=== PATIENT | female | born 1980 ===

== ENCOUNTER 2019-01-13 15:24 | Inpatient (IN) | payer SELFPAY ==
[2019-01-13] MEDS ORDERED: NACL 0.9% 1000 ML 1,000 ML IV ONE (15:32)
--- NOTE | 2019-01-13 15:42 | Emergency Department Report ---
ED Altered Mental Status HPI - General Chief Complaint: Altered Mental Status Stated Complaint: AMS Time Seen by Provider: 01/13/19 15:31 Source: EMS Mode of arrival: Stretcher Limitations: Altered Mental Status - History of Present Illness Initial Comments: Ms. French is a 38 yo Indonesian speaking patient who presents with possible seizure, altered mental status, coffee ground emesis who presents from [facility]. Hx limited due to acute illness. She shook her head when asked if in pain. EMS was provided limited hx. Patient has been officiallyl released from incarceration according to flat folder and EMS. She has been incarcerated since July. MD Complaint: altered mental status, decreased responsiveness -: Sudden Severity: severe Consistency of Symptoms: getting worse Context: unknown - Related Data Allergies Allergy/AdvReac Type Severity Reaction Status Date / Time Unable to Assess Allergy Unverified 01/13/19 15:42 ED Review of Systems ROS: Stated complaint: AMS Other details as noted in HPI Comment: Unobtainable due to pts medical conditions (acute illness AMS) ED Past Medical Hx - Past Medical History Additional medical history: unknown - Surgical History Additional Surgical History: unknown ED Physical Exam - General Limitations: Altered Mental Status General appearance: lethargic, other (ill appearing) - Head Head exam: Present: atraumatic, normocephalic - Eye Eye exam: Present: PERRL, other (esotropia ). Absent: scleral icterus, conjunctival injection - ENT ENT exam: Present: mucous membranes dry, other (tacky dry membranes, dried blood at lips, poor hygiene) - Neck Neck exam: Present: normal inspection, full ROM. Absent: meningismus - Respiratory Respiratory exam: Present: normal lung sounds bilaterally, accessory muscle use, prolonged expiratory, other (Kussmaul respirations). Absent: wheezes, rales, rhonchi - Cardiovascular Cardiovascular Exam: Present: normal rhythm, tachycardia. Absent: systolic murmur - GI/Abdominal GI/Abdominal exam: Present: soft. Absent: distended, tenderness, guarding, rebound - Rectal Rectal exam: Present: other (yellow orange stool, gross blood +hemorrhoids) - Extremities Exam Extremities exam: Present: other (no deformity) - Back Exam Back exam: Present: normal inspection - Neurological Exam Neurological exam: Present: altered - Psychiatric Psychiatric exam: Present: flat affect - Skin Skin exam: Present: pallor ED Course Vital Signs 01/13/19 01/13/19 01/13/19 15:30 15:40 15:46 Temperature 99.2 F Pulse Rate 149 H 149 H Respiratory 31 H 26 H 24 Rate Blood Pressure 155/84 155/84 O2 Sat by Pulse 100 100 Oximetry 01/13/19 01/13/19 01/13/19 16:00 16:16 16:30 Temperature Pulse Rate 130 H 124 H 116 H Respiratory 17 17 22 Rate Blood Pressure 142/109 142/109 113/72 O2 Sat by Pulse 99 100 Oximetry 01/13/19 01/13/19 01/13/19 16:46 17:00 17:16 Temperature Pulse Rate 118 H 121 H 119 H Respiratory 25 H 28 H 21 Rate Blood Pressure 124/77 126/81 124/70 O2 Sat by Pulse Oximetry 01/13/19 17:30 Temperature Pulse Rate 121 H Respiratory 22 Rate Blood Pressure 124/70 O2 Sat by Pulse 100 Oximetry - Lab Data Result diagrams: 01/13/19 15:43 01/13/19 15:43 Lab Results 01/13/19 01/13/19 01/13/19 Range/Units 15:40 15:43 15:43 WBC 13.6 H (4.5-11.0) K/mm3 RBC 3.94 (3.65-5.03) M/mm3 Hgb 11.5 (10.1-14.3) gm/dl Hct 34.6 (30.3-42.9) % MCV 88 (79-97) fl MCH 29 (28-32) pg MCHC 33 (30-34) % RDW 14.7 (13.2-15.2) % Plt Count 317 (140-440) K/mm3 Lymph % (Auto) 5.4 L (13.4-35.0) % Clinch % (Auto) 5.8 (0.0-7.3) % Eos % (Auto) 0.0 (0.0-4.3) % Baso % (Auto) 0.2 (0.0-1.8) % Lymph # 0.7 L (1.2-5.4) K/mm3 Clinch # 0.8 (0.0-0.8) K/mm3 Eos # 0.0 (0.0-0.4) K/mm3 Baso # 0.0 (0.0-0.1) K/mm3 Seg Neutrophils % 88.6 H (40.0-70.0) % Seg Neutrophils # 12.0 H (1.8-7.7) K/mm3 PT TNR INR TNR APTT TNR POC ABG pH (7.35-7.45) POC ABG pO2 (80-105) POC ABG HCO3 (22-26 mml/L) POC ABG Total CO2 (23-27mmol/L) POC ABG O2 Sat POC ABG Base Excess ((-2) - (+3)mmol/L) FiO2 % Sodium (137-145) mmol/L Potassium (3.6-5.0) mmol/L Chloride (98-107) mmol/L Carbon Dioxide (22-30) mmol/L Anion Gap mmol/L BUN (7-17) mg/dL Creatinine (0.7-1.2) mg/dL Estimated GFR ml/min BUN/Creatinine Ratio % Glucose (65-100) mg/dL POC Glucose 109 H (70-105) Lactic Acid (0.7-2.0) mmol/L Calcium (8.4-10.2) mg/dL Total Bilirubin (0.1-1.2) mg/dL AST (5-40) units/L ALT (7-56) units/L Alkaline Phosphatase (35-129) units/L Ammonia (25-60) umol/L Total Creatine Kinase (30-135) units/L Troponin T (0.00-0.029) ng/mL Total Protein (6.3-8.2) g/dL Albumin (3.9-5) g/dL Albumin/Globulin Ratio % TSH (0.270-4.200) mlU/mL HCG, Quant (0-4) mIU/mL Urine Color (Yellow) Urine Turbidity (Clear) Urine pH (5.0-7.0) Ur Specific [place] (1.003-1.030) Urine Protein (Negative) mg/dL Urine Glucose (UA) (Negative) mg/dL Urine Ketones (Negative) mg/dL Urine Blood (Negative) Urine Nitrite (Negative) Urine Bilirubin (Negative) Urine Urobilinogen (<2.0) mg/dL Ur Leukocyte Esterase (Negative) Urine WBC (Auto) (0.0-6.0) /HPF Urine RBC (Auto) (0.0-6.0) /HPF U Epithel Cells (Auto) (0-13.0) /HPF Urine Mucus /HPF Salicylates (2.8-20.0) mg/dL Urine Opiates Screen Urine Methadone Screen Acetaminophen (10.0-30.0) ug/mL Ur Barbiturates Screen Ur Phencyclidine Scrn Ur Amphetamines Screen U Benzodiazepines Scrn Urine Cocaine Screen U Marijuana (THC) Screen Drugs of Abuse Note Plasma/Serum Alcohol (0-0.07) % 01/13/19 01/13/19 01/13/19 Range/Units 15:43 15:43 15:43 WBC (4.5-11.0) K/mm3 RBC (3.65-5.03) M/mm3 Hgb (10.1-14.3) gm/dl Hct (30.3-42.9) % MCV (79-97) fl MCH (28-32) pg MCHC (30-34) % RDW (13.2-15.2) % Plt Count (140-440) K/mm3 Lymph % (Auto) (13.4-35.0) % Clinch % (Auto) (0.0-7.3) % Eos % (Auto) (0.0-4.3) % Baso % (Auto) (0.0-1.8) % Lymph # (1.2-5.4) K/mm3 Clinch # (0.0-0.8) K/mm3 Eos # (0.0-0.4) K/mm3 Baso # (0.0-0.1) K/mm3 Seg Neutrophils % (40.0-70.0) % Seg Neutrophils # (1.8-7.7) K/mm3 PT INR APTT POC ABG pH (7.35-7.45) POC ABG pO2 (80-105) POC ABG HCO3 (22-26 mml/L) POC ABG Total CO2 (23-27mmol/L) POC ABG O2 Sat POC ABG Base Excess ((-2) - (+3)mmol/L) FiO2 % Sodium 145 (137-145) mmol/L Potassium 2.8 L* (3.6-5.0) mmol/L Chloride 101.9 (98-107) mmol/L Carbon Dioxide 9 L* D (22-30) mmol/L Anion Gap 37 mmol/L BUN 23 H (7-17) mg/dL Creatinine 0.8 (0.7-1.2) mg/dL Estimated GFR > 60 ml/min BUN/Creatinine Ratio 29 % Glucose 109 H (65-100) mg/dL POC Glucose (70-105) Lactic Acid 14.10 H* (0.7-2.0) mmol/L Calcium 8.2 L (8.4-10.2) mg/dL Total Bilirubin 1.30 H (0.1-1.2) mg/dL AST 46 H (5-40) units/L ALT 34 (7-56) units/L Alkaline Phosphatase 86 (35-129) units/L Ammonia 157.0 H (25-60) umol/L Total Creatine Kinase 133 (30-135) units/L Troponin T 0.019 (0.00-0.029) ng/mL Total Protein 6.8 (6.3-8.2) g/dL Albumin 3.7 L (3.9-5) g/dL Albumin/Globulin Ratio 1.2 % TSH (0.270-4.200) mlU/mL HCG, Quant (0-4) mIU/mL Urine Color (Yellow) Urine Turbidity (Clear) Urine pH (5.0-7.0) Ur Specific [place] (1.003-1.030) Urine Protein (Negative) mg/dL Urine Glucose (UA) (Negative) mg/dL Urine Ketones (Negative) mg/dL Urine Blood (Negative) Urine Nitrite (Negative) Urine Bilirubin (Negative) Urine Urobilinogen (<2.0) mg/dL Ur Leukocyte Esterase (Negative) Urine WBC (Auto) (0.0-6.0) /HPF Urine RBC (Auto) (0.0-6.0) /HPF U Epithel Cells (Auto) (0-13.0) /HPF Urine Mucus /HPF Salicylates (2.8-20.0) mg/dL Urine Opiates Screen Urine Methadone Screen Acetaminophen (10.0-30.0) ug/mL Ur Barbiturates Screen Ur Phencyclidine Scrn Ur Amphetamines Screen U Benzodiazepines Scrn Urine Cocaine Screen U Marijuana (THC) Screen Drugs of Abuse Note Plasma/Serum Alcohol (0-0.07) % 01/13/19 01/13/19 01/13/19 Range/Units 15:43 15:43 15:43 WBC (4.5-11.0) K/mm3 RBC (3.65-5.03) M/mm3 Hgb (10.1-14.3) gm/dl Hct (30.3-42.9) % MCV (79-97) fl MCH (28-32) pg MCHC (30-34) % RDW (13.2-15.2) % Plt Count (140-440) K/mm3 Lymph % (Auto) (13.4-35.0) % Clinch % (Auto) (0.0-7.3) % Eos % (Auto) (0.0-4.3) % Baso % (Auto) (0.0-1.8) % Lymph # (1.2-5.4) K/mm3 Clinch # (0.0-0.8) K/mm3 Eos # (0.0-0.4) K/mm3 Baso # (0.0-0.1) K/mm3 Seg Neutrophils % (40.0-70.0) % Seg Neutrophils # (1.8-7.7) K/mm3 PT INR APTT POC ABG pH (7.35-7.45) POC ABG pO2 (80-105) POC ABG HCO3 (22-26 mml/L) POC ABG Total CO2 (23-27mmol/L) POC ABG O2 Sat POC ABG Base Excess ((-2) - (+3)mmol/L) FiO2 % Sodium (137-145) mmol/L Potassium (3.6-5.0) mmol/L Chloride (98-107) mmol/L Carbon Dioxide (22-30) mmol/L Anion Gap mmol/L BUN (7-17) mg/dL Creatinine (0.7-1.2) mg/dL Estimated GFR ml/min BUN/Creatinine Ratio % Glucose (65-100) mg/dL POC Glucose (70-105) Lactic Acid (0.7-2.0) mmol/L Calcium (8.4-10.2) mg/dL Total Bilirubin (0.1-1.2) mg/dL AST (5-40) units/L ALT (7-56) units/L Alkaline Phosphatase (35-129) units/L Ammonia (25-60) umol/L Total Creatine Kinase (30-135) units/L Troponin T (0.00-0.029) ng/mL Total Protein (6.3-8.2) g/dL Albumin (3.9-5) g/dL Albumin/Globulin Ratio % TSH 3.070 (0.270-4.200) mlU/mL HCG, Quant (0-4) mIU/mL Urine Color (Yellow) Urine Turbidity (Clear) Urine pH (5.0-7.0) Ur Specific [place] (1.003-1.030) Urine Protein (Negative) mg/dL Urine Glucose (UA) (Negative) mg/dL Urine Ketones (Negative) mg/dL Urine Blood (Negative) Urine Nitrite (Negative) Urine Bilirubin (Negative) Urine Urobilinogen (<2.0) mg/dL Ur Leukocyte Esterase (Negative) Urine WBC (Auto) (0.0-6.0) /HPF Urine RBC (Auto) (0.0-6.0) /HPF U Epithel Cells (Auto) (0-13.0) /HPF Urine Mucus /HPF Salicylates < 0.3 L (2.8-20.0) mg/dL Urine Opiates Screen Urine Methadone Screen Acetaminophen < 5.0 L (10.0-30.0) ug/mL Ur Barbiturates Screen Ur Phencyclidine Scrn Ur Amphetamines Screen U Benzodiazepines Scrn Urine Cocaine Screen U Marijuana (THC) Screen Drugs of Abuse Note Plasma/Serum Alcohol (0-0.07) % 01/13/19 01/13/19 01/13/19 Range/Units 15:43 16:23 16:23 WBC (4.5-11.0) K/mm3 RBC (3.65-5.03) M/mm3 Hgb (10.1-14.3) gm/dl Hct (30.3-42.9) % MCV (79-97) fl MCH (28-32) pg MCHC (30-34) % RDW (13.2-15.2) % Plt Count (140-440) K/mm3 Lymph % (Auto) (13.4-35.0) % Clinch % (Auto) (0.0-7.3) % Eos % (Auto) (0.0-4.3) % Baso % (Auto) (0.0-1.8) % Lymph # (1.2-5.4) K/mm3 Clinch # (0.0-0.8) K/mm3 Eos # (0.0-0.4) K/mm3 Baso # (0.0-0.1) K/mm3 Seg Neutrophils % (40.0-70.0) % Seg Neutrophils # (1.8-7.7) K/mm3 PT INR APTT POC ABG pH (7.35-7.45) POC ABG pO2 (80-105) POC ABG HCO3 (22-26 mml/L) POC ABG Total CO2 (23-27mmol/L) POC ABG O2 Sat POC ABG Base Excess ((-2) - (+3)mmol/L) FiO2 % Sodium (137-145) mmol/L Potassium (3.6-5.0) mmol/L Chloride (98-107) mmol/L Carbon Dioxide (22-30) mmol/L Anion Gap mmol/L BUN (7-17) mg/dL Creatinine (0.7-1.2) mg/dL Estimated GFR ml/min BUN/Creatinine Ratio % Glucose (65-100) mg/dL POC Glucose (70-105) Lactic Acid (0.7-2.0) mmol/L Calcium (8.4-10.2) mg/dL Total Bilirubin (0.1-1.2) mg/dL AST (5-40) units/L ALT (7-56) units/L Alkaline Phosphatase (35-129) units/L Ammonia (25-60) umol/L Total Creatine Kinase (30-135) units/L Troponin T (0.00-0.029) ng/mL Total Protein (6.3-8.2) g/dL Albumin (3.9-5) g/dL Albumin/Globulin Ratio % TSH (0.270-4.200) mlU/mL HCG, Quant (0-4) mIU/mL Urine Color Peri (Yellow) Urine Turbidity Clear (Clear) Urine pH 6.0 (5.0-7.0) Ur Specific [place] 1.027 (1.003-1.030) Urine Protein 100 mg/dl (Negative) mg/dL Urine Glucose (UA) Neg (Negative) mg/dL Urine Ketones 20 (Negative) mg/dL Urine Blood Sm (Negative) Urine Nitrite Neg (Negative) Urine Bilirubin Neg (Negative) Urine Urobilinogen 4.0 (<2.0) mg/dL Ur Leukocyte Esterase Neg (Negative) Urine WBC (Auto) 4.0 (0.0-6.0) /HPF Urine RBC (Auto) 1.0 (0.0-6.0) /HPF U Epithel Cells (Auto) 1.0 (0-13.0) /HPF Urine Mucus 2+ /HPF Salicylates (2.8-20.0) mg/dL Urine Opiates Screen Presumptive negative Urine Methadone Screen Presumptive negative Acetaminophen (10.0-30.0) ug/mL Ur Barbiturates Screen Presumptive negative Ur Phencyclidine Scrn Presumptive negative Ur Amphetamines Screen Presumptive negative U Benzodiazepines Scrn Presumptive negative Urine Cocaine Screen Presumptive negative U Marijuana (THC) Screen Presumptive negative Drugs of Abuse Note Disclamer Plasma/Serum Alcohol < 0.01 (0-0.07) % 01/13/19 01/13/19 01/13/19 Range/Units 17:44 17:44 18:03 WBC (4.5-11.0) K/mm3 RBC (3.65-5.03) M/mm3 Hgb (10.1-14.3) gm/dl Hct (30.3-42.9) % MCV (79-97) fl MCH (28-32) pg MCHC (30-34) % RDW (13.2-15.2) % Plt Count (140-440) K/mm3 Lymph % (Auto) (13.4-35.0) % Clinch % (Auto) (0.0-7.3) % Eos % (Auto) (0.0-4.3) % Baso % (Auto) (0.0-1.8) % Lymph # (1.2-5.4) K/mm3 Clinch # (0.0-0.8) K/mm3 Eos # (0.0-0.4) K/mm3 Baso # (0.0-0.1) K/mm3 Seg Neutrophils % (40.0-70.0) % Seg Neutrophils # (1.8-7.7) K/mm3 PT 20.1 H INR 1.76 H APTT 29.2 POC ABG pH 7.371 (7.35-7.45) POC ABG pO2 142 H (80-105) POC ABG HCO3 10.6 (22-26 mml/L) POC ABG Total CO2 11 (23-27mmol/L) POC ABG O2 Sat 99 POC ABG Base Excess -15 ((-2) - (+3)mmol/L) FiO2 32 % Sodium (137-145) mmol/L Potassium (3.6-5.0) mmol/L Chloride (98-107) mmol/L Carbon Dioxide (22-30) mmol/L Anion Gap mmol/L BUN (7-17) mg/dL Creatinine (0.7-1.2) mg/dL Estimated GFR ml/min BUN/Creatinine Ratio % Glucose (65-100) mg/dL POC Glucose (70-105) Lactic Acid (0.7-2.0) mmol/L Calcium (8.4-10.2) mg/dL Total Bilirubin (0.1-1.2) mg/dL AST (5-40) units/L ALT (7-56) units/L Alkaline Phosphatase (35-129) units/L Ammonia (25-60) umol/L Total Creatine Kinase (30-135) units/L Troponin T (0.00-0.029) ng/mL Total Protein (6.3-8.2) g/dL Albumin (3.9-5) g/dL Albumin/Globulin Ratio % TSH (0.270-4.200) mlU/mL HCG, Quant < 2 (0-4) mIU/mL Urine Color (Yellow) Urine Turbidity (Clear) Urine pH (5.0-7.0) Ur Specific [place] (1.003-1.030) Urine Protein (Negative) mg/dL Urine Glucose (UA) (Negative) mg/dL Urine Ketones (Negative) mg/dL Urine Blood (Negative) Urine Nitrite (Negative) Urine Bilirubin (Negative) Urine Urobilinogen (<2.0) mg/dL Ur Leukocyte Esterase (Negative) Urine WBC (Auto) (0.0-6.0) /HPF Urine RBC (Auto) (0.0-6.0) /HPF U Epithel Cells (Auto) (0-13.0) /HPF Urine Mucus /HPF Salicylates (2.8-20.0) mg/dL Urine Opiates Screen Urine Methadone Screen Acetaminophen (10.0-30.0) ug/mL Ur Barbiturates Screen Ur Phencyclidine Scrn Ur Amphetamines Screen U Benzodiazepines Scrn Urine Cocaine Screen U Marijuana (THC) Screen Drugs of Abuse Note Plasma/Serum Alcohol (0-0.07) % 01/13/19 19:13 EKG obtained 1906 Sinus tachycardia rate 125 beats a minute normal intervals no ST-T signs ischemia normal EKG with exception of tachycardia - Medical Decision Making Mrs. French presents with altered mental status, seizure activity coffee-ground emesis from [facility]. I personally witnessed I witnessed 60 second generalized tonic clonic seizure approximately 30 minutes after patient arrived to the emergency department. 1. altered mental status, seizure: possible status epilepticus vs alcohol withdrawal syndrome, hepatic encephalopathy severe hyperammonemia ?toxic ingestion 2. severe lactic acidosis caused by recurrent seizure vs sepsis vs unknown toxic ingestion 3. liver dysfunction? disease?: hyperammonemia, elevated AST, elevated PT/INR with normal appearance of liver on CT scan 4. cholelithiasis 5. severe metabolic acidosis: must consider toxic ingestion Critical Care Time: Yes Critical care time in (mins) excluding proc time.: 60 Critical care attestation.: If time is entered above; I have spent that time in minutes in the direct care of this critically ill patient, excluding procedure time. 40 minutes of critical care time excluding procedures were used in the care of the patient. Patient required multiple assessments and interventions. I reviewed the electronic medical record. I spoke with consultants involved in the care of the patient. ED Disposition Clinical Impression: Acute metabolic encephalopathy, Liver disease, Lactic acidosis, Hyperammonemia, Status epilepticus, Cholelithiasis, Seizure, Metabolic acidosis Disposition: 09 OP ADMIT IP TO THIS HOSP Is pt being admited?: Yes Does the pt Need Aspirin: No Condition: Stable
[2019-01-13] MEDS ORDERED: ATIVAN IV ONE ×2 (15:55→17:00)
[2019-01-13] MEDS ORDERED: ATIVAN ONE (15:57)
[2019-01-13 15:59] LABS: Basophils % (Auto) 0.2 % (0.0-1.8); Hematocrit 34.6 % (30.3-42.9); Hemoglobin 11.5 gm/dl (10.1-14.3); Lymphocytes # (Auto) 0.7 K/mm3 (1.2-5.4); Lymphocytes % (Auto) 5.4 % (13.4-35.0); Mean Corpuscular HGB Conc 33 % (30-34); Mean Corpuscular Volume 88 fl (79-97); Monocytes # (Auto) 0.8 K/mm3 (0.0-0.8); Monocytes % (Auto) 5.8 % (0.0-7.3); Platelet Count 317 K/mm3 (140-440); Red Blood Count 3.94 M/mm3 (3.65-5.03); Red Cell Distribution Width 14.7 % (13.2-15.2)
--- NOTE | 2019-01-13 16:21 | XRay Report ---
CHEST 1 VIEW INDICATION: Altered Mental Status. COMPARISON: FINDINGS: Support devices: None. Heart: Within normal limits. Lungs/Pleura: No acute air space or interstitial disease. Additional findings: None. IMPRESSION: No acute findings. Signer Name: Gareth Mehta Jr, MD Signed: 01/13/2019 4:16 PM Workstation Name: [id number]
[2019-01-13] MEDS ORDERED: VANCOMYCIN 1,250 MG in NACL 0.9% 500 ML 500 ML IV ONE (16:22)
[2019-01-13] MEDS ORDERED: NACL 0.9% 1000 ML IV ONE (16:22)
[2019-01-13 16:24] LABS: Alanine Aminotransferase 34 units/L (7-56); Albumin 3.7 g/dL (3.9-5); BUN/Creatinine Ratio 29; Blood Urea Nitrogen 23 mg/dL (7-17); Calcium 8.2 mg/dL (8.4-10.2); Hemolysis Index 4
[2019-01-13 16:38] LABS: Partial Thromboplastin Time TNR Sec. (24.2-36.6)
[2019-01-13 16:41] LABS: INR TNR (0.87-1.13)
[2019-01-13] MEDS ORDERED: KEPPRA 1,000 MG/NS 0.75% 100ML 1,000 MG/100 ML BAG IV ONE (16:51)
[2019-01-13 16:54] LABS: Bilirubin,Urine NEG (Negative); Blood,Urine SM (Negative); Color,Urine Amber (Yellow); Mucus,Urine 2+ /HPF
[2019-01-13 16:59] LABS: Amphetamine Screen,Urine PRESUMPTIVE NEGATIVE; Benzodiazepines Screen,Urine PRESUMPTIVE NEGATIVE; Cannabinoid Screen,Urine PRESUMPTIVE NEGATIVE; Cocaine Screen,Urine PRESUMPTIVE NEGATIVE; Methadone Screen,Urine PRESUMPTIVE NEGATIVE; Opiate Screen,Urine PRESUMPTIVE NEGATIVE
[2019-01-13] MEDS ORDERED: VANCOMYCIN PHARMACY TO DOSE IV SCH ×2 (17:00→20:00)
[2019-01-13] MEDS ORDERED: CEPHULAC PO ONE (17:57)
[2019-01-13 18:36] LABS: INR 1.76 (0.87-1.13); Partial Thromboplastin Time 29.2 Sec. (24.2-36.6)
--- NOTE | 2019-01-13 19:03 | Cat Scan Report ---
CT HEAD WITHOUT CONTRAST INDICATION / CLINICAL INFORMATION: ams. Seizure. TECHNIQUE: All CT scans at this location are performed using CT dose reduction for ALARA by means of automated e xposure control. COMPARISON: None available. FINDINGS: HEMORRHAGE: No evidence of intracranial hemorrhage or extra-axial fluid collection. EXTRA-AXIAL SPACES: Cortical sulci, sylvian fissures and basilar cisterns have an unremarkable appear ance. VENTRICULAR SYSTEM: The ventricular system is of normal size and configuration. CEREBRAL PARENCHYMA: No areas of abnormal brain parenchymal attenuation are identified. There is no i ndication of recent infarction. MIDLINE SHIFT OR HERNIATION: There is no mass effect. CEREBELLUM / BRAINSTEM: Brainstem and cerebellum have an unremarkable appearance. INTRACRANIAL VESSELS:No abnormalities are identified on this noncontrast head CT. ORBITS: visualized portions of the orbits have an unremarkable appearance. SOFT TISSUES of HEAD: No significant abnormality. CALVARIUM: Evaluation of bone windows reveals no abnormalities. PARANASAL SINUSES / MASTOID AIR CELLS: Paranasal sinuses are free from inflammatory mucosal disease. Mastoid air cells are normally pneumatized. IMPRESSION: 1. No acute intracranial abnormality is identified on CT head without contrast.. Signer Name: Lucio Evans MD Signed: 01/13/2019 6:59 PM Workstation Name: [id number]
--- NOTE | 2019-01-13 19:07 | Cat Scan Report ---
CT abdomen pelvis w con INDICATION / CLINICAL INFORMATION: elevated ammonia severe lactic acidosis. TECHNIQUE: All CT scans at this location are performed using CT dose reduction for ALARA by means of automated e xposure control. COMPARISON: None available. FINDINGS: Acute disease is seen in either lower lung. ABDOMEN: Cholelithiasis. The liver, spleen, pancreas and kidneys are normal. No small bowel distention. The colon appears normal. Pelvis: The appendix is normal. No dependent fluid collections or inflammatory changes are seen in the pelvis. No significant osseous abnormality. IMPRESSION: 1. Cholelithiasis. 2. No acute abnormality. Signer Name: Kartik Lang MD Signed: 01/13/2019 7:03 PM Workstation Name: [id number]
[2019-01-13] MEDS ORDERED: PROVENTIL IH PRN (19:42)
[2019-01-13] MEDS ORDERED: SODIUM CHLORIDE FLUSH SYRINGE 10 ML IV PRN (19:42)
[2019-01-13] MEDS ORDERED: ZOFRAN IV PRN (19:42)
[2019-01-13] MEDS ORDERED: TYLENOL PR PRN (19:52)
--- NOTE | 2019-01-13 19:53 | XRay Report ---
ABDOMEN 01/13/2019 INDICATION / CLINICAL INFORMATION: NG placement. COMPARISON: None available. FINDINGS: Nasogastric tube is positioned in the mid stomach. Signer Name: Kartik Lang MD Signed: 01/13/2019 7:49 PM Workstation Name: [id number]
[2019-01-13] MEDS ORDERED: NACL 0.9% 1000 ML 1,000 ML IV SCH (20:00)
[2019-01-13] MEDS ORDERED: KCL 10MEQ/100ML 40 MEQ/400 ML BAG IV ONE (20:13)
[2019-01-13] MEDS ORDERED: NACL 0.9% 1000 ML 1,000 ML ONE (20:25)
[2019-01-13] MEDS: KCL 10MEQ/100ML 10 MEQ/100 ML BAG IV SCH ×3 (20:30→23:11)
--- NOTE | 2019-01-13 20:32 | History and Physical Report ---
History of Present Illness Date of examination: 01/13/19 Date of admission: 01/13/2019 Chief complaint: AMS ?? Tachycardia possible dehydration History of present illness: 38-year-old female with unknown past medical history presents to [facility] ED via [facility] transportation services with complaints of altered mental status. Patient has been an inmate at [facility] since July of this year. According to EMS patient has been officially release from [facility] as of today. History is taken from medical records. Review of medical records shows that patient was transferred from [facility] to [facility] for further evaluation of possible dehydration, lethargy, and not verbally responding. At the [facility] she was tachycardic with heart rate of 131 bpm, had coffee ground emesis, and profoundly noted confusion. Past History Past Medical History: other (unable to obtain due to patient's mentation) Past Surgical History: Other (unable to obtain due to patient's mentation) Social history: other (incarcerated from July of this year, has been officially release from incarceration per EMS report) Family history: no significant family history Medications and Allergies Allergies Allergy/AdvReac Type Severity Reaction Status Date / Time Unable to Assess Allergy Unverified 01/13/19 15:42 Active Meds: Active Medications Acetaminophen (Tylenol) 650 mg NJ Q4H PRN PRN Reason: Pain, Mild (1-3)/ Fever>100.5 Albuterol (Proventil) 2.5 mg IH Q3HRT PRN PRN Reason: Shortness Of Breath Enoxaparin Sodium (Lovenox) 40 mg SUB-Q QDAY@2200 JOLIE Ceftriaxone Sodium (Rocephin/Ns 2 Gm/100 Ml) 2 gm in 100 mls @ 200 mls/hr IV Q12HR JOLIE; Protocol Sodium Chloride (Nacl 0.9% 1000 Ml) 1,000 mls @ 50 mls/hr IV DIRECT JOLIE Cefepime HCl (Maxipime/Ns 1 Gm/100 Ml) 1 gm in 100 mls @ 200 mls/hr IV Q8HR JOLIE; Protocol Levetiracetam 1,000 mg/ (Dextrose) 110 mls @ 400 mls/hr IV Q12HR JOLIE Pantoprazole Sodium 80 mg/ (Sodium Chloride) 100 mls @ 10 mls/hr IV DIRECT JOLIE Potassium Chloride (Kcl 10meq/100ml) 10 meq in 100 mls @ 100 mls/hr IV Q1H JOLIE Stop: 01/13/19 23:59 Lorazepam (Ativan) 2 mg IV Q4H PRN PRN Reason: Agitation; seizure Morphine Sulfate (Morphine) 2 mg IV Q4H PRN PRN Reason: Pain, Moderate (4-6) Ondansetron HCl (Zofran) 4 mg IV Q8H PRN PRN Reason: Nausea And Vomiting Sodium Bicarbonate (Sodium Bicarbonate 50meq Syringe) 50 meq IV ONCE JOLIE Stop: 01/14/19 20:01 Sodium Chloride (Sodium Chloride Flush Syringe 10 Ml) 10 ml IV BID JOLIE Sodium Chloride (Sodium Chloride Flush Syringe 10 Ml) 10 ml IV PRN PRN PRN Reason: LINE FLUSH Review of Systems ROS unobtainable: due to mental status Exam - Physical Exam Narrative exam: Physical exam General appearance: Present: Mild distress, awake, ill appearing, adult female - EENT Eyes: Present: PERRL, ENT: hearing intact, poor dentition, dry mucous membrane, dried blood on lips and teeth - Neck Neck: Present: supple, normal ROM - Respiratory Respiratory effort: Non-labored, on supplemental oxygen Respiratory: bilateral: diminished (bases) - Cardiovascular Heart rate: 121 (bpm) Rhythm: Tachycardic Heart Sounds: Present: S1 & S2. Absent: rub, click - Extremities Extremities: no ischemia, pulses intact, - Peripheral Assessment Peripheral Pulses: within normal limits - Abdominal General gastrointestinal: soft, non-tender, normal bowel sounds - Integumentary Integumentary: Present: warm, dry, pallor - Musculoskeletal Musculoskeletal: generalized weakness - Psychiatric Psychiatric: Flat affect, unable to assess - Constitutional Vitals: Temp Pulse Resp BP Pulse Ox 99.2 F 121 H 22 124/70 100 01/13/19 15:40 01/13/19 17:30 01/13/19 17:30 01/13/19 17:30 01/13/19 17:30 Results - Labs CBC & Chem 7: 01/13/19 15:43 01/13/19 15:43 Labs: Laboratory Last Values WBC 13.6 K/mm3 (4.5-11.0) H 01/13/19 15:43 RBC 3.94 M/mm3 (3.65-5.03) 07/30/19 15:43 Hgb 11.5 gm/dl (10.1-14.3) 01/13/19 15:43 Hct 34.6 % (30.3-42.9) 01/13/19 15:43 MCV 88 fl (79-97) 01/13/19 15:43 MCH 29 pg (28-32) 01/13/19 15:43 MCHC 33 % (30-34) 01/13/19 15:43 RDW 14.7 % (13.2-15.2) 01/13/19 15:43 Plt Count 317 K/mm3 (140-440) 01/13/19 15:43 Lymph % (Auto) 5.4 % (13.4-35.0) L 01/13/19 15:43 [place] % (Auto) 5.8 % (0.0-7.3) 01/13/19 15:43 Eos % (Auto) 0.0 % (0.0-4.3) 01/13/19 15:43 Baso % (Auto) 0.2 % (0.0-1.8) 01/13/19 15:43 Lymph # 0.7 K/mm3 (1.2-5.4) L 01/13/19 15:43 [place] # 0.8 K/mm3 (0.0-0.8) 01/13/19 15:43 Eos # 0.0 K/mm3 (0.0-0.4) 01/13/19 15:43 Baso # 0.0 K/mm3 (0.0-0.1) 01/13/19 15:43 Seg Neutrophils % 88.6 % (40.0-70.0) H 01/13/19 15:43 Seg Neutrophils # 12.0 K/mm3 (1.8-7.7) H 01/13/19 15:43 PT 20.1 Sec. (12.2-14.9) H 01/13/19 17:44 INR 1.76 (0.87-1.13) H 01/13/19 17:44 APTT 29.2 Sec. (24.2-36.6) 01/13/19 17:44 POC ABG pH 7.371 (7.35-7.45) 01/13/19 18:03 POC ABG pO2 142 (80-105) H 01/13/19 18:03 POC ABG HCO3 10.6 (22-26 mml/L) 01/13/19 18:03 POC ABG Total CO2 11 (23-27mmol/L) 01/13/19 18:03 POC ABG O2 Sat 99 01/13/19 18:03 POC ABG Base Excess -15 ((-2) - (+3)mmol/L) 01/13/19 18:03 32 % 01/13/19 18:03 Sodium 145 mmol/L (137-145) 01/13/19 15:43 Potassium 2.8 mmol/L (3.6-5.0) L* 01/13/19 15:43 Chloride 101.9 mmol/L (98-107) 01/13/19 15:43 Carbon Dioxide 9 mmol/L (22-30) L* D 01/13/19 15:43 37 mmol/L 01/13/19 15:43 BUN 23 mg/dL (7-17) H 01/13/19 15:43 0.8 mg/dL (0.7-1.2) 01/13/19 15:43 Estimated GFR > 60 ml/min 01/13/19 15:43 29 % 01/13/19 15:43 Glucose 109 mg/dL (65-100) H 01/13/19 15:43 POC Glucose 109 (70-105) H 01/13/19 15:40 Lactic Acid 14.10 mmol/L (0.7-2.0) H* 01/13/19 15:43 Calcium 8.2 mg/dL (8.4-10.2) L 01/13/19 15:43 1.30 mg/dL (0.1-1.2) H 01/13/19 15:43 AST 46 units/L (5-40) H 01/13/19 15:43 ALT 34 units/L (7-56) 01/13/19 15:43 86 units/L (35-129) 01/13/19 15:43 157.0 umol/L (25-60) H 01/13/19 15:43 296 units/L (91-180) H 01/13/19 15:43 133 units/L (30-135) 01/13/19 15:43 0.019 ng/mL (0.00-0.029) 01/13/19 15:43 6.8 g/dL (6.3-8.2) 01/13/19 15:43 3.7 g/dL (3.9-5) L 01/13/19 15:43 1.2 % 01/13/19 15:43 71 units/L (13-60) H 01/13/19 15:43 TSH 3.070 mlU/mL (0.270-4.200) 01/13/19 15:43 HCG, Quant < 2 mIU/mL (0-4) 01/13/19 17:44 Peri (Yellow) 01/13/19 16:23 Clear (Clear) 01/13/19 16:23 6.0 (5.0-7.0) 01/13/19 16:23 Ur Specific [place] 1.027 (1.003-1.030) 01/13/19 16:23 100 mg/dl mg/dL (Negative) 01/13/19 16:23 Neg mg/dL (Negative) 01/13/19 16:23 20 mg/dL (Negative) 01/13/19 16:23 Sm (Negative) 01/13/19 16:23 Neg (Negative) 01/13/19 16:23 Neg (Negative) 01/13/19 16:23 4.0 mg/dL (<2.0) 01/13/19 16:23 Ur Leukocyte Esterase Neg (Negative) 01/13/19 16:23 4.0 /HPF (0.0-6.0) 01/13/19 16:23 1.0 /HPF (0.0-6.0) 01/13/19 16:23 U Epithel Cells (Auto) 1.0 /HPF (0-13.0) 01/13/19 16:23 2+ /HPF 01/13/19 16:23 Salicylates < 0.3 mg/dL (2.8-20.0) L 01/13/19 15:43 Presumptive negative 01/13/19 16:23 Presumptive negative 01/13/19 16:23 Acetaminophen < 5.0 ug/mL (10.0-30.0) L 07/30/19 15:43 Ur Barbiturates Screen Presumptive negative 01/13/19 16:23 Ur Phencyclidine Scrn Presumptive negative 01/13/19 16:23 Ur Amphetamines Screen Presumptive negative 01/13/19 16:23 U Benzodiazepines Scrn Presumptive negative 01/13/19 16:23 Presumptive negative 01/13/19 16:23 U Marijuana (THC) Screen Presumptive negative 01/13/19 16:23 Disclamer 01/13/19 16:23 Plasma/Serum Alcohol < 0.01 % (0-0.07) 01/13/19 15:43 - Imaging and Cardiology Chest x-ray: report reviewed (Lungs/Pleura: No acute air space or interstitial disease. ), image reviewed Imaging and Cardiology: CT Abdomen/Pelvis: Findings: Acute disease is seen in either lower lung. Abdomen: Cholelithiasis. The liver, spleen, pancreas and kidneys are normal. No small bowel distention. The colon appears normal. Pelvis: The appendix is normal. No dependent fluid collections or inflammatory changes are seen in the pelvis. No significant osseous abnormality. IMPRESSION: 1. Cholelithiasis. 2. No acute abnormality. Abdominal X-ray: Findings: Nasogastric tube is positioned in the mid stomach. CT Head: Findings: HEMORRHAGE: No evidence of intracranial hemorrhage or extra-axial fluid collection. EXTRA-AXIAL SPACES: Cortical sulci, sylvian fissures and basilar cisterns have an unremarkable appearance. VENTRICULAR SYSTEM: The ventricular system is of normal size and configuration. CEREBRAL PARENCHYMA: No areas of abnormal brain parenchymal attenuation are identified. There is no indication of recent infarction. MIDLINE SHIFT OR HERNIATION: There is no mass effect. CEREBELLUM / BRAINSTEM: Brainstem and cerebellum have an unremarkable appear ance. INTRACRANIAL VESSELS:No abnormalities are identified on this noncontrast head CT. ORBITS: visualized portions of the orbits have an unremarkable appearance. SOFT TISSUES of HEAD: No significant abnormality. CALVARIUM: Evaluation of bone windows reveals no abnormalities. PARANASAL SINUSES / MASTOID AIR CELLS: Paranasal sinuses are free from inflammatory mucosal disease. Mastoid air cells are normally pneumatized. IMPRESSION: 1. No acute intracranial abnormality is identified on CT head without contrast. Assessment and Plan Assessment and plan: 38-year-old female with unknown past medical history presents to [facility] ED via [facility] transportation services with complaints of altered mental status, dehydration, coffee ground emesis, and tachycardia. At the time of my examination pt is awake and sitting up in stretcher. She is on 2L supplemental oxygen. She is not able to fully follow commands. She remains non-verbal. Pt has NG tube to LIS with small amount of dark brown drainage in collection canister. Sepsis -Sinus tachycardia at 124bpm -Elevated respiratory rate at 28 breaths per minute -Leukocytosis, WBC 13.6 -Initiate sepsis protocol -Gentle hydration with IVF -IV cefepime and vancomycin Cholelithiasis -Seen on CT abdomen and pelvis -GI consult pending Upper GI bleed -Patient noted to have coffee-ground -NPO -NG tube placed to LIS -Start Protonix drip -GI consulted Acute hepatic encephalopathy -? Chronic liver disease -Hyperammonemia 157, elevated AST 46, elevated lipase 71 --Received lactulose -CT abdomen/pelvis showed normal liver -Continue to monitor hepatic function -GI consulted -Status epilepticus -?? Hx Seizure disorders -Witnessed seizure in ED -Termination of seizure with administration of IV Ativan -IV Ativan prn -IV Keppra 1gm BID -Currently in post ictal state -Seizure precautions initiated -Neuro checks Hypokalemia -Potassium on admission 2.8 -Received IV potassium replacement -Continue to monitor electrolytes, replete as needed Lactic acidosis -Lactic acid on admission 14.10 -on IV Abx -on IVF -continue to monitor DVT PPX -on Lovenox Advance Directives: No VTE prophylaxis?: Chemical Plan of care discussed with patient/family: Yes
[2019-01-13] MEDS: KEPPRA 1,000 MG in D5W 100 ML IV SCH (21:47)
[2019-01-13] MEDS: SODIUM CHLORIDE FLUSH SYRINGE 10 ML IV SCH (21:49)
[2019-01-13] MEDS ORDERED: LOVENOX SUB-Q ONE (21:54)
[2019-01-13] MEDS ORDERED: MAXIPIME/NS 1 GM/100 ML 1 GM/100 ML BAG IV ONE (21:54)
[2019-01-13] MEDS: MAXIPIME/NS 1 GM/100 ML 1 GM/100 ML BAG IV SCH (21:59)
[2019-01-13] MEDS ORDERED: LOVENOX SUB-Q SCH (22:00)
[2019-01-13] MEDS ORDERED: ROCEPHIN/NS 2 GM/100 ML 2 GM/100 ML BAG IV SCH (22:00)
[2019-01-14] MEDS: KCL 10MEQ/100ML 10 MEQ/100 ML BAG IV SCH ×5 (00:19→19:26)
[2019-01-14] MEDS: MAXIPIME/NS 1 GM/100 ML 1 GM/100 ML BAG IV SCH ×3 (05:58→22:59)
[2019-01-14] MEDS: PROTONIX 80 MG in NACL 0.9% 100 ML IV SCH ×2 (06:00→14:33)
[2019-01-14] MEDS ORDERED: KCL 10MEQ/100ML 30 MEQ/300 ML BAG IV ONE (06:43)
[2019-01-14] MEDS ORDERED: MAGNESIUM SULFATE 1 GM in NACL 0.9% 50 ML IV ONE (07:00)
[2019-01-14] MEDS ORDERED: MORPHINE ONE ×2 (07:29→14:44)
[2019-01-14] MEDS: MORPHINE IV PRN ×2 (07:40→14:50)
[2019-01-14 08:37] LABS: Basophils % (Auto) 0.3 % (0.0-1.8); Eosinophils % (Auto) 0.1 % (0.0-4.3); Hematocrit 30.6 % (30.3-42.9); Hemoglobin 10.5 gm/dl (10.1-14.3); Lymphocytes # (Auto) 0.9 K/mm3 (1.2-5.4); Lymphocytes % (Auto) 10.8 % (13.4-35.0); Mean Corpuscular HGB Conc 34 % (30-34); Mean Corpuscular Volume 85 fl (79-97); Monocytes # (Auto) 0.6 K/mm3 (0.0-0.8); Monocytes % (Auto) 7.4 % (0.0-7.3); Platelet Count 218 K/mm3 (140-440); Red Blood Count 3.61 M/mm3 (3.65-5.03); Red Cell Distribution Width 14.8 % (13.2-15.2)
[2019-01-14 09:15] LABS: BUN/Creatinine Ratio 14; Blood Urea Nitrogen 7 mg/dL (7-17); Calcium 7.4 mg/dL (8.4-10.2); Hemolysis Index 3
[2019-01-14] MEDS ORDERED: D50W (25GM) Syringe IV ONE ×2 (10:19→11:00)
[2019-01-14] MEDS ORDERED: KEPPRA 1,000 MG/NS 0.75% 100ML 1,000 MG/100 ML BAG IV ONE (10:31)
[2019-01-14] MEDS: KEPPRA 1,000 MG in D5W 100 ML IV SCH ×2 (10:37→22:59)
[2019-01-14] MEDS: SODIUM CHLORIDE FLUSH SYRINGE 10 ML IV SCH ×2 (10:46→23:01)
[2019-01-14] MEDS ORDERED: D5/0.45NS 1,000 ML IV ONE (10:50)
[2019-01-14] MEDS: D5/0.45NS 1,000 ML IV SCH ×2 (10:58→23:50)
[2019-01-14] MEDS: VANCOMYCIN/NS 1 GM/250 ML 1 GM/250 ML BAG IV SCH ×2 (11:30→23:00)
--- NOTE | 2019-01-14 11:35 | Progress Note ---
Assessment and Plan Assessment and plan: 38-year-old female with unknown past medical history presents to [facility] ED via [facility] transportation services with complaints of altered mental status, dehydration, coffee ground emesis, and tachycardia. She is not able to fully follow commands. She remains non-verbal. Pt has NG tube to LIS with small amount of dark brown drainage in collection canister. Possible Sepsis -Sinus tachycardia at 124bpm -Elevated respiratory rate -Leukocytosis, WBC 13.6 -Initiated sepsis protocol -Gentle hydration with IVF -IV cefepime and vancomycin -Consult ID Cholelithiasis -Seen on CT abdomen and pelvis -GI consulted Upper GI bleed -Patient noted to have coffee-ground -NPO -NG tube placed to LIS -Continue Protonix drip -GI consulted Acute hepatic encephalopathy -? Chronic liver disease -Hyperammonemia 157, elevated AST 46, elevated lipase 71 --Received lactulose -CT abdomen/pelvis showed normal liver -Continue to monitor hepatic function -GI consulted -Status epilepticus -?? Hx Seizure disorders -Witnessed seizure in ED -Termination of seizure with administration of IV Ativan -IV Ativan prn -IV Keppra 1gm BID -Seizure precautions initiated -Neuro checks -Neurology consulted Hypokalemia -Potassium on admission 2.8 -Replace and recheck Hypomagnesemia Replace and recheck Lactic acidosis -Lactic acid on admission 14.10 -on IV Abx -on IVF -continue to monitor DVT PPX -SCds only because coffee ground emesis prognosis guarded History Interval history: patient confused, cannot give history Hospitalist Physical - Physical exam Narrative exam: Gen: Not in acute distress, lying in bed HEENT: Normocephalic, atraumatic Neck: supple, no JVD Heart: S1 and S2 reg, no murmurs, rubs or gallop Lungs: Clear to auscultation, no wheeze Abd: soft, non tender, non distended, normal BS, Ext: No edema, no clubbing, no cyanosis Neuro: Lethargic, opens eyes, does not follow commands, moves all ext - Constitutional Vitals: Temp Pulse Resp BP Pulse Ox 98.7 F 118 H 22 116/83 99 01/14/19 07:52 01/14/19 07:00 01/14/19 07:40 01/14/19 07:00 01/14/19 07:00 Results - Labs CBC & Chem 7: 01/14/19 08:22 01/14/19 09:49 Labs: Laboratory Last Values WBC 8.0 K/mm3 (4.5-11.0) 01/14/19 08:22 RBC 3.61 M/mm3 (3.65-5.03) L 01/14/19 08:22 Hgb 10.5 gm/dl (10.1-14.3) 01/14/19 08:22 Hct 30.6 % (30.3-42.9) 01/14/19 08:22 MCV 85 fl (79-97) 01/14/19 08:22 MCH 29 pg (28-32) 01/14/19 08:22 MCHC 34 % (30-34) 01/14/19 08:22 RDW 14.8 % (13.2-15.2) 01/14/19 08:22 Plt Count 218 K/mm3 (140-440) 01/14/19 08:22 Lymph % (Auto) 10.8 % (13.4-35.0) L 01/14/19 08:22 [place] % (Auto) 7.4 % (0.0-7.3) H 01/14/19 08:22 Eos % (Auto) 0.1 % (0.0-4.3) 01/14/19 08:22 Baso % (Auto) 0.3 % (0.0-1.8) 01/14/19 08:22 Lymph # 0.9 K/mm3 (1.2-5.4) L 01/14/19 08:22 [place] # 0.6 K/mm3 (0.0-0.8) 01/14/19 08:22 Eos # 0.0 K/mm3 (0.0-0.4) 01/14/19 08:22 Baso # 0.0 K/mm3 (0.0-0.1) 01/14/19 08:22 Seg Neutrophils % 81.4 % (40.0-70.0) H 01/14/19 08:22 Seg Neutrophils # 6.5 K/mm3 (1.8-7.7) 01/14/19 08:22 PT 20.1 Sec. (12.2-14.9) H 01/13/19 17:44 INR 1.76 (0.87-1.13) H 01/13/19 17:44 APTT 29.2 Sec. (24.2-36.6) 01/13/19 17:44 POC ABG pH 7.371 (7.35-7.45) 01/13/19 18:03 POC ABG pO2 142 (80-105) H 01/13/19 18:03 POC ABG HCO3 10.6 (22-26 mml/L) 01/13/19 18:03 POC ABG Total CO2 11 (23-27mmol/L) 01/13/19 18:03 POC ABG O2 Sat 99 01/13/19 18:03 POC ABG Base Excess -15 ((-2) - (+3)mmol/L) 01/13/19 18:03 32 % 01/13/19 18:03 Sodium 144 mmol/L (137-145) 01/14/19 08:22 Potassium 2.3 mmol/L (3.6-5.0) L* D 01/14/19 09:49 Chloride 99.3 mmol/L (98-107) 01/14/19 08:22 Carbon Dioxide 21 mmol/L (22-30) L D 01/14/19 08:22 26 mmol/L 01/14/19 08:22 BUN 7 mg/dL (7-17) 01/14/19 08:22 0.5 mg/dL (0.7-1.2) L 01/14/19 08:22 Estimated GFR > 60 ml/min 01/14/19 08:22 14 % 01/14/19 08:22 Glucose 60 mg/dL (65-100) L 01/14/19 08:22 POC Glucose 73 (70-105) 01/14/19 10:17 Lactic Acid 2.50 mmol/L (0.7-2.0) H* 01/14/19 08:22 Calcium 7.4 mg/dL (8.4-10.2) L 01/14/19 08:22 Magnesium 1.50 mg/dL (1.7-2.3) L 01/14/19 05:19 1.30 mg/dL (0.1-1.2) H 01/13/19 15:43 AST 46 units/L (5-40) H 01/13/19 15:43 ALT 34 units/L (7-56) 01/13/19 15:43 86 units/L (35-129) 01/13/19 15:43 157.0 umol/L (25-60) H 01/13/19 15:43 296 units/L (91-180) H 01/13/19 15:43 133 units/L (30-135) 01/13/19 15:43 < 0.010 ng/mL (0.00-0.029) 01/14/19 05:19 6.8 g/dL (6.3-8.2) 01/13/19 15:43 3.7 g/dL (3.9-5) L 01/13/19 15:43 1.2 % 01/13/19 15:43 71 units/L (13-60) H 01/13/19 15:43 TSH 3.070 mlU/mL (0.270-4.200) 01/13/19 15:43 HCG, Quant < 2 mIU/mL (0-4) 01/13/19 17:44 Peri (Yellow) 01/13/19 16:23 Clear (Clear) 01/13/19 16:23 6.0 (5.0-7.0) 01/13/19 16:23 Ur Specific [place] 1.027 (1.003-1.030) 01/13/19 16:23 100 mg/dl mg/dL (Negative) 01/13/19 16:23 Neg mg/dL (Negative) 01/13/19 16:23 20 mg/dL (Negative) 01/13/19 16:23 Sm (Negative) 01/13/19 16:23 Neg (Negative) 01/13/19 16:23 Neg (Negative) 01/13/19 16:23 4.0 mg/dL (<2.0) 01/13/19 16:23 Ur Leukocyte Esterase Neg (Negative) 01/13/19 16:23 4.0 /HPF (0.0-6.0) 01/13/19 16:23 1.0 /HPF (0.0-6.0) 01/13/19 16:23 U Epithel Cells (Auto) 1.0 /HPF (0-13.0) 01/13/19 16:23 2+ /HPF 01/13/19 16:23 Salicylates < 0.3 mg/dL (2.8-20.0) L 01/13/19 15:43 Presumptive negative 01/13/19 16:23 Presumptive negative 01/13/19 16:23 Acetaminophen < 5.0 ug/mL (10.0-30.0) L 01/13/19 15:43 Ur Barbiturates Screen Presumptive negative 01/13/19 16:23 Ur Phencyclidine Scrn Presumptive negative 01/13/19 16:23 Ur Amphetamines Screen Presumptive negative 01/13/19 16:23 U Benzodiazepines Scrn Presumptive negative 01/13/19 16:23 Presumptive negative 01/13/19 16:23 U Marijuana (THC) Screen Presumptive negative 01/13/19 16:23 Disclamer 01/13/19 16:23 Plasma/Serum Alcohol < 0.01 % (0-0.07) 01/13/19 15:43 Active Medications - Current Medications Current Medications: Generic Name Dose Route Start Last Admin Trade Name Freq PRN Reason Stop Dose Admin Acetaminophen 650 mg 01/13/19 19:52 Tylenol DC Q4H PRN Pain, Mild (1-3)/ Fever>100.5 Albuterol 2.5 mg 01/13/19 19:42 Proventil IH Q3HRT PRN Shortness Of Breath Enoxaparin Sodium 40 mg 01/13/19 22:00 01/13/19 21:59 Lovenox SUB-Q 40 mg QDAY@2200 JOLIE Administration Cefepime HCl 1 gm in 100 mls @ 200 mls/hr 01/13/19 22:00 01/14/19 05:58 Maxipime/Ns 1 Gm/100 Ml IV 200 mls/hr Q8HR JOLIE Administration Protocol Levetiracetam 1,000 mg/ 110 mls @ 400 mls/hr 01/13/19 22:00 01/14/19 10:37 Dextrose IV 400 mls/hr Q12HR JOLIE Administration Pantoprazole Sodium 80 mg/ 100 mls @ 10 mls/hr 01/13/19 20:00 01/14/19 06:00 Sodium Chloride IV 8 mg/hr DIRECT JOLIE 10 mls/hr Administration 8 MG/HR Vancomycin HCl 1 gm in 250 mls @ 166.667 mls/hr 01/14/19 10:00 Vancomycin/Ns 1 Gm/250 Ml IV Q12HR JOLIE Dextrose/Sodium Chloride 1,000 mls @ 75 mls/hr 01/14/19 11:00 01/14/19 10:58 D5/0.45ns IV 75 mls/hr DIRECT JOLIE Administration Lorazepam 2 mg 01/13/19 19:48 Ativan IV Q4H PRN Agitation; seizure Morphine Sulfate 2 mg 01/13/19 19:42 01/14/19 07:40 Morphine IV 2 mg Q4H PRN Administration Pain, Moderate (4-6) Ondansetron HCl 4 mg 01/13/19 19:42 Zofran IV Q8H PRN Nausea And Vomiting Sodium Bicarbonate 50 meq 01/13/19 20:00 01/14/19 05:13 Sodium Bicarbonate 50meq Syringe IV 01/14/19 20:01 50 meq ONCE JOLIE Administration Sodium Chloride 10 ml 01/13/19 22:00 01/14/19 10:46 Sodium Chloride Flush Syringe 10 Ml IV 10 ml BID JOLIE Administration Sodium Chloride 10 ml 01/13/19 19:42 Sodium Chloride Flush Syringe 10 Ml IV PRN PRN LINE FLUSH
[2019-01-14] MEDS ORDERED: CEPHULAC PR SCH (12:30)
[2019-01-14] MEDS ORDERED: ATIVAN ONE (12:47)
[2019-01-14] MEDS: ATIVAN IV PRN (13:23)
[2019-01-14] MEDS ORDERED: MAXIPIME/NS 1 GM/100 ML 1 GM/100 ML BAG IV ONE (14:57)
--- NOTE | 2019-01-14 16:13 | Consultation ---
History of Present Illness - Reason for Consult Consult date: 01/14/19 Sepsis - History of Present Illness 38 yo F unknown PMHx presented to the ER with AMS via the [facility]. She remains non-responsive at the present time and as such the history is taken from the chart. She has been incarcerated for the past year, and she was [facility] from [facility] today and dropped off here. She was seen at the [facility] with concern for dehydration, lethargy, and no verbal response. She was found to be tachycardic and had coffee ground emesis. Since admission she remains much the same. Afebrile since admission. A CT head was normal, CXR normal. Abdominal CT showed cholelithiasis. Initially with leukocytosis which has since improved with hydration. She is currently receiving cefepime and vancomycin. BCx and UCx obtained yesterday have no growth to date. Past History Past Medical History: other (unable to obtain due to patient's mentation) Past Surgical History: Other (unable to obtain due to patient's mentation) Social history: other (incarcerated from July of this year, has been officially release from incarceration per EMS report) Family history: no significant family history, other (Unable to obtain due to patient's mentation) Medications and Allergies Allergies Allergy/AdvReac Type Severity Reaction Status Date / Time Unable to Assess Allergy Verified 01/14/19 12:37 Home Medications Medication Instructions Recorded Confirmed Last Taken Type No Known Home Medications [No 01/14/19 01/14/19 Unknown History Reported Home Medications] Active Meds: Active Medications Acetaminophen (Tylenol) 650 mg NE Q4H PRN PRN Reason: Pain, Mild (1-3)/ Fever>100.5 Albuterol (Proventil) 2.5 mg IH Q3HRT PRN PRN Reason: Shortness Of Breath Cefepime HCl (Maxipime/Ns 1 Gm/100 Ml) 1 gm in 100 mls @ 200 mls/hr IV Q8HR JOLIE; Protocol Last Admin: 01/14/19 14:56 Dose: 200 mls/hr Documented by: Levetiracetam 1,000 mg/ (Dextrose) 110 mls @ 400 mls/hr IV Q12HR JOLIE Last Admin: 01/14/19 10:37 Dose: 400 mls/hr Documented by: Pantoprazole Sodium 80 mg/ (Sodium Chloride) 100 mls @ 10 mls/hr IV DIRECT JOLIE Last Admin: 01/14/19 14:33 Dose: 8 mg/hr, 10 mls/hr Documented by: Vancomycin HCl (Vancomycin/Ns 1 Gm/250 Ml) 1 gm in 250 mls @ 166.667 mls/hr IV Q12HR JOLIE Last Admin: 01/14/19 11:30 Dose: 166.667 mls/hr Documented by: Dextrose/Sodium Chloride (D5/0.45ns) 1,000 mls @ 75 mls/hr IV DIRECT JOLIE Last Admin: 01/14/19 10:58 Dose: 75 mls/hr Documented by: Lactulose (Cephulac) 200 gm NE ONCE JOLIE Lorazepam (Ativan) 2 mg IV Q4H PRN PRN Reason: Agitation; seizure Last Admin: 01/14/19 13:23 Dose: 2 mg Documented by: Morphine Sulfate (Morphine) 2 mg IV Q4H PRN PRN Reason: Pain, Moderate (4-6) Last Admin: 01/14/19 14:50 Dose: 2 mg Documented by: Ondansetron HCl (Zofran) 4 mg IV Q8H PRN PRN Reason: Nausea And Vomiting Sodium Bicarbonate (Sodium Bicarbonate 50meq Syringe) 50 meq IV ONCE JOLIE Stop: 01/14/19 20:01 Last Admin: 01/14/19 05:13 Dose: 50 meq Documented by: Sodium Chloride (Sodium Chloride Flush Syringe 10 Ml) 10 ml IV BID JOLIE Last Admin: 01/14/19 10:46 Dose: 10 ml Documented by: Sodium Chloride (Sodium Chloride Flush Syringe 10 Ml) 10 ml IV PRN PRN PRN Reason: LINE FLUSH Review of Systems ROS unobtainable: due to mental status Physical Examination - Physical Exam Narrative exam: Constitutional: non-responsive Head, Ears, Nose: Normocephalic, atraumatic. External ears, nose normal Eyes: Conjunctivae/corneas clear. No icterus. No ptosis. Neck: Supple, no meningeal signs Oral: poor dentition, coffee emesis evident on teeth Cardiovascular: S1, S2 normal. Normal rhythm Respiratory: Good air entry, clear to auscultation bilaterally GI: Soft, non-tender; bowel sounds normal. No peritoneal signs Musculoskeletal: No pedal edema, Skin: No rash or abscess Hem/Lymphatic: No palpable cervical or supraclavicular nodes. No lymphangitis Psych: no agitation Neurological: Non-responsive. - Constitutional Vitals: Vital Signs Temp Pulse Resp BP Pulse Ox 98.7 F 93 H 15 94/49 100 01/14/19 07:52 01/14/19 14:00 01/14/19 14:00 01/14/19 14:00 01/14/19 14:00 Temperature -Last 24 Hours Temperature 98.7 F Results - Labs CBC & Chem 7: 01/14/19 08:22 01/14/19 09:49 Labs: Abnormal lab results 01/13/19 01/13/19 01/13/19 Range/Units 15:43 15:43 15:43 RBC (3.65-5.03) M/mm3 Lymph % (Auto) (13.4-35.0) % [place] % (Auto) (0.0-7.3) % Lymph # (1.2-5.4) K/mm3 Seg Neutrophils % (40.0-70.0) % PT (12.2-14.9) Sec. INR (0.87-1.13) POC ABG pO2 (80-105) Potassium 2.8 L* (3.6-5.0) mmol/L Carbon Dioxide 9 L* D (22-30) mmol/L BUN 23 H (7-17) mg/dL Creatinine (0.7-1.2) mg/dL Glucose 109 H (65-100) mg/dL Lactic Acid 14.10 H* (0.7-2.0) mmol/L Calcium 8.2 L (8.4-10.2) mg/dL Magnesium (1.7-2.3) mg/dL Total Bilirubin 1.30 H (0.1-1.2) mg/dL AST 46 H (5-40) units/L Ammonia 157.0 H (25-60) umol/L Lactate Dehydrogenase (91-180) units/L Albumin 3.7 L (3.9-5) g/dL Lipase (13-60) units/L Salicylates (2.8-20.0) mg/dL Acetaminophen (10.0-30.0) ug/mL 01/13/19 01/13/19 01/13/19 Range/Units 15:43 15:43 15:43 RBC (3.65-5.03) M/mm3 Lymph % (Auto) (13.4-35.0) % [place] % (Auto) (0.0-7.3) % Lymph # (1.2-5.4) K/mm3 Seg Neutrophils % (40.0-70.0) % PT (12.2-14.9) Sec. INR (0.87-1.13) POC ABG pO2 (80-105) Potassium (3.6-5.0) mmol/L Carbon Dioxide (22-30) mmol/L BUN (7-17) mg/dL Creatinine (0.7-1.2) mg/dL Glucose (65-100) mg/dL Lactic Acid (0.7-2.0) mmol/L Calcium (8.4-10.2) mg/dL Magnesium (1.7-2.3) mg/dL Total Bilirubin (0.1-1.2) mg/dL AST (5-40) units/L Ammonia (25-60) umol/L Lactate Dehydrogenase 296 H (91-180) units/L Albumin (3.9-5) g/dL Lipase 71 H (13-60) units/L Salicylates < 0.3 L (2.8-20.0) mg/dL Acetaminophen < 5.0 L (10.0-30.0) ug/mL 01/13/19 01/13/19 01/14/19 Range/Units 17:44 18:03 05:19 RBC (3.65-5.03) M/mm3 Lymph % (Auto) (13.4-35.0) % [place] % (Auto) (0.0-7.3) % Lymph # (1.2-5.4) K/mm3 Seg Neutrophils % (40.0-70.0) % PT 20.1 H (12.2-14.9) Sec. INR 1.76 H (0.87-1.13) POC ABG pO2 142 H (80-105) Potassium 3.0 L (3.6-5.0) mmol/L Carbon Dioxide (22-30) mmol/L BUN (7-17) mg/dL Creatinine (0.7-1.2) mg/dL Glucose (65-100) mg/dL Lactic Acid (0.7-2.0) mmol/L Calcium (8.4-10.2) mg/dL Magnesium 1.50 L (1.7-2.3) mg/dL Total Bilirubin (0.1-1.2) mg/dL AST (5-40) units/L Ammonia (25-60) umol/L Lactate Dehydrogenase (91-180) units/L Albumin (3.9-5) g/dL Lipase (13-60) units/L Salicylates (2.8-20.0) mg/dL Acetaminophen (10.0-30.0) ug/mL 01/14/19 01/14/19 01/14/19 Range/Units 08:22 08:22 08:22 RBC 3.61 L (3.65-5.03) M/mm3 Lymph % (Auto) 10.8 L (13.4-35.0) % [place] % (Auto) 7.4 H (0.0-7.3) % Lymph # 0.9 L (1.2-5.4) K/mm3 Seg Neutrophils % 81.4 H (40.0-70.0) % PT (12.2-14.9) Sec. INR (0.87-1.13) POC ABG pO2 (80-105) Potassium (3.6-5.0) mmol/L Carbon Dioxide 21 L D (22-30) mmol/L BUN (7-17) mg/dL Creatinine 0.5 L (0.7-1.2) mg/dL Glucose 60 L (65-100) mg/dL Lactic Acid 2.50 H* (0.7-2.0) mmol/L Calcium 7.4 L (8.4-10.2) mg/dL Magnesium (1.7-2.3) mg/dL Total Bilirubin (0.1-1.2) mg/dL AST (5-40) units/L Ammonia (25-60) umol/L Lactate Dehydrogenase (91-180) units/L Albumin (3.9-5) g/dL Lipase (13-60) units/L Salicylates (2.8-20.0) mg/dL Acetaminophen (10.0-30.0) ug/mL 01/14/19 Range/Units 09:49 RBC (3.65-5.03) M/mm3 Lymph % (Auto) (13.4-35.0) % [place] % (Auto) (0.0-7.3) % Lymph # (1.2-5.4) K/mm3 Seg Neutrophils % (40.0-70.0) % PT (12.2-14.9) Sec. INR (0.87-1.13) POC ABG pO2 (80-105) Potassium 2.3 L* D (3.6-5.0) mmol/L Carbon Dioxide (22-30) mmol/L BUN (7-17) mg/dL Creatinine (0.7-1.2) mg/dL Glucose (65-100) mg/dL Lactic Acid (0.7-2.0) mmol/L Calcium (8.4-10.2) mg/dL Magnesium (1.7-2.3) mg/dL Total Bilirubin (0.1-1.2) mg/dL AST (5-40) units/L Ammonia (25-60) umol/L Lactate Dehydrogenase (91-180) units/L Albumin (3.9-5) g/dL Lipase (13-60) units/L Salicylates (2.8-20.0) mg/dL Acetaminophen (10.0-30.0) ug/mL Assessment and Plan Cultures: 01/13 BCx NGTD 01/13 UCx NGTD A/P: 38 yo F unknown PMHx admitted non-responsive from skilled nursing 1) Sepsis unknown etiology - tachycardia and leukocytosis on admission. Unclear etiology, currently pending cultures. Would follow them up. Increase cefepime to 2g q8h. Continue vancomycin. Aside from mentation no obvious abnormality. Normal respiration. 2) Coffee ground emesis - concern for UGIB; potential cause for SIRS criteria but can't rule out infection at this time. 3) AMS - non-verbal, normal imaging. Likely secondary to electrolyte and volume derangements 4) Volume depletion 5) hypokalemia Recs Daily CBC with diff continue vancomycin increase cefepime to 2g q8h Thank you for involving us in Ms. French's care. We will continue to follow with you. Laya Holt MD [facility] ([facility] C: [phone] O: [phone] F: [phone]
[2019-01-14 16:55] LABS: Hematocrit 32.4 % (30.3-42.9); Hemoglobin 10.8 gm/dl (10.1-14.3)
[2019-01-14 17:20] LABS: Alanine Aminotransferase 41 units/L (7-56); Albumin 3.1 g/dL (3.9-5); BUN/Creatinine Ratio 10; Blood Urea Nitrogen 4 mg/dL (7-17); Calcium 7.2 mg/dL (8.4-10.2); Hemolysis Index 8
[2019-01-14] MEDS ORDERED: KCL 10MEQ/100ML 10 MEQ/100 ML BAG IV ONE (19:00)
[2019-01-14] MEDS ORDERED: MAGNESIUM SULFATE 3 GM in NACL 0.9% 100 ML IV ONE (19:30)
--- NOTE | 2019-01-14 21:04 | Electroencephalogram Report ---
Electroencephalogram EEG Date of exam: 01/14/19 History: altered mental status, seizure in ER Description: This digital portable EEG shows tachycardia but is too noisy to interpret. Will try again tomorrow once in hospital room to lessen noise. Interpretation: EEG is too noisy (from room noise in ER possibly) to interpret. Will try again in a different room tomorrow.
--- NOTE | 2019-01-14 21:08 | Consultation ---
History of Present Illness Consult date: 01/14/19 Requesting physician: FREDERICK GASPAR Reason for Consult: altered mental status, seizures Chief complaint: altered mental status, seizures History of present illness: This 38 year old female was [facility] since July for altered mental status, seizures. Had lethargy, possible dehydration, decreased speech, coffee ground emesis, possible seizure per notes. Witnessed GTC in ER. Denies headache and dizziness (via Lizzie, Boiler Maker and torres martinez speaker interpreting). NH3 was 157 on admission, now 45. Lipase was 71, now 27. Poor historian even in Slovak, lethargic. CT brain shows mild to moderate cerebral atrophy. PMH: Medical illnesses: cannot obtain Surgeries: none SH: denies tobacco, cannot obtain fully, says was working but can't tell us job. FH: cannot obtain ROS: cannot obtain General physical exam: General Appearance: well developed but overweight late 30's female, lethargic, seen with Lizzie interpreting as above. HEENT: chapped lips, AT/NC, no bruits. Neck: supple, no bruits. Heart: no murmur or extra sounds. Extremities: 2+ left DP, can't feel on right, no edema. Neurologic Exam: Mental Status: January, not 2017, can't do 3 of 3 objects task, gives Pres as Ross and can't correct with Gordo ___. Gives one subtraction then cannot continue but gives 5+7=12. Spells WORLD in Slovak forwards but can't backwards. Abstracts ok but slow responses, poor right-left task, names pen and its point in Slovak. Cranial Nerves: freeman full to threat, no papilledema, PERRL, EOMs full with some gaze-evoked nystagmus (has been getting Ativan for agitation), sensory intact, no facial weakness, Almeida ML, gags positive, shrugs are 5, tongue ML. Cerebellar: finger to nose dysmetric X 2 without tremor, heel to rossi intact. Sensory: intact to primary and to DSS. Motor UEs: no drift or pronation, tax auditor are 4+, Darrell ok. Motor LEs: IPs are 5, decreased left leg lift, left quad 3+, anterior tibials poor (apraxic), gastrocs are 4+. Darrell are ok. Reflexes: slightly positive right palmomental, snout and jaw jerk are negative. Triceps, biceps and brachioradialis are 2. Andrea's are negative. Knee jerks are 2+, ankle jerks are 0 becoming trace right and remaining 0 left with reinforcement. Toes are downgoing bilaterally to Babinski testing. Past History Past Medical History: other (unable to obtain due to patient's mentation) Past Surgical History: Other (unable to obtain due to patient's mentation) Social history: other (incarcerated from July of this year, has been officially release from incarceration per EMS report) Family history: no significant family history, other (Unable to obtain due to patient's mentation) Medications and Allergies Allergies Allergy/AdvReac Type Severity Reaction Status Date / Time Unable to Assess Allergy Verified 01/14/19 12:37 Home Medications Medication Instructions Recorded Confirmed Last Taken Type No Known Home Medications [No 01/14/19 01/14/19 Unknown History Reported Home Medications] Active Meds: Active Medications Acetaminophen (Tylenol) 650 mg [place] Q4H PRN PRN Reason: Pain, Mild (1-3)/ Fever>100.5 Albuterol (Proventil) 2.5 mg IH Q3HRT PRN PRN Reason: Shortness Of Breath Cefepime HCl (Maxipime/Ns 1 Gm/100 Ml) 1 gm in 100 mls @ 200 mls/hr IV Q8HR JOLIE; Protocol Last Admin: 01/14/19 14:56 Dose: 200 mls/hr Documented by: Levetiracetam 1,000 mg/ (Dextrose) 110 mls @ 400 mls/hr IV Q12HR JOLIE Last Admin: 01/14/19 10:37 Dose: 400 mls/hr Documented by: Pantoprazole Sodium 80 mg/ (Sodium Chloride) 100 mls @ 10 mls/hr IV DIRECT JOLIE Last Admin: 01/14/19 14:33 Dose: 8 mg/hr, 10 mls/hr Documented by: Vancomycin HCl (Vancomycin/Ns 1 Gm/250 Ml) 1 gm in 250 mls @ 166.667 mls/hr IV Q12HR JOLIE Last Admin: 01/14/19 11:30 Dose: 166.667 mls/hr Documented by: Dextrose/Sodium Chloride (D5/0.45ns) 1,000 mls @ 75 mls/hr IV DIRECT JOLIE Last Admin: 01/14/19 10:58 Dose: 75 mls/hr Documented by: Potassium Chloride (Kcl 10meq/100ml) 10 meq in 100 mls @ 100 mls/hr IV Q1H JOLIE Stop: 01/14/19 23:59 Last Admin: 01/14/19 19:26 Dose: 100 mls/hr Documented by: Magnesium Sulfate 3 gm/ Sodium (Chloride) 106 mls @ 35.333 mls/hr IV ONCE ONE Stop: 01/14/19 22:29 Last Admin: 01/14/19 19:25 Dose: 35.333 mls/hr Documented by: Lactulose (Cephulac) 200 gm [place] ONCE JOLIE Lorazepam (Ativan) 2 mg IV Q4H PRN PRN Reason: Agitation; seizure Last Admin: 01/14/19 13:23 Dose: 2 mg Documented by: Morphine Sulfate (Morphine) 2 mg IV Q4H PRN PRN Reason: Pain, Moderate (4-6) Last Admin: 01/14/19 14:50 Dose: 2 mg Documented by: Ondansetron HCl (Zofran) 4 mg IV Q8H PRN PRN Reason: Nausea And Vomiting Sodium Chloride (Sodium Chloride Flush Syringe 10 Ml) 10 ml IV BID JOLIE Last Admin: 01/14/19 10:46 Dose: 10 ml Documented by: Sodium Chloride (Sodium Chloride Flush Syringe 10 Ml) 10 ml IV PRN PRN PRN Reason: LINE FLUSH Physical Examination - Vital Signs Vital Signs: Vital Signs Pulse Resp 149 H 31 H 01/13/19 15:30 01/13/19 15:30 Results - Laboratory Findings CBC and BMP: 01/14/19 16:44 01/14/19 16:44 Abnormal Lab Findings: Abnormal Labs 01/13/19 01/13/19 01/13/19 15:40 15:43 15:43 WBC 13.6 H RBC Lymph % (Auto) 5.4 L [place] % (Auto) Lymph # 0.7 L Seg Neutrophils % 88.6 H Seg Neutrophils # 12.0 H PT INR POC ABG pO2 Potassium 2.8 L* Carbon Dioxide 9 L* D BUN 23 H Creatinine Glucose 109 H POC Glucose 109 H Lactic Acid Calcium 8.2 L Magnesium Total Bilirubin 1.30 H AST 46 H Ammonia Lactate Dehydrogenase Total Protein Albumin 3.7 L Lipase Salicylates Acetaminophen 01/13/19 01/13/19 01/13/19 15:43 15:43 15:43 WBC RBC Lymph % (Auto) [place] % (Auto) Lymph # Seg Neutrophils % Seg Neutrophils # PT INR POC ABG pO2 Potassium Carbon Dioxide BUN Creatinine Glucose POC Glucose Lactic Acid 14.10 H* Calcium Magnesium Total Bilirubin AST Ammonia 157.0 H Lactate Dehydrogenase Total Protein Albumin Lipase Salicylates < 0.3 L Acetaminophen 01/13/19 01/13/19 01/13/19 15:43 15:43 17:44 WBC RBC Lymph % (Auto) [place] % (Auto) Lymph # Seg Neutrophils % Seg Neutrophils # PT 20.1 H INR 1.76 H POC ABG pO2 Potassium Carbon Dioxide BUN Creatinine Glucose POC Glucose Lactic Acid Calcium Magnesium Total Bilirubin AST Ammonia Lactate Dehydrogenase 296 H Total Protein Albumin Lipase 71 H Salicylates Acetaminophen < 5.0 L 01/13/19 01/14/19 01/14/19 18:03 05:19 08:22 WBC RBC 3.61 L Lymph % (Auto) 10.8 L [place] % (Auto) 7.4 H Lymph # 0.9 L Seg Neutrophils % 81.4 H Seg Neutrophils # PT INR POC ABG pO2 142 H Potassium 3.0 L Carbon Dioxide BUN Creatinine Glucose POC Glucose Lactic Acid Calcium Magnesium 1.50 L Total Bilirubin AST Ammonia Lactate Dehydrogenase Total Protein Albumin Lipase Salicylates Acetaminophen 01/14/19 01/14/19 01/14/19 08:22 08:22 09:49 WBC RBC Lymph % (Auto) [place] % (Auto) Lymph # Seg Neutrophils % Seg Neutrophils # PT INR POC ABG pO2 Potassium 2.3 L* D Carbon Dioxide 21 L D BUN Creatinine 0.5 L Glucose 60 L POC Glucose Lactic Acid 2.50 H* Calcium 7.4 L Magnesium Total Bilirubin AST Ammonia Lactate Dehydrogenase Total Protein Albumin Lipase Salicylates Acetaminophen 01/14/19 01/14/19 16:35 16:44 WBC RBC Lymph % (Auto) [place] % (Auto) Lymph # Seg Neutrophils % Seg Neutrophils # PT INR POC ABG pO2 Potassium 2.2 L* Carbon Dioxide BUN 4 L Creatinine 0.4 L Glucose POC Glucose 112 H Lactic Acid Calcium 7.2 L Magnesium Total Bilirubin AST 74 H Ammonia Lactate Dehydrogenase Total Protein 5.8 L Albumin 3.1 L Lipase Salicylates Acetaminophen Assessment and Plan Impression: 1. 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 EEG (done but too noisy, will repeat on floor). 2. Continue levetiracetam. 3. Expect mentation to improve with longer time with normal ammonia, and treatment of dehydration. 45 min critical care time spent including review of multiple CT images. Thanks for an interesting consultation on this unfortunate late 30's female.
[2019-01-14 23:23] LABS: Hematocrit 29.8 % (30.3-42.9); Hemoglobin 10.6 gm/dl (10.1-14.3)
[2019-01-15] MEDS: KCL 10MEQ/100ML 10 MEQ/100 ML BAG IV SCH ×14 (01:43→21:04)
[2019-01-15] MEDS: PROTONIX 80 MG in NACL 0.9% 100 ML IV SCH ×3 (01:47→22:12)
[2019-01-15 05:07] LABS: Hemoglobin 10.6 gm/dl (10.1-14.3); Mean Corpuscular HGB Conc 36 % (30-34); Mean Corpuscular Volume 85 fl (79-97); Platelet Count 195 K/mm3 (140-440); Red Blood Count 3.51 M/mm3 (3.65-5.03)
[2019-01-15 05:18] LABS: INR 1.48 (0.87-1.13)
[2019-01-15 05:24] LABS: Alanine Aminotransferase 44 units/L (7-56); Albumin 3.3 g/dL (3.9-5); BUN/Creatinine Ratio 10; Blood Urea Nitrogen 3 mg/dL (7-17); Calcium 7.4 mg/dL (8.4-10.2); Hemolysis Index 13
--- NOTE | 2019-01-15 08:50 | Progress Note ---
Assessment and Plan Assessment and plan: 38-year-old female with unknown past medical history presents to [facility] ED via [facility] transportation services with complaints of altered mental status, dehydration, coffee ground emesis, and tachycardia. Pt has NG tube to LIS with small amount of dark brown drainage in collection canister. Sepsis -Sinus tachycardia -Elevated respiratory rate -Leukocytosis, WBC 13.6 -Initiated sepsis protocol -Gentle hydration with IVF -IV cefepime and vancomycin -Consult ID Cholelithiasis -Seen on CT abdomen and pelvis -GI consulted Upper GI bleed -Patient noted to have coffee-ground -NPO -NG tube placed to LIS -Continue Protonix drip -GI consulted H/H stable. No need for EGD yet Acute hepatic encephalopathy -? Chronic liver disease -Hyperammonemia , now resolved --Received lactulose -CT abdomen/pelvis showed normal liver -Continue to monitor hepatic function -GI consulted -Status epilepticus -?? Hx Seizure disorders -Witnessed seizure in ED -Termination of seizure with administration of IV Ativan -IV Ativan prn -IV Keppra 1gm BID -Seizure precautions initiated -Neuro checks -Neurology consulted Hypokalemia -Potassium on admission 2.8 -Still low after multiple doses of iv Potassium Hypomagnesemia Replace and recheck Lactic acidosis -Lactic acid on admission 14.10 -on IV Abx -on IVF -continue to monitor DVT PPX -SCds only because coffee ground emesis prognosis guarded History Interval history: Patient less confused, Coffee ground emesis subsiding Hospitalist Physical - Physical exam Narrative exam: Gen: Not in acute distress, lying in bed HEENT: Normocephalic, atraumatic Neck: supple, no JVD Heart: S1 and S2 reg, no murmurs, rubs or gallop Lungs: Clear to auscultation, no wheeze Abd: soft, non tender, non distended, normal BS, Ext: No edema, no clubbing, no cyanosis Neuro: Lethargic, opens eyes, follows commands, less confused. moves all ext - Constitutional Vitals: Temp Pulse Resp BP Pulse Ox 97.6 F 92 H 25 H 94/51 99 01/15/19 08:20 01/15/19 07:41 01/15/19 07:41 01/15/19 07:41 01/15/19 07:41 Results - Labs CBC & Chem 7: 01/15/19 04:18 01/15/19 15:12 Labs: Laboratory Last Values WBC 6.0 K/mm3 (4.5-11.0) 01/15/19 04:18 RBC 3.51 M/mm3 (3.65-5.03) L 01/15/19 04:18 Hgb 10.6 gm/dl (10.1-14.3) 01/15/19 04:18 Hct 30.0 % (30.3-42.9) L 01/15/19 04:18 MCV 85 fl (79-97) 01/15/19 04:18 MCH 30 pg (28-32) 01/15/19 04:18 MCHC 36 % (30-34) H 01/15/19 04:18 RDW 15.0 % (13.2-15.2) 01/15/19 04:18 Plt Count 195 K/mm3 (140-440) 01/15/19 04:18 Lymph % (Auto) 10.8 % (13.4-35.0) L 01/14/19 08:22 [place] % (Auto) 7.4 % (0.0-7.3) H 01/14/19 08:22 Eos % (Auto) 0.1 % (0.0-4.3) 01/14/19 08:22 Baso % (Auto) 0.3 % (0.0-1.8) 01/14/19 08:22 Lymph # 0.9 K/mm3 (1.2-5.4) L 01/14/19 08:22 [place] # 0.6 K/mm3 (0.0-0.8) 01/14/19 08:22 Eos # 0.0 K/mm3 (0.0-0.4) 01/14/19 08:22 Baso # 0.0 K/mm3 (0.0-0.1) 01/14/19 08:22 Seg Neutrophils % 81.4 % (40.0-70.0) H 01/14/19 08:22 Seg Neutrophils # 6.5 K/mm3 (1.8-7.7) 01/14/19 08:22 PT 17.6 Sec. (12.2-14.9) H 01/15/19 04:18 INR 1.48 (0.87-1.13) H 01/15/19 04:18 APTT 29.2 Sec. (24.2-36.6) 01/13/19 17:44 POC ABG pH 7.371 (7.35-7.45) 01/13/19 18:03 POC ABG pO2 142 (80-105) H 01/13/19 18:03 POC ABG HCO3 10.6 (22-26 mml/L) 01/13/19 18:03 POC ABG Total CO2 11 (23-27mmol/L) 01/13/19 18:03 POC ABG O2 Sat 99 01/13/19 18:03 POC ABG Base Excess -15 ((-2) - (+3)mmol/L) 01/13/19 18:03 32 % 01/13/19 18:03 Sodium 137 mmol/L (137-145) 01/15/19 04:18 Potassium 2.6 mmol/L (3.6-5.0) L* 01/15/19 04:18 Chloride 94.9 mmol/L (98-107) L 01/15/19 04:18 Carbon Dioxide 26 mmol/L (22-30) 01/15/19 04:18 19 mmol/L 01/15/19 04:18 BUN 3 mg/dL (7-17) L 01/15/19 04:18 0.3 mg/dL (0.7-1.2) L 01/15/19 04:18 Estimated GFR > 60 ml/min 01/15/19 04:18 10 % 01/15/19 04:18 Glucose 104 mg/dL (65-100) H 01/15/19 04:18 POC Glucose 112 (70-105) H 01/14/19 16:35 Lactic Acid 1.90 mmol/L (0.7-2.0) 01/14/19 16:44 Calcium 7.4 mg/dL (8.4-10.2) L 01/15/19 04:18 Magnesium 2.10 mg/dL (1.7-2.3) 01/15/19 08:10 1.50 mg/dL (0.1-1.2) H 01/15/19 04:18 AST 73 units/L (5-40) H 01/15/19 04:18 ALT 44 units/L (7-56) 01/15/19 04:18 76 units/L (35-129) 01/15/19 04:18 30.0 umol/L (25-60) 01/15/19 04:18 296 units/L (91-180) H 01/13/19 15:43 133 units/L (30-135) 01/13/19 15:43 < 0.010 ng/mL (0.00-0.029) 01/14/19 05:19 5.4 g/dL (6.3-8.2) L 01/15/19 04:18 3.3 g/dL (3.9-5) L 01/15/19 04:18 1.6 % 01/15/19 04:18 27 units/L (13-60) 01/14/19 10:43 TSH 3.070 mlU/mL (0.270-4.200) 01/13/19 15:43 HCG, Quant < 2 mIU/mL (0-4) 01/13/19 17:44 Peri (Yellow) 01/13/19 16:23 Clear (Clear) 01/13/19 16:23 6.0 (5.0-7.0) 01/13/19 16:23 Ur Specific [place] 1.027 (1.003-1.030) 01/13/19 16:23 100 mg/dl mg/dL (Negative) 01/13/19 16:23 Neg mg/dL (Negative) 01/13/19 16:23 20 mg/dL (Negative) 01/13/19 16:23 Sm (Negative) 01/13/19 16:23 Neg (Negative) 01/13/19 16:23 Neg (Negative) 01/13/19 16:23 4.0 mg/dL (<2.0) 01/13/19 16:23 Ur Leukocyte Esterase Neg (Negative) 01/13/19 16:23 4.0 /HPF (0.0-6.0) 01/13/19 16:23 1.0 /HPF (0.0-6.0) 01/13/19 16:23 U Epithel Cells (Auto) 1.0 /HPF (0-13.0) 01/13/19 16:23 2+ /HPF 01/13/19 16:23 Salicylates < 0.3 mg/dL (2.8-20.0) L 01/13/19 15:43 Presumptive negative 01/13/19 16:23 Presumptive negative 01/13/19 16:23 Acetaminophen < 5.0 ug/mL (10.0-30.0) L 01/13/19 15:43 Ur Barbiturates Screen Presumptive negative 01/13/19 16:23 Ur Phencyclidine Scrn Presumptive negative 01/13/19 16:23 Ur Amphetamines Screen Presumptive negative 01/13/19 16:23 U Benzodiazepines Scrn Presumptive negative 01/13/19 16:23 Presumptive negative 01/13/19 16:23 U Marijuana (THC) Screen Presumptive negative 01/13/19 16:23 Disclamer 01/13/19 16:23 Plasma/Serum Alcohol < 0.01 % (0-0.07) 01/13/19 15:43 Active Medications - Current Medications Current Medications: Generic Name Dose Route Start Last Admin Trade Name Freq PRN Reason Stop Dose Admin Acetaminophen 650 mg 01/13/19 19:52 Tylenol HI Q4H PRN Pain, Mild (1-3)/ Fever>100.5 Albuterol 2.5 mg 01/13/19 19:42 Proventil IH Q3HRT PRN Shortness Of Breath Levetiracetam 1,000 mg/ 110 mls @ 400 mls/hr 01/13/19 22:00 01/14/19 22:59 Dextrose IV 400 mls/hr Q12HR JOLIE Administration Pantoprazole Sodium 80 mg/ 100 mls @ 10 mls/hr 01/13/19 20:00 01/15/19 01:47 Sodium Chloride IV 8 mg/hr DIRECT JOLIE 10 mls/hr Administration 8 MG/HR Vancomycin HCl 1 gm in 250 mls @ 166.667 mls/hr 01/14/19 10:00 01/14/19 23:00 Vancomycin/Ns 1 Gm/250 Ml IV 166.667 mls/hr Q12HR JOLIE Administration Dextrose/Sodium Chloride 1,000 mls @ 75 mls/hr 01/14/19 11:00 01/14/19 23:50 D5/0.45ns IV 75 mls/hr DIRECT JOLIE Administration Cefepime HCl 2 gm in 100 mls @ 200 mls/hr 01/15/19 14:00 Maxipime/Ns 2 Gm/100 Ml IV Q8HR JOLIE Potassium Chloride 10 meq in 100 mls @ 100 mls/hr 01/15/19 09:00 Kcl 10meq/100ml IV 01/15/19 12:59 Q1H JOLIE Lorazepam 2 mg 01/13/19 19:48 01/14/19 13:23 Ativan IV 2 mg Q4H PRN Administration Agitation; seizure Morphine Sulfate 2 mg 01/13/19 19:42 01/14/19 14:50 Morphine IV 2 mg Q4H PRN Administration Pain, Moderate (4-6) Ondansetron HCl 4 mg 01/13/19 19:42 Zofran IV Q8H PRN Nausea And Vomiting Sodium Chloride 10 ml 01/13/19 22:00 01/14/19 23:01 Sodium Chloride Flush Syringe 10 Ml IV 10 ml BID JOLIE Administration Sodium Chloride 10 ml 01/13/19 19:42 Sodium Chloride Flush Syringe 10 Ml IV PRN PRN LINE FLUSH
[2019-01-15] MEDS: VANCOMYCIN/NS 1 GM/250 ML 1 GM/250 ML BAG IV SCH ×2 (09:28→21:40)
[2019-01-15] MEDS: SODIUM CHLORIDE FLUSH SYRINGE 10 ML IV SCH ×2 (09:29→21:07)
[2019-01-15] MEDS: KEPPRA 1,000 MG in D5W 100 ML IV SCH ×2 (09:47→21:40)
--- NOTE | 2019-01-15 12:50 | Progress Note ---
Assessment and Plan Cultures: 01/13 BCx NGTD 01/13 UCx NGTD A/P: 38 yo F unknown PMHx [facility] 1) Sepsis unknown etiology - tachycardia and leukocytosis on admission. Unclear etiology, currently pending cultures. Would follow them up. Increase cefepime to 2g q8h. Continue vancomycin. Aside from mentation no obvious abnormality. Normal respiration. Mostly likely due to seizures, will follow BCx to 48 hours and consider discontinuing antibiotics if negative. 2) Coffee ground emesis - concern for UGIB; potential cause for SIRS criteria but can't rule out infection at this time. 3) AMS - non-verbal, normal imaging. Likely secondary to electrolyte and volume derangements 4) Volume depletion 5) hypokalemia 6) seizures Recs Daily CBC with diff continue vancomycin continue cefepime to 2g q8h Follow cultures Thank you for involving us in Ms. French's care. We will continue to follow with you. Laya Holt MD [facility] ([facility]) C: [phone] O: [phone] F: [phone] Subjective Date of service: 01/15/19 Interval history: Asleep this morning on rounds but easily rousable, however non-verbal to questions. Mostly groans. Was noted to have a generalized tonic-clonic in the ER. Objective - Exam Narrative Exam: Constitutional: rousable, non-verbal. Groans Head, Ears, Nose: Normocephalic, atraumatic. External ears, nose normal Eyes: Conjunctivae/corneas clear. No icterus. No ptosis. Neck: Supple, no meningeal signs Oral: poor dentition, coffee emesis evident on teeth Cardiovascular: S1, S2 normal. Normal rhythm Respiratory: Good air entry, clear to auscultation bilaterally GI: Soft, non-tender; bowel sounds normal. No peritoneal signs Musculoskeletal: No pedal edema, Skin: No rash or abscess Hem/Lymphatic: No palpable cervical or supraclavicular nodes. No lymphangitis Psych: no agitation Neurological: Disoriented, altered - Constitutional Vitals: Vital Signs Temp Pulse Resp BP Pulse Ox 97.5 F L 96 H 22 95/65 99 01/15/19 12:00 01/15/19 12:21 01/15/19 12:21 01/15/19 12:21 01/15/19 12:21 Temperature -Last 24 Hours Temperature 97.5 F Temperature 97.6 F Temperature 97.6 F Temperature 97.6 F Temperature 97.7 F Temperature 98.1 F Temperature 98.1 F Temperature 98.7 F - Labs CBC & Chem 7: 01/15/19 04:18 01/15/19 08:10 Labs: Abnormal lab results 01/14/19 01/14/19 01/14/19 Range/Units 05:19 08:22 08:22 RBC 3.61 L (3.65-5.03) M/mm3 Hct (30.3-42.9) % MCHC (30-34) % Lymph % (Auto) 10.8 L (13.4-35.0) % [place] % (Auto) 7.4 H (0.0-7.3) % Lymph # 0.9 L (1.2-5.4) K/mm3 Seg Neutrophils % 81.4 H (40.0-70.0) % PT (12.2-14.9) Sec. INR (0.87-1.13) Potassium 3.0 L (3.6-5.0) mmol/L Chloride (98-107) mmol/L Carbon Dioxide 21 L D (22-30) mmol/L BUN (7-17) mg/dL Creatinine 0.5 L (0.7-1.2) mg/dL Glucose 60 L (65-100) mg/dL POC Glucose (70-105) Calcium 7.4 L (8.4-10.2) mg/dL Magnesium 1.50 L (1.7-2.3) mg/dL Total Bilirubin (0.1-1.2) mg/dL AST (5-40) units/L Total Protein (6.3-8.2) g/dL Albumin (3.9-5) g/dL 01/14/19 01/14/19 01/14/19 Range/Units 16:35 16:44 22:51 RBC (3.65-5.03) M/mm3 Hct 29.8 L (30.3-42.9) % MCHC (30-34) % Lymph % (Auto) (13.4-35.0) % [place] % (Auto) (0.0-7.3) % Lymph # (1.2-5.4) K/mm3 Seg Neutrophils % (40.0-70.0) % PT (12.2-14.9) Sec. INR (0.87-1.13) Potassium 2.2 L* (3.6-5.0) mmol/L Chloride (98-107) mmol/L Carbon Dioxide (22-30) mmol/L BUN 4 L (7-17) mg/dL Creatinine 0.4 L (0.7-1.2) mg/dL Glucose (65-100) mg/dL POC Glucose 112 H (70-105) Calcium 7.2 L (8.4-10.2) mg/dL Magnesium (1.7-2.3) mg/dL Total Bilirubin (0.1-1.2) mg/dL AST 74 H (5-40) units/L Total Protein 5.8 L (6.3-8.2) g/dL Albumin 3.1 L (3.9-5) g/dL 01/15/19 01/15/19 01/15/19 Range/Units 04:18 04:18 04:18 RBC 3.51 L (3.65-5.03) M/mm3 Hct 30.0 L (30.3-42.9) % MCHC 36 H (30-34) % Lymph % (Auto) (13.4-35.0) % [place] % (Auto) (0.0-7.3) % Lymph # (1.2-5.4) K/mm3 Seg Neutrophils % (40.0-70.0) % PT 17.6 H (12.2-14.9) Sec. INR 1.48 H (0.87-1.13) Potassium 2.6 L* (3.6-5.0) mmol/L Chloride 94.9 L (98-107) mmol/L Carbon Dioxide (22-30) mmol/L BUN 3 L (7-17) mg/dL Creatinine 0.3 L (0.7-1.2) mg/dL Glucose 104 H (65-100) mg/dL POC Glucose (70-105) Calcium 7.4 L (8.4-10.2) mg/dL Magnesium (1.7-2.3) mg/dL Total Bilirubin 1.50 H (0.1-1.2) mg/dL AST 73 H (5-40) units/L Total Protein 5.4 L (6.3-8.2) g/dL Albumin 3.3 L (3.9-5) g/dL 01/15/19 Range/Units 08:10 RBC (3.65-5.03) M/mm3 Hct (30.3-42.9) % MCHC (30-34) % Lymph % (Auto) (13.4-35.0) % [place] % (Auto) (0.0-7.3) % Lymph # (1.2-5.4) K/mm3 Seg Neutrophils % (40.0-70.0) % PT (12.2-14.9) Sec. INR (0.87-1.13) Potassium 2.5 L* (3.6-5.0) mmol/L Chloride (98-107) mmol/L Carbon Dioxide (22-30) mmol/L BUN (7-17) mg/dL Creatinine (0.7-1.2) mg/dL Glucose (65-100) mg/dL POC Glucose (70-105) Calcium (8.4-10.2) mg/dL Magnesium (1.7-2.3) mg/dL Total Bilirubin (0.1-1.2) mg/dL AST (5-40) units/L Total Protein (6.3-8.2) g/dL Albumin (3.9-5) g/dL
[2019-01-15] MEDS: MAXIPIME/NS 2 GM/100 ML 2 GM/100 ML BAG IV SCH ×2 (13:11→21:39)
--- NOTE | 2019-01-15 15:52 | Consultation ---
History of Present Illness - Reason for Consult Consult date: 01/15/19 GI bleed Requesting physician: BERENICE CLARK - History of Present Illness 38 yo female, nonverbal at present, who was discharged from long-term and is hospital, with altered mental status. There are reports of coffee ground type material vomited at [facility]. No reports of abd pain, or any other information. On admission, elevated lactic acid and NH3, which corrected with hydration. NGT placed with dark return, not clearly blood. Overnight, pt received IVFs, and labs better, and apparently improved mental status. GI consult obtained due to reported coffee ground emesis. Meds reviewed. Past History Past Medical History: other (unable to obtain due to patient's mentation) Past Surgical History: Other (unable to obtain due to patient's mentation) Social history: other (incarcerated from July of this year, has been officially release from incarceration per EMS report) Family history: no significant family history, other (Unable to obtain due to patient's mentation) Medications and Allergies Allergies Allergy/AdvReac Type Severity Reaction Status Date / Time Unable to Assess Allergy Verified 01/14/19 12:37 Home Medications Medication Instructions Recorded Confirmed Last Taken Type No Known Home Medications [No 01/14/19 01/14/19 Unknown History Reported Home Medications] Active Meds: Active Medications Acetaminophen (Tylenol) 650 mg WI Q4H PRN PRN Reason: Pain, Mild (1-3)/ Fever>100.5 Albuterol (Proventil) 2.5 mg IH Q3HRT PRN PRN Reason: Shortness Of Breath Levetiracetam 1,000 mg/ (Dextrose) 110 mls @ 400 mls/hr IV Q12HR JOLIE Last Admin: 01/15/19 09:47 Dose: 400 mls/hr Documented by: Pantoprazole Sodium 80 mg/ (Sodium Chloride) 100 mls @ 10 mls/hr IV DIRECT JOLIE Last Admin: 01/15/19 12:17 Dose: 8 mg/hr, 10 mls/hr Documented by: Vancomycin HCl (Vancomycin/Ns 1 Gm/250 Ml) 1 gm in 250 mls @ 166.667 mls/hr IV Q12HR JOLIE Last Admin: 01/15/19 09:28 Dose: 166.667 mls/hr Documented by: Dextrose/Sodium Chloride (D5/0.45ns) 1,000 mls @ 75 mls/hr IV DIRECT [facility] Last Admin: 01/14/19 23:50 Dose: 75 mls/hr Documented by: Cefepime HCl (Maxipime/Ns 2 Gm/100 Ml) 2 gm in 100 mls @ 200 mls/hr IV Q8HR [facility] Last Admin: 01/15/19 13:11 Dose: 200 mls/hr Documented by: Sodium Chloride (Nacl 0.9% 1000 Ml) 1,000 mls @ 999 mls/hr IV BOLUS ONE Stop: 01/15/19 16:42 Lorazepam (Ativan) 2 mg IV Q4H PRN PRN Reason: Agitation; seizure Last Admin: 01/14/19 13:23 Dose: 2 mg Documented by: Morphine Sulfate (Morphine) 2 mg IV Q4H PRN PRN Reason: Pain, Moderate (4-6) Last Admin: 01/14/19 14:50 Dose: 2 mg Documented by: Ondansetron HCl (Zofran) 4 mg IV Q8H PRN PRN Reason: Nausea And Vomiting Sodium Chloride (Sodium Chloride Flush Syringe 10 Ml) 10 ml IV BID [facility] Last Admin: 01/15/19 09:29 Dose: 10 ml Documented by: Sodium Chloride (Sodium Chloride Flush Syringe 10 Ml) 10 ml IV PRN PRN PRN Reason: LINE FLUSH Review of Systems ROS unobtainable: due to mental status Exam - Constitutional Vitals: Temp Pulse Resp BP Pulse Ox 97.5 F L 108 H 23 85/54 100 01/15/19 12:00 01/15/19 15:11 01/15/19 15:11 01/15/19 15:11 01/15/19 15:11 General appearance: Present: no acute distress, other (opens eyes, lying in bed with NGT) - EENT Eyes: Present: PERRL, EOM intact - Respiratory Respiratory effort: normal Respiratory: bilateral: CTA (anteriorly) - Cardiovascular Rhythm: regular Heart Sounds: Present: S1 & S2 - Extremities Extremities: No edema - Abdominal General gastrointestinal: Present: soft, non-tender, normal bowel sounds - Rectal Rectal Exam: stool brown Results - Labs CBC & Chem 7: 01/15/19 04:18 01/15/19 08:10 Labs: Abnormal lab results 07/01/14/19 01/14/19 Range/Units 05:19 08:22 08:22 RBC 3.61 L (3.65-5.03) M/mm3 Hct (30.3-42.9) % MCHC (30-34) % Lymph % (Auto) 10.8 L (13.4-35.0) % [place] % (Auto) 7.4 H (0.0-7.3) % Lymph # 0.9 L (1.2-5.4) K/mm3 Seg Neutrophils % 81.4 H (40.0-70.0) % PT (12.2-14.9) Sec. INR (0.87-1.13) Potassium 3.0 L (3.6-5.0) mmol/L Chloride (98-107) mmol/L Carbon Dioxide 21 L D (22-30) mmol/L BUN (7-17) mg/dL Creatinine 0.5 L (0.7-1.2) mg/dL Glucose 60 L (65-100) mg/dL POC Glucose (70-105) Calcium 7.4 L (8.4-10.2) mg/dL Magnesium 1.50 L (1.7-2.3) mg/dL Total Bilirubin (0.1-1.2) mg/dL AST (5-40) units/L Total Protein (6.3-8.2) g/dL Albumin (3.9-5) g/dL 01/14/19 01/14/19 01/14/19 Range/Units 16:35 16:44 22:51 RBC (3.65-5.03) M/mm3 Hct 29.8 L (30.3-42.9) % MCHC (30-34) % Lymph % (Auto) (13.4-35.0) % [place] % (Auto) (0.0-7.3) % Lymph # (1.2-5.4) K/mm3 Seg Neutrophils % (40.0-70.0) % PT (12.2-14.9) Sec. INR (0.87-1.13) Potassium 2.2 L* (3.6-5.0) mmol/L Chloride (98-107) mmol/L Carbon Dioxide (22-30) mmol/L BUN 4 L (7-17) mg/dL Creatinine 0.4 L (0.7-1.2) mg/dL Glucose (65-100) mg/dL POC Glucose 112 H (70-105) Calcium 7.2 L (8.4-10.2) mg/dL Magnesium (1.7-2.3) mg/dL Total Bilirubin (0.1-1.2) mg/dL AST 74 H (5-40) units/L Total Protein 5.8 L (6.3-8.2) g/dL Albumin 3.1 L (3.9-5) g/dL 01/15/19 01/15/19 01/15/19 Range/Units 04:18 04:18 04:18 RBC 3.51 L (3.65-5.03) M/mm3 Hct 30.0 L (30.3-42.9) % MCHC 36 H (30-34) % Lymph % (Auto) (13.4-35.0) % [place] % (Auto) (0.0-7.3) % Lymph # (1.2-5.4) K/mm3 Seg Neutrophils % (40.0-70.0) % PT 17.6 H (12.2-14.9) Sec. INR 1.48 H (0.87-1.13) Potassium 2.6 L* (3.6-5.0) mmol/L Chloride 94.9 L (98-107) mmol/L Carbon Dioxide (22-30) mmol/L BUN 3 L (7-17) mg/dL Creatinine 0.3 L (0.7-1.2) mg/dL Glucose 104 H (65-100) mg/dL POC Glucose (70-105) Calcium 7.4 L (8.4-10.2) mg/dL Magnesium (1.7-2.3) mg/dL Total Bilirubin 1.50 H (0.1-1.2) mg/dL AST 73 H (5-40) units/L Total Protein 5.4 L (6.3-8.2) g/dL Albumin 3.3 L (3.9-5) g/dL 01/15/19 Range/Units 08:10 RBC (3.65-5.03) M/mm3 Hct (30.3-42.9) % MCHC (30-34) % Lymph % (Auto) (13.4-35.0) % [place] % (Auto) (0.0-7.3) % Lymph # (1.2-5.4) K/mm3 Seg Neutrophils % (40.0-70.0) % PT (12.2-14.9) Sec. INR (0.87-1.13) Potassium 2.5 L* (3.6-5.0) mmol/L Chloride (98-107) mmol/L Carbon Dioxide (22-30) mmol/L BUN (7-17) mg/dL Creatinine (0.7-1.2) mg/dL Glucose (65-100) mg/dL POC Glucose (70-105) Calcium (8.4-10.2) mg/dL Magnesium (1.7-2.3) mg/dL Total Bilirubin (0.1-1.2) mg/dL AST (5-40) units/L Total Protein (6.3-8.2) g/dL Albumin (3.9-5) g/dL - Imaging and Cardiology CT scan - abdomen: report reviewed Assessment and Plan 1. Coffee ground emesis - H/H stable. NGT shows blood tinged slightly yellowish/clear fluid. Stool brown. No evidence of significant GI bleed. DDx - MW tear vs GERD vs PUD. - no plans for EGD at present - keep on daily PPI for prophylaxis - monitor H/H and transfuse if needed - if evidence of acute GI blood loss, please call and we will further assess.
[2019-01-15] MEDS ORDERED: NACL 0.9% 1000 ML 1,000 ML IV ONE (16:42)
--- NOTE | 2019-01-15 17:53 | XRay Report ---
LEFT HIP 2 VIEWS INDICATION / CLINICAL INFORMATION: CT scan dated 01/13/2019 COMPARISON: None available. FINDINGS: BONES / JOINT(S): No acute fracture or subluxation. No significant arthritis. SOFT TISSUES: No significant abnormality. ADDITIONAL FINDINGS: None. Signer Name: Ayden Petersen MD Signed: 01/15/2019 5:49 PM Workstation Name: [id number]
[2019-01-15] MEDS ORDERED: D5W/NS W/KCL 20MEQ 20 MEQ/1,000 ML BAG IV SCH (18:00)
--- NOTE | 2019-01-15 20:17 | Progress Note ---
Assessment and Plan Impression: 1. Complex partial epilepsy with secondary generalization 2. Hyperammonemic encephalopathy Plan: 1. Will review today's EEG and provide a separate report. 2. Will order left hip X-rays. 3. Might need urologic workup if x-rays are unrevealing, and case pain is urologic. 25 minutes spent with difficult exam and history taking due to language difference and low responses. Will sign off since improving, call for any ques tions. Should see an outpatient neurologist for consideration of taper off Keppra in 3-6 months. Subjective Date of service: 01/15/19 Principal diagnosis: seizures Interval history: HPI: This 38-year-old female is seen again in follow-up for seizures. No further seizures recorded. EEG was too noisy to read so is being repeated today. 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 She also complains of pain in her left hip. Physical exam: General appearance: Well-developed but overweight late 30s female in no acute distress. Seen with nurse helps with the language line. Neurologic exam: Mental status: Awake alert (much better than yesterday) but slow to respond. Cannot say if she is in a school or hospital but traces the O with her left hand in response. Names pen and its point in [place] but only says a few words. Cannot name president after first name prompt. Cranial nerves: Meeks are full to counting fingers, PERRL, EOMs full with some gaze evoked nystagmus. No facial weakness, hears finger rub bilaterally, shoulder shrug is 4+ bilaterally, tongue protrudes in the midline. Cerebellar: Finger to nose and heel to rossi are intact bilaterally. Motor exam upper extremities: No drift or pronation, poultry picker are 4+ bilaterally, rapid alternating movements are normal. Motor exam lower extremities: Lifts legs slightly against resistance at 4- bilaterally. Pedal push and anterior tibials are 4+ bilaterally. Rapid alternating movements are slightly slow bilaterally. Objective - Vital Sign Vital Signs - 12hr 01/15/19 01/15/19 01/15/19 08:20 08:21 08:31 Temperature 97.6 F Pulse Rate 90 103 H Pulse Rate [ From Monitor] Respiratory 10 L 20 Rate Blood Pressure 92/45 92/45 O2 Sat by Pulse 100 100 Oximetry 01/15/19 01/15/19 01/15/19 08:41 08:51 09:00 Temperature Pulse Rate 92 H 88 89 Pulse Rate [ From Monitor] Respiratory 22 16 24 Rate Blood Pressure 92/45 92/45 100/56 O2 Sat by Pulse 100 100 100 Oximetry 01/15/19 01/15/19 01/15/19 09:11 09:21 09:31 Temperature Pulse Rate 103 H 91 H 104 H Pulse Rate [ From Monitor] Respiratory 16 26 H 14 Rate Blood Pressure 100/56 100/56 100/56 O2 Sat by Pulse 100 100 100 Oximetry 01/15/19 01/15/19 01/15/19 09:41 09:51 10:00 Temperature Pulse Rate 97 H 100 H 112 H Pulse Rate [ From Monitor] Respiratory 23 20 21 Rate Blood Pressure 100/56 100/56 94/62 O2 Sat by Pulse 100 100 100 Oximetry 01/15/19 01/15/19 01/15/19 10:11 10:21 10:31 Temperature Pulse Rate 97 H 104 H 102 H Pulse Rate [ From Monitor] Respiratory 20 19 17 Rate Blood Pressure 94/62 94/62 94/62 O2 Sat by Pulse 100 100 98 Oximetry 01/15/19 01/15/19 01/15/19 10:41 10:51 11:00 Temperature Pulse Rate 106 H 113 H 97 H Pulse Rate [ From Monitor] Respiratory 12 14 16 Rate Blood Pressure 94/62 94/62 88/53 O2 Sat by Pulse 100 100 100 Oximetry 01/15/19 01/15/19 01/15/19 11:11 11:21 11:31 Temperature Pulse Rate 95 H 100 H 96 H Pulse Rate [ From Monitor] Respiratory 16 20 21 Rate Blood Pressure 88/53 88/53 88/53 O2 Sat by Pulse 100 100 100 Oximetry 01/15/19 01/15/19 01/15/19 11:41 11:51 12:00 Temperature 97.5 F L Pulse Rate 102 H 98 H 101 H Pulse Rate [ 94 H From Monitor] Respiratory 27 H 20 18 Rate Blood Pressure 88/53 88/53 95/65 O2 Sat by Pulse 100 100 100 Oximetry 01/15/19 01/15/19 01/15/19 12:11 12:21 12:31 Temperature Pulse Rate 97 H 96 H 98 H Pulse Rate [ From Monitor] Respiratory 23 22 15 Rate Blood Pressure 95/65 95/65 95/65 O2 Sat by Pulse 99 99 100 Oximetry 01/15/19 01/15/19 01/15/19 12:41 12:51 13:00 Temperature Pulse Rate 98 H 98 H 96 H Pulse Rate [ From Monitor] Respiratory 13 16 18 Rate Blood Pressure 95/65 95/65 98/55 O2 Sat by Pulse 100 100 100 Oximetry 01/15/19 01/15/19 01/15/19 13:11 13:21 13:31 Temperature Pulse Rate 107 H 108 H 89 Pulse Rate [ From Monitor] Respiratory 21 14 15 Rate Blood Pressure 98/55 98/55 98/55 O2 Sat by Pulse 100 100 100 Oximetry 01/15/19 01/15/19 01/15/19 13:41 13:51 14:00 Temperature Pulse Rate 89 94 H 94 H Pulse Rate [ From Monitor] Respiratory 23 32 H 24 Rate Blood Pressure 98/55 98/55 86/44 O2 Sat by Pulse 100 99 99 Oximetry 01/15/19 01/15/19 01/15/19 14:11 14:21 14:30 Temperature Pulse Rate 96 H 109 H 91 H Pulse Rate [ From Monitor] Respiratory 23 20 23 Rate Blood Pressure 86/44 86/44 86/44 O2 Sat by Pulse 99 100 100 Oximetry 01/15/19 01/15/19 01/15/19 14:41 14:51 15:00 Temperature Pulse Rate 109 H 107 H 101 H Pulse Rate [ From Monitor] Respiratory 18 12 20 Rate Blood Pressure 86/44 85/54 91/55 O2 Sat by Pulse 99 99 100 Oximetry 01/15/19 01/15/19 01/15/19 15:11 15:21 15:31 Temperature Pulse Rate 108 H 99 H 98 H Pulse Rate [ From Monitor] Respiratory 23 22 20 Rate Blood Pressure 85/54 85/54 85/54 O2 Sat by Pulse 100 99 100 Oximetry 01/15/19 01/15/19 01/15/19 15:41 15:51 16:00 Temperature 97.4 F L Pulse Rate 100 H 91 H 95 H Pulse Rate [ 94 H From Monitor] Respiratory 21 10 L 12 Rate Blood Pressure 90/57 90/57 98/62 O2 Sat by Pulse 100 100 100 Oximetry 01/15/19 01/15/19 01/15/19 16:11 16:21 16:31 Temperature Pulse Rate 101 H 101 H 103 H Pulse Rate [ From Monitor] Respiratory 11 L 16 17 Rate Blood Pressure 98/62 98/62 98/62 O2 Sat by Pulse 100 100 100 Oximetry 01/15/19 01/15/19 01/15/19 16:41 16:51 17:00 Temperature Pulse Rate 101 H 99 H 94 H Pulse Rate [ From Monitor] Respiratory 18 19 18 Rate Blood Pressure 98/62 98/62 O2 Sat by Pulse 100 100 100 Oximetry 01/15/19 01/15/19 01/15/19 17:10 17:21 17:31 Temperature Pulse Rate 100 H 95 H 96 H Pulse Rate [ From Monitor] Respiratory 20 16 18 Rate Blood Pressure 95/53 100/58 100/58 O2 Sat by Pulse 100 100 100 Oximetry 01/15/19 01/15/19 01/15/19 17:41 17:51 18:00 Temperature Pulse Rate 98 H 107 H 106 H Pulse Rate [ From Monitor] Respiratory 15 18 17 Rate Blood Pressure 100/58 100/58 106/72 O2 Sat by Pulse 100 100 100 Oximetry 01/15/19 01/15/19 01/15/19 18:11 18:21 18:31 Temperature Pulse Rate 110 H 112 H 103 H Pulse Rate [ From Monitor] Respiratory 16 19 18 Rate Blood Pressure 100/58 100/58 100/58 O2 Sat by Pulse 100 100 100 Oximetry 01/15/19 01/15/19 01/15/19 18:41 18:51 19:00 Temperature Pulse Rate 109 H 112 H 110 H Pulse Rate [ From Monitor] Respiratory 15 25 H 16 Rate Blood Pressure 100/58 100/58 100/65 O2 Sat by Pulse 100 100 100 Oximetry 01/15/19 01/15/19 01/15/19 19:11 19:21 19:31 Temperature Pulse Rate 107 H 104 H 104 H Pulse Rate [ From Monitor] Respiratory 25 H 22 22 Rate Blood Pressure 100/65 100/65 100/65 O2 Sat by Pulse 100 100 100 Oximetry 01/15/19 01/15/19 01/15/19 19:36 19:41 19:45 Temperature 97.7 F Pulse Rate 104 H Pulse Rate [ From Monitor] Respiratory 21 Rate Blood Pressure 100/65 O2 Sat by Pulse 100 100 Oximetry 01/15/19 01/15/19 19:51 20:00 Temperature Pulse Rate 109 H 108 H Pulse Rate [ 103 H From Monitor] Respiratory 14 23 Rate Blood Pressure 100/65 105/64 O2 Sat by Pulse 100 100 Oximetry - Laboratory Findings CBC and BMP: 01/15/19 04:18 01/15/19 15:12 Abnormal Lab Findings: Abnormal Labs 01/13/19 01/13/19 01/13/19 15:40 15:43 15:43 WBC 13.6 H RBC Hct MCHC Lymph % (Auto) 5.4 L [place] % (Auto) Lymph # 0.7 L Seg Neutrophils % 88.6 H Seg Neutrophils # 12.0 H PT INR POC ABG pO2 Potassium 2.8 L* Chloride Carbon Dioxide 9 L* D BUN 23 H Creatinine Glucose 109 H POC Glucose 109 H Lactic Acid Calcium 8.2 L Magnesium Total Bilirubin 1.30 H AST 46 H Ammonia Lactate Dehydrogenase Total Protein Albumin 3.7 L Lipase Salicylates Acetaminophen 01/13/19 01/13/19 01/13/19 15:43 15:43 15:43 WBC RBC Hct MCHC Lymph % (Auto) [place] % (Auto) Lymph # Seg Neutrophils % Seg Neutrophils # PT INR POC ABG pO2 Potassium Chloride Carbon Dioxide BUN Creatinine Glucose POC Glucose Lactic Acid 14.10 H* Calcium Magnesium Total Bilirubin AST Ammonia 157.0 H Lactate Dehydrogenase Total Protein Albumin Lipase Salicylates < 0.3 L Acetaminophen 01/13/19 01/13/19 01/13/19 15:43 15:43 17:44 WBC RBC Hct MCHC Lymph % (Auto) [place] % (Auto) Lymph # Seg Neutrophils % Seg Neutrophils # PT 20.1 H INR 1.76 H POC ABG pO2 Potassium Chloride Carbon Dioxide BUN Creatinine Glucose POC Glucose Lactic Acid Calcium Magnesium Total Bilirubin AST Ammonia Lactate Dehydrogenase 296 H Total Protein Albumin Lipase 71 H Salicylates Acetaminophen < 5.0 L 01/13/19 01/14/19 01/14/19 18:03 05:19 08:22 WBC RBC 3.61 L Hct MCHC Lymph % (Auto) 10.8 L [place] % (Auto) 7.4 H Lymph # 0.9 L Seg Neutrophils % 81.4 H Seg Neutrophils # PT INR POC ABG pO2 142 H Potassium 3.0 L Chloride Carbon Dioxide BUN Creatinine Glucose POC Glucose Lactic Acid Calcium Magnesium 1.50 L Total Bilirubin AST Ammonia Lactate Dehydrogenase Total Protein Albumin Lipase Salicylates Acetaminophen 01/14/19 01/14/19 01/14/19 08:22 08:22 09:49 WBC RBC Hct MCHC Lymph % (Auto) [place] % (Auto) Lymph # Seg Neutrophils % Seg Neutrophils # PT INR POC ABG pO2 Potassium 2.3 L* D Chloride Carbon Dioxide 21 L D BUN Creatinine 0.5 L Glucose 60 L POC Glucose Lactic Acid 2.50 H* Calcium 7.4 L Magnesium Total Bilirubin AST Ammonia Lactate Dehydrogenase Total Protein Albumin Lipase Salicylates Acetaminophen 01/14/19 01/14/19 01/14/19 16:35 16:44 22:51 WBC RBC Hct 29.8 L MCHC Lymph % (Auto) [place] % (Auto) Lymph # Seg Neutrophils % Seg Neutrophils # PT INR POC ABG pO2 Potassium 2.2 L* Chloride Carbon Dioxide BUN 4 L Creatinine 0.4 L Glucose POC Glucose 112 H Lactic Acid Calcium 7.2 L Magnesium Total Bilirubin AST 74 H Ammonia Lactate Dehydrogenase Total Protein 5.8 L Albumin 3.1 L Lipase Salicylates Acetaminophen 01/15/19 01/15/19 01/15/19 04:18 04:18 04:18 WBC RBC 3.51 L Hct 30.0 L MCHC 36 H Lymph % (Auto) [place] % (Auto) Lymph # Seg Neutrophils % Seg Neutrophils # PT 17.6 H INR 1.48 H POC ABG pO2 Potassium 2.6 L* Chloride 94.9 L Carbon Dioxide BUN 3 L Creatinine 0.3 L Glucose 104 H POC Glucose Lactic Acid Calcium 7.4 L Magnesium Total Bilirubin 1.50 H AST 73 H Ammonia Lactate Dehydrogenase Total Protein 5.4 L Albumin 3.3 L Lipase Salicylates Acetaminophen 01/15/19 01/15/19 08:10 15:12 WBC RBC Hct MCHC Lymph % (Auto) [place] % (Auto) Lymph # Seg Neutrophils % Seg Neutrophils # PT INR POC ABG pO2 Potassium 2.5 L* 2.8 L* Chloride Carbon Dioxide BUN Creatinine Glucose POC Glucose Lactic Acid Calcium Magnesium Total Bilirubin AST Ammonia Lactate Dehydrogenase Total Protein Albumin Lipase Salicylates Acetaminophen
--- NOTE | 2019-01-15 21:08 | Electroencephalogram Report ---
Electroencephalogram EEG Date of exam: 01/15/19 History: high ammonia, seizures Description: This digital portable EEG is done with 10/20 international montage in a 20 min recording using 19 channels, one of which is EKG showing tachycardia. No alpha rhythms are seen. Sleep spindles are seen and later K complexes achieving stage 2 of sleep. No epileptiform activity is seen. Interpretation: Normal wake/drowsy EEG. This EEG does not exclude epilepsy of partial onset. Up to 4 EEGs over several months may be needed to capture interictal epileptiform activity.
[2019-01-15] MEDS: MORPHINE IV PRN (21:37)
[2019-01-16] MEDS: MAXIPIME/NS 2 GM/100 ML 2 GM/100 ML BAG IV SCH (05:32)
[2019-01-16 05:34] LABS: Hematocrit 30.9 % (30.3-42.9); Hemoglobin 10.5 gm/dl (10.1-14.3); Mean Corpuscular HGB Conc 34 % (30-34); Mean Corpuscular Volume 86 fl (79-97); Platelet Count 168 K/mm3 (140-440); Red Blood Count 3.58 M/mm3 (3.65-5.03); Red Cell Distribution Width 14.5 % (13.2-15.2)
[2019-01-16 05:55] LABS: Alanine Aminotransferase 44 units/L (7-56); Albumin 2.8 g/dL (3.9-5); BUN/Creatinine Ratio 10; Blood Urea Nitrogen 4 mg/dL (7-17); Calcium 7.4 mg/dL (8.4-10.2); Hemolysis Index 8
[2019-01-16] MEDS ORDERED: KPHOS 45 MMOL in NACL 0.9% 500 ML 500 ML IV ONE (07:42)
[2019-01-16] MEDS: PROTONIX 80 MG in NACL 0.9% 100 ML IV SCH (08:44)
--- NOTE | 2019-01-16 09:13 | Progress Note ---
Assessment and Plan Assessment and plan: 38-year-old female with unknown past medical history presents to [facility] ED via [facility] transportation services with complaints of altered mental status, dehydration, coffee ground emesis, and tachycardia. Pt has NG tube to LIS with small amount of dark brown drainage in collection canister. Sepsis -Leukocytosis, now resolved -Initiated sepsis protocol -Gentle hydration with IVF -IV cefepime and vancomycin -Consult ID Cholelithiasis -Seen on CT abdomen and pelvis Upper GI bleed -Patient noted to have coffee-ground -Was NPO, now s -NG tube placed to LIS -Continue Protonix drip -GI consulted, evaluated patient, signed off H/H stable. No need for EGD Acute hepatic encephalopathy -Hyperammonemia , now resolved --Received lactulose -CT abdomen/pelvis showed normal liver -Continue to monitor hepatic function -GI consulted -Status epilepticus -?? Hx Seizure disorders -Witnessed seizure in ED -Termination of seizure with administration of IV Ativan -IV Ativan prn -IV Keppra 1gm BID -Seizure precautions initiated -Neuro checks -Neurology following Hypokalemia -Still low after multiple doses of iv Potassium Hypomagnesemia Replace and recheck Lactic acidosis -Lactic acid on admission 14.10 -on IV Abx -on IVF -continue to monitor DVT PPX -SCds only because coffee ground emesis prognosis guarded History Interval history: Patient less confused, Coffee ground emesis subsiding Hospitalist Physical - Physical exam Narrative exam: Gen: Not in acute distress, lying in bed HEENT: Normocephalic, atraumatic Neck: supple, no JVD Heart: S1 and S2 reg, no murmurs, rubs or gallop Lungs: Clear to auscultation, no wheeze Abd: soft, non tender, non distended, normal BS, Ext: No edema, no clubbing, no cyanosis Neuro: Lethargic, opens eyes, follows commands, less confused. moves all ext mumbkles few words - Constitutional Vitals: Temp Pulse Resp BP Pulse Ox 98.0 F 93 H 18 121/81 100 01/16/19 04:00 01/16/19 06:21 01/16/19 06:21 01/16/19 06:21 01/16/19 09:12 General appearance: Present: no acute distress, other (opens eyes, lying in bed with NGT) Results - Labs CBC & Chem 7: 01/16/19 04:37 01/16/19 14:52 Labs: Laboratory Last Values WBC 3.5 K/mm3 (4.5-11.0) L 01/16/19 04:37 RBC 3.58 M/mm3 (3.65-5.03) L 01/16/19 04:37 Hgb 10.5 gm/dl (10.1-14.3) 01/16/19 04:37 Hct 30.9 % (30.3-42.9) 01/16/19 04:37 MCV 86 fl (79-97) 01/16/19 04:37 MCH 29 pg (28-32) 01/16/19 04:37 MCHC 34 % (30-34) 01/16/19 04:37 RDW 14.5 % (13.2-15.2) 01/16/19 04:37 Plt Count 168 K/mm3 (140-440) 01/16/19 04:37 Lymph % (Auto) 10.8 % (13.4-35.0) L 01/14/19 08:22 [place] % (Auto) 7.4 % (0.0-7.3) H 01/14/19 08:22 Eos % (Auto) 0.1 % (0.0-4.3) 01/14/19 08:22 Baso % (Auto) 0.3 % (0.0-1.8) 01/14/19 08:22 Lymph # 0.9 K/mm3 (1.2-5.4) L 01/14/19 08:22 [place] # 0.6 K/mm3 (0.0-0.8) 01/14/19 08:22 Eos # 0.0 K/mm3 (0.0-0.4) 01/14/19 08:22 Baso # 0.0 K/mm3 (0.0-0.1) 01/14/19 08:22 Seg Neutrophils % 81.4 % (40.0-70.0) H 01/14/19 08:22 Seg Neutrophils # 6.5 K/mm3 (1.8-7.7) 01/14/19 08:22 PT 17.6 Sec. (12.2-14.9) H 01/15/19 04:18 INR 1.48 (0.87-1.13) H 01/15/19 04:18 APTT 29.2 Sec. (24.2-36.6) 01/13/19 17:44 POC ABG pH 7.371 (7.35-7.45) 01/13/19 18:03 POC ABG pO2 142 (80-105) H 01/13/19 18:03 POC ABG HCO3 10.6 (22-26 mml/L) 01/13/19 18:03 POC ABG Total CO2 11 (23-27mmol/L) 01/13/19 18:03 POC ABG O2 Sat 99 01/13/19 18:03 POC ABG Base Excess -15 ((-2) - (+3)mmol/L) 01/13/19 18:03 32 % 01/13/19 18:03 Sodium 139 mmol/L (137-145) 01/16/19 04:37 Potassium 3.2 mmol/L (3.6-5.0) L 01/16/19 04:37 Chloride 106.3 mmol/L (98-107) 01/16/19 04:37 Carbon Dioxide 22 mmol/L (22-30) 01/16/19 04:37 14 mmol/L 01/16/19 04:37 BUN 4 mg/dL (7-17) L 01/16/19 04:37 0.4 mg/dL (0.7-1.2) L 01/16/19 04:37 Estimated GFR > 60 ml/min 01/16/19 04:37 10 % 01/16/19 04:37 Glucose 134 mg/dL (65-100) H 01/16/19 04:37 POC Glucose 112 (70-105) H 01/14/19 16:35 Lactic Acid 1.90 mmol/L (0.7-2.0) 01/14/19 16:44 Calcium 7.4 mg/dL (8.4-10.2) L 01/16/19 04:37 Phosphorus 1.10 mg/dL (2.5-4.5) L 01/16/19 04:37 Magnesium 1.80 mg/dL (1.7-2.3) 01/16/19 04:37 0.80 mg/dL (0.1-1.2) 01/16/19 04:37 AST 58 units/L (5-40) H 01/16/19 04:37 ALT 44 units/L (7-56) 01/16/19 04:37 79 units/L (35-129) 01/16/19 04:37 30.0 umol/L (25-60) 01/15/19 04:18 296 units/L (91-180) H 01/13/19 15:43 133 units/L (30-135) 01/13/19 15:43 < 0.010 ng/mL (0.00-0.029) 01/14/19 05:19 5.6 g/dL (6.3-8.2) L 01/16/19 04:37 2.8 g/dL (3.9-5) L 01/16/19 04:37 1.0 % 01/16/19 04:37 27 units/L (13-60) 01/14/19 10:43 TSH 3.070 mlU/mL (0.270-4.200) 01/13/19 15:43 HCG, Quant < 2 mIU/mL (0-4) 01/13/19 17:44 Peri (Yellow) 01/13/19 16:23 Clear (Clear) 01/13/19 16:23 6.0 (5.0-7.0) 01/13/19 16:23 Ur Specific [place] 1.027 (1.003-1.030) 01/13/19 16:23 100 mg/dl mg/dL (Negative) 01/13/19 16:23 Neg mg/dL (Negative) 01/13/19 16:23 20 mg/dL (Negative) 01/13/19 16:23 Sm (Negative) 01/13/19 16:23 Neg (Negative) 01/13/19 16:23 Neg (Negative) 01/13/19 16:23 4.0 mg/dL (<2.0) 01/13/19 16:23 Ur Leukocyte Esterase Neg (Negative) 01/13/19 16:23 4.0 /HPF (0.0-6.0) 01/13/19 16:23 1.0 /HPF (0.0-6.0) 01/13/19 16:23 U Epithel Cells (Auto) 1.0 /HPF (0-13.0) 01/13/19 16:23 2+ /HPF 01/13/19 16:23 Salicylates < 0.3 mg/dL (2.8-20.0) L 01/13/19 15:43 Presumptive negative 01/13/19 16:23 Presumptive negative 01/13/19 16:23 Acetaminophen < 5.0 ug/mL (10.0-30.0) L 01/13/19 15:43 Ur Barbiturates Screen Presumptive negative 01/13/19 16:23 Ur Phencyclidine Scrn Presumptive negative 01/13/19 16:23 Ur Amphetamines Screen Presumptive negative 01/13/19 16:23 U Benzodiazepines Scrn Presumptive negative 01/13/19 16:23 Presumptive negative 01/13/19 16:23 U Marijuana (THC) Screen Presumptive negative 01/13/19 16:23 Disclamer 01/13/19 16:23 Plasma/Serum Alcohol < 0.01 % (0-0.07) 01/13/19 15:43 Active Medications - Current Medications Current Medications: Generic Name Dose Route Start Last Admin Trade Name Freq PRN Reason Stop Dose Admin Acetaminophen 650 mg 01/13/19 19:52 Tylenol AL Q4H PRN Pain, Mild (1-3)/ Fever>100.5 Albuterol 2.5 mg 01/13/19 19:42 Proventil IH Q3HRT PRN Shortness Of Breath Levetiracetam 1,000 mg/ 110 mls @ 400 mls/hr 01/13/19 22:00 01/15/19 21:40 Dextrose IV 400 mls/hr Q12HR JOLIE Administration Pantoprazole Sodium 80 mg/ 100 mls @ 10 mls/hr 01/13/19 20:00 01/16/19 08:44 Sodium Chloride IV 01/16/19 18:00 8 mg/hr DIRECT JOLIE 10 mls/hr Administration 8 MG/HR Vancomycin HCl 1 gm in 250 mls @ 166.667 mls/hr 01/14/19 10:00 01/15/19 21:40 Vancomycin/Ns 1 Gm/250 Ml IV 166.667 mls/hr Q12HR JOLIE Administration Cefepime HCl 2 gm in 100 mls @ 200 mls/hr 01/15/19 14:00 01/16/19 05:32 Maxipime/Ns 2 Gm/100 Ml IV 200 mls/hr Q8HR JOLIE Administration Potassium Chloride/Dextrose/Sod Cl 20 meq in 1,000 mls @ 75 mls/hr 01/15/19 18:00 01/15/19 17:34 D5w/Ns W/Kcl 20meq IV 75 mls/hr DIRECT JOLIE Administration Potassium Phosphate 45 mmol/ 515 mls @ 85 mls/hr 01/16/19 07:42 Sodium Chloride IV 01/16/19 13:45 ONCE ONE Lorazepam 2 mg 01/13/19 19:48 01/14/19 13:23 Ativan IV 2 mg Q4H PRN Administration Agitation; seizure Morphine Sulfate 2 mg 01/13/19 19:42 01/15/19 21:37 Morphine IV 2 mg Q4H PRN Administration Pain, Moderate (4-6) Ondansetron HCl 4 mg 01/13/19 19:42 Zofran IV Q8H PRN Nausea And Vomiting Pantoprazole Sodium 40 mg 01/17/19 10:00 Protonix IV QDAY JOLIE Sodium Chloride 10 ml 01/13/19 22:00 01/15/19 21:07 Sodium Chloride Flush Syringe 10 Ml IV 10 ml BID JOLIE Administration Sodium Chloride 10 ml 01/13/19 19:42 Sodium Chloride Flush Syringe 10 Ml IV PRN PRN LINE FLUSH
[2019-01-16] MEDS: KEPPRA 1,000 MG in D5W 100 ML IV SCH ×2 (11:04→22:13)
[2019-01-16] MEDS: VANCOMYCIN/NS 1 GM/250 ML 1 GM/250 ML BAG IV SCH (11:04)
[2019-01-16] MEDS: SODIUM CHLORIDE FLUSH SYRINGE 10 ML IV SCH ×2 (11:05→22:14)
--- NOTE | 2019-01-16 11:09 | Progress Note ---
Assessment and Plan Cultures: 01/13 BCx NGTD 01/13 UCx NGTD A/P: 38 yo F unknown PMHx [facility] from [facility] 1) AMS - non-verbal, normal imaging. Likely secondary to electrolyte and volume derangements. Appears non-infective at this time. Would stop antibiotics and monitor. 2) Coffee ground emesis - concern for UGIB 3) Volume depletion 4) hypokalemia 5) seizures Recs stop vancomycin stop cefepime. Thank you for involving us in Ms. French's care. We will sign off MD [facility] ([facility]) C: [phone] O: [phone] F: [phone] Subjective Date of service: 01/16/19 Principal diagnosis: seizures Interval history: Asleep this morning on rounds but easily rousable, however non-verbal to questions. Mostly groans. Objective - Exam Narrative Exam: Constitutional: rousable, non-verbal. Groans Head, Ears, Nose: Normocephalic, atraumatic. External ears, nose normal Eyes: Conjunctivae/corneas clear. No icterus. No ptosis. Neck: Supple, no meningeal signs Oral: poor dentition, coffee emesis evident on teeth Cardiovascular: S1, S2 normal. Normal rhythm Respiratory: Good air entry, clear to auscultation bilaterally GI: Soft, non-tender; bowel sounds normal. No peritoneal signs Musculoskeletal: No pedal edema, Skin: No rash or abscess Hem/Lymphatic: No palpable cervical or supraclavicular nodes. No lymphangitis Psych: no agitation Neurological: Disoriented, altered - Constitutional Vitals: Vital Signs Temp Pulse Resp BP Pulse Ox 98.0 F 93 H 18 121/81 100 01/16/19 04:00 01/16/19 06:21 01/16/19 06:21 01/16/19 06:21 01/16/19 09:12 Temperature -Last 24 Hours Temperature 98.0 F Temperature 97.7 F Temperature 98.5 F Temperature 98.5 F Temperature 98.5 F Temperature 97.7 F Temperature 97.4 F Temperature 97.5 F - Labs CBC & Chem 7: 01/16/19 04:37 01/16/19 04:37 Labs: Abnormal lab results 01/15/19 01/16/19 01/16/19 Range/Units 15:12 04:37 04:37 WBC 3.5 L (4.5-11.0) K/mm3 RBC 3.58 L (3.65-5.03) M/mm3 Potassium 2.8 L* 3.2 L (3.6-5.0) mmol/L BUN 4 L (7-17) mg/dL Creatinine 0.4 L (0.7-1.2) mg/dL Glucose 134 H (65-100) mg/dL Calcium 7.4 L (8.4-10.2) mg/dL Phosphorus 1.10 L (2.5-4.5) mg/dL AST 58 H (5-40) units/L Total Protein 5.6 L (6.3-8.2) g/dL Albumin 2.8 L (3.9-5) g/dL
[2019-01-16] MEDS ORDERED: SODIUM PHOSPHATE 30 MMOL in NACL 0.9% 500 ML 500 ML IV ONE (16:49)
[2019-01-16] MEDS ORDERED: CALCIUM GLUCONATE 1,000 MG in NACL 0.9% 100 ML IV STA (17:12)
[2019-01-16] MEDS: D5/0.45NS 1,000 ML IV SCH (19:12)
[2019-01-17 05:06] LABS: Hematocrit 30.4 % (30.3-42.9); Hemoglobin 10.6 gm/dl (10.1-14.3); Mean Corpuscular HGB Conc 35 % (30-34); Mean Corpuscular Volume 87 fl (79-97); Platelet Count 206 K/mm3 (140-440); Red Blood Count 3.52 M/mm3 (3.65-5.03)
[2019-01-17 05:28] LABS: Alanine Aminotransferase 60 units/L (7-56); Albumin 3.1 g/dL (3.9-5); BUN/Creatinine Ratio 8; Blood Urea Nitrogen 4 mg/dL (7-17); Calcium 8.1 mg/dL (8.4-10.2); Hemolysis Index 10
[2019-01-17] MEDS: D5/0.45NS 1,000 ML IV SCH ×2 (06:28→19:54)
[2019-01-17] MEDS: KCL 10MEQ/100ML 10 MEQ/100 ML BAG IV SCH ×2 (06:59→10:11)
[2019-01-17] MEDS: POTASSIUM CHLORIDE PO SCH ×2 (08:32→14:45)
--- NOTE | 2019-01-17 09:16 | Progress Note ---
Assessment and Plan Assessment and plan: 38-year-old female with unknown past medical history presents to [facility] ED via [facility] transportation services with complaints of altered mental status, dehydration, coffee ground emesis, and tachycardia. Sepsis -Initiated sepsis protocol -Gentle hydration with IVF -IV cefepime and vancomycin -ID Physician following Cholelithiasis -Seen on CT abdomen and pelvis Upper GI bleed -Patient noted to have coffee-ground -Was NPO, now s -NG tube placed to LIS -Continue Protonix drip -GI consulted, evaluated patient, signed off H/H stable. No need for EGD Acute hepatic encephalopathy -Hyperammonemia , now resolved --Received lactulose -CT abdomen/pelvis showed normal liver -Continue to monitor hepatic function -Status epilepticus -?? Hx Seizure disorders -Witnessed seizure in ED -Termination of seizure with administration of IV Ativan -IV Ativan prn -IV Keppra 1gm BID -Seizure precautions initiated -Neuro checks -Neurology following Hypokalemia now resolved after large doses given Hypomagnesemia Replace and recheck Lactic acidosis -Lactic acid on admission 14.10 -on IV Abx -on IVF -continue to monitor DVT PPX -SCds only because coffee ground emesis prognosis guarded History Interval history: Patient less confused, Non verbal Coffee ground emesis subsiding Hospitalist Physical - Physical exam Narrative exam: Gen: Not in acute distress, lying in bed HEENT: Normocephalic, atraumatic Neck: supple, no JVD Heart: S1 and S2 reg, no murmurs, rubs or gallop Lungs: Clear to auscultation, no wheeze Abd: soft, non tender, non distended, normal BS, Ext: No edema, no clubbing, no cyanosis Neuro: Lethargic, opens eyes, follows commands, less confused. moves all ext mumbles few words - Constitutional Vitals: Temp Pulse Resp BP Pulse Ox 99.4 F 102 H 20 120/81 99 01/17/19 03:02 01/17/19 06:41 01/17/19 06:41 01/17/19 06:41 01/17/19 08:15 General appearance: Present: no acute distress, other (opens eyes, lying in bed with NGT) Results - Labs CBC & Chem 7: 01/18/19 09:55 01/18/19 04:35 Labs: Laboratory Last Values WBC 5.0 K/mm3 (4.5-11.0) 01/17/19 04:36 RBC 3.52 M/mm3 (3.65-5.03) L 01/17/19 04:36 Hgb 10.6 gm/dl (10.1-14.3) 01/17/19 04:36 Hct 30.4 % (30.3-42.9) 01/17/19 04:36 MCV 87 fl (79-97) 01/17/19 04:36 MCH 30 pg (28-32) 01/17/19 04:36 MCHC 35 % (30-34) H 01/17/19 04:36 RDW 15.0 % (13.2-15.2) 01/17/19 04:36 Plt Count 206 K/mm3 (140-440) 01/17/19 04:36 Lymph % (Auto) 10.8 % (13.4-35.0) L 01/14/19 08:22 [place] % (Auto) 7.4 % (0.0-7.3) H 01/14/19 08:22 Eos % (Auto) 0.1 % (0.0-4.3) 01/14/19 08:22 Baso % (Auto) 0.3 % (0.0-1.8) 01/14/19 08:22 Lymph # 0.9 K/mm3 (1.2-5.4) L 01/14/19 08:22 [place] # 0.6 K/mm3 (0.0-0.8) 01/14/19 08:22 Eos # 0.0 K/mm3 (0.0-0.4) 01/14/19 08:22 Baso # 0.0 K/mm3 (0.0-0.1) 01/14/19 08:22 Seg Neutrophils % 81.4 % (40.0-70.0) H 01/14/19 08:22 Seg Neutrophils # 6.5 K/mm3 (1.8-7.7) 01/14/19 08:22 PT 17.6 Sec. (12.2-14.9) H 01/15/19 04:18 INR 1.48 (0.87-1.13) H 01/15/19 04:18 APTT 29.2 Sec. (24.2-36.6) 01/13/19 17:44 POC ABG pH 7.371 (7.35-7.45) 01/13/19 18:03 POC ABG pO2 142 (80-105) H 01/13/19 18:03 POC ABG HCO3 10.6 (22-26 mml/L) 01/13/19 18:03 POC ABG Total CO2 11 (23-27mmol/L) 01/13/19 18:03 POC ABG O2 Sat 99 01/13/19 18:03 POC ABG Base Excess -15 ((-2) - (+3)mmol/L) 01/13/19 18:03 32 % 01/13/19 18:03 Sodium 138 mmol/L (137-145) 01/17/19 04:36 Potassium 3.4 mmol/L (3.6-5.0) L 01/17/19 04:36 Chloride 107.2 mmol/L (98-107) H 01/17/19 04:36 Carbon Dioxide 19 mmol/L (22-30) L 01/17/19 04:36 15 mmol/L 01/17/19 04:36 BUN 4 mg/dL (7-17) L 01/17/19 04:36 0.5 mg/dL (0.7-1.2) L 01/17/19 04:36 Estimated GFR > 60 ml/min 01/17/19 04:36 8 % 01/17/19 04:36 Glucose 146 mg/dL (65-100) H 01/17/19 04:36 POC Glucose 112 (70-105) H 01/14/19 16:35 Lactic Acid 1.90 mmol/L (0.7-2.0) 01/14/19 16:44 Calcium 8.1 mg/dL (8.4-10.2) L 01/17/19 04:36 Phosphorus 3.90 mg/dL (2.5-4.5) D 01/17/19 04:36 Magnesium 1.70 mg/dL (1.7-2.3) 01/17/19 04:36 0.60 mg/dL (0.1-1.2) 01/17/19 04:36 AST 59 units/L (5-40) H 01/17/19 04:36 ALT 60 units/L (7-56) H 01/17/19 04:36 91 units/L (35-129) 01/17/19 04:36 30.0 umol/L (25-60) 01/15/19 04:18 296 units/L (91-180) H 01/13/19 15:43 133 units/L (30-135) 01/13/19 15:43 < 0.010 ng/mL (0.00-0.029) 01/14/19 05:19 6.3 g/dL (6.3-8.2) 01/17/19 04:36 3.1 g/dL (3.9-5) L 01/17/19 04:36 1.0 % 01/17/19 04:36 27 units/L (13-60) 01/14/19 10:43 TSH 3.070 mlU/mL (0.270-4.200) 01/13/19 15:43 HCG, Quant < 2 mIU/mL (0-4) 01/13/19 17:44 Peri (Yellow) 01/13/19 16:23 Clear (Clear) 01/13/19 16:23 6.0 (5.0-7.0) 01/13/19 16:23 Ur Specific [place] 1.027 (1.003-1.030) 01/13/19 16:23 100 mg/dl mg/dL (Negative) 01/13/19 16:23 Neg mg/dL (Negative) 01/13/19 16:23 20 mg/dL (Negative) 01/13/19 16:23 Sm (Negative) 01/13/19 16:23 Neg (Negative) 01/13/19 16:23 Neg (Negative) 01/13/19 16:23 4.0 mg/dL (<2.0) 01/13/19 16:23 Ur Leukocyte Esterase Neg (Negative) 01/13/19 16:23 4.0 /HPF (0.0-6.0) 01/13/19 16:23 1.0 /HPF (0.0-6.0) 01/13/19 16:23 U Epithel Cells (Auto) 1.0 /HPF (0-13.0) 01/13/19 16:23 2+ /HPF 01/13/19 16:23 Salicylates < 0.3 mg/dL (2.8-20.0) L 01/13/19 15:43 Presumptive negative 01/13/19 16:23 Presumptive negative 01/13/19 16:23 Acetaminophen < 5.0 ug/mL (10.0-30.0) L 01/13/19 15:43 Ur Barbiturates Screen Presumptive negative 01/13/19 16:23 Ur Phencyclidine Scrn Presumptive negative 01/13/19 16:23 Ur Amphetamines Screen Presumptive negative 01/13/19 16:23 U Benzodiazepines Scrn Presumptive negative 01/13/19 16:23 Presumptive negative 01/13/19 16:23 U Marijuana (THC) Screen Presumptive negative 01/13/19 16:23 Disclamer 01/13/19 16:23 Plasma/Serum Alcohol < 0.01 % (0-0.07) 01/13/19 15:43 Active Medications - Current Medications Current Medications: Generic Name Dose Route Start Last Admin Trade Name Freq PRN Reason Stop Dose Admin Acetaminophen 650 mg 01/13/19 19:52 Tylenol SD Q4H PRN Pain, Mild (1-3)/ Fever>100.5 Albuterol 2.5 mg 01/13/19 19:42 Proventil IH Q3HRT PRN Shortness Of Breath Levetiracetam 1,000 mg/ 110 mls @ 400 mls/hr 01/13/19 22:00 01/16/19 22:13 Dextrose IV 400 mls/hr Q12HR JOLIE Administration Dextrose/Sodium Chloride 1,000 mls @ 75 mls/hr 01/16/19 17:00 01/17/19 06:28 D5/0.45ns IV 75 mls/hr DIRECT JOLIE Administration Lorazepam 2 mg 01/13/19 19:48 01/14/19 13:23 Ativan IV 2 mg Q4H PRN Administration Agitation; seizure Morphine Sulfate 2 mg 01/13/19 19:42 01/15/19 21:37 Morphine IV 2 mg Q4H PRN Administration Pain, Moderate (4-6) Ondansetron HCl 4 mg 01/13/19 19:42 Zofran IV Q8H PRN Nausea And Vomiting Pantoprazole Sodium 40 mg 01/17/19 10:00 Protonix IV QDAY JOLIE Potassium Chloride 40 meq 01/17/19 08:00 01/17/19 08:32 Potassium Chloride PO 01/17/19 14:01 40 meq Q6H JOLIE Administration Sodium Chloride 10 ml 01/13/19 22:00 01/16/19 22:14 Sodium Chloride Flush Syringe 10 Ml IV 10 ml BID JOLIE Administration Sodium Chloride 10 ml 01/13/19 19:42 Sodium Chloride Flush Syringe 10 Ml IV PRN PRN LINE FLUSH
[2019-01-17] MEDS: SODIUM CHLORIDE FLUSH SYRINGE 10 ML IV SCH ×2 (10:10→21:19)
[2019-01-17] MEDS: PROTONIX IV SCH (10:10)
[2019-01-17] MEDS: KEPPRA 1,000 MG in D5W 100 ML IV SCH ×2 (14:05→21:23)
[2019-01-17] MEDS: MORPHINE IV PRN (20:28)
[2019-01-17] MEDS: ATIVAN IV PRN (21:19)
[2019-01-18 05:20] LABS: BUN/Creatinine Ratio 10; Blood Urea Nitrogen 4 mg/dL (7-17); Calcium 8.3 mg/dL (8.4-10.2); Hemolysis Index 44
[2019-01-18] MEDS: MORPHINE IV PRN ×2 (06:01→23:46)
[2019-01-18] MEDS ORDERED: SODIUM PHOSPHATE 30 MMOL in NACL 0.9% 500 ML 500 ML IV ONE (07:26)
[2019-01-18] MEDS: KEPPRA 1,000 MG in D5W 100 ML IV SCH ×2 (10:08→21:51)
[2019-01-18] MEDS: D5/0.45NS 1,000 ML IV SCH (10:08)
[2019-01-18] MEDS: SODIUM CHLORIDE FLUSH SYRINGE 10 ML IV SCH ×2 (10:09→21:57)
[2019-01-18] MEDS: PROTONIX IV SCH (10:09)
[2019-01-18 10:29] LABS: Hemoglobin 11.4 gm/dl (10.1-14.3); Mean Corpuscular HGB Conc 33 % (30-34); Mean Corpuscular Volume 86 fl (79-97); Platelet Count 173 K/mm3 (140-440); Red Blood Count 3.97 M/mm3 (3.65-5.03); Red Cell Distribution Width 15.2 % (13.2-15.2)
--- NOTE | 2019-01-18 11:26 | Progress Note ---
Assessment and Plan Assessment and plan: 38-year-old female with unknown past medical history presents to [facility] ED via [facility] transportation services with complaints of altered mental status, dehydration, coffee ground emesis, and tachycardia. Sepsis -Initiated sepsis protocol -Gentle hydration with IVF -IV cefepime and vancomycin -ID Physician following Cholelithiasis -Seen on CT abdomen and pelvis Upper GI bleed -Patient noted to have coffee-ground -Was NPO, now s -NG tube placed to LIS -Continue Protonix drip -GI consulted, evaluated patient, signed off H/H stable. No need for EGD Acute hepatic encephalopathy -Hyperammonemia , now resolved --Received lactulose -CT abdomen/pelvis showed normal liver -Continue to monitor hepatic function -Status epilepticus -?? Hx Seizure disorders -Witnessed seizure in ED -Termination of seizure with administration of IV Ativan -IV Ativan prn -IV Keppra 1gm BID -Seizure precautions initiated -Neuro checks -Neurology following Hypokalemia now resolved after large doses given Hypomagnesemia Replace and recheck Hypophosphatemia Replete Lactic acidosis -Lactic acid on admission 14.10 -on IV Abx -on IVF -continue to monitor DVT PPX -SCds only because coffee ground emesis prognosis guarded Improved, transfer to Telemetry History Interval history: Patient less confused, Non verbal Not eating much Hospitalist Physical - Physical exam Narrative exam: Gen: Not in acute distress, lying in bed HEENT: Normocephalic, atraumatic Neck: supple, no JVD Heart: S1 and S2 reg, no murmurs, rubs or gallop Lungs: Clear to auscultation, no wheeze Abd: soft, non tender, non distended, normal BS, Ext: No edema, no clubbing, no cyanosis Neuro: Lethargic, opens eyes, follows commands, less confused. moves all ext mumbles few words - Constitutional Vitals: Temp Pulse Resp BP Pulse Ox 98.4 F 104 H 17 119/71 100 01/18/19 08:00 01/18/19 11:00 01/18/19 10:01 01/18/19 10:01 01/18/19 10:01 General appearance: Present: no acute distress, other (opens eyes, lying in bed with NGT) Results - Labs CBC & Chem 7: 01/18/19 09:55 01/18/19 04:35 Labs: Laboratory Last Values WBC 4.2 K/mm3 (4.5-11.0) L 01/18/19 09:55 RBC 3.97 M/mm3 (3.65-5.03) 01/18/19 09:55 Hgb 11.4 gm/dl (10.1-14.3) 01/18/19 09:55 Hct 34.0 % (30.3-42.9) 01/18/19 09:55 MCV 86 fl (79-97) 01/18/19 09:55 MCH 29 pg (28-32) 01/18/19 09:55 MCHC 33 % (30-34) 01/18/19 09:55 RDW 15.2 % (13.2-15.2) 01/18/19 09:55 Plt Count 173 K/mm3 (140-440) 01/18/19 09:55 Lymph % (Auto) 10.8 % (13.4-35.0) L 01/14/19 08:22 [place] % (Auto) 7.4 % (0.0-7.3) H 01/14/19 08:22 Eos % (Auto) 0.1 % (0.0-4.3) 01/14/19 08:22 Baso % (Auto) 0.3 % (0.0-1.8) 01/14/19 08:22 Lymph # 0.9 K/mm3 (1.2-5.4) L 01/14/19 08:22 [place] # 0.6 K/mm3 (0.0-0.8) 01/14/19 08:22 Eos # 0.0 K/mm3 (0.0-0.4) 01/14/19 08:22 Baso # 0.0 K/mm3 (0.0-0.1) 01/14/19 08:22 Seg Neutrophils % 81.4 % (40.0-70.0) H 01/14/19 08:22 Seg Neutrophils # 6.5 K/mm3 (1.8-7.7) 01/14/19 08:22 PT 17.6 Sec. (12.2-14.9) H 01/15/19 04:18 INR 1.48 (0.87-1.13) H 01/15/19 04:18 APTT 29.2 Sec. (24.2-36.6) 01/13/19 17:44 POC ABG pH 7.371 (7.35-7.45) 01/13/19 18:03 POC ABG pO2 142 (80-105) H 01/13/19 18:03 POC ABG HCO3 10.6 (22-26 mml/L) 01/13/19 18:03 POC ABG Total CO2 11 (23-27mmol/L) 01/13/19 18:03 POC ABG O2 Sat 99 01/13/19 18:03 POC ABG Base Excess -15 ((-2) - (+3)mmol/L) 01/13/19 18:03 32 % 01/13/19 18:03 Sodium 137 mmol/L (137-145) 01/18/19 04:35 Potassium 5.0 mmol/L (3.6-5.0) D 01/18/19 04:35 Chloride 106.1 mmol/L (98-107) 01/18/19 04:35 Carbon Dioxide 22 mmol/L (22-30) 01/18/19 04:35 14 mmol/L 01/18/19 04:35 BUN 4 mg/dL (7-17) L 01/18/19 04:35 0.4 mg/dL (0.7-1.2) L 01/18/19 04:35 Estimated GFR > 60 ml/min 01/18/19 04:35 10 % 01/18/19 04:35 Glucose 104 mg/dL (65-100) H 01/18/19 04:35 POC Glucose 112 (70-105) H 01/14/19 16:35 Lactic Acid 1.90 mmol/L (0.7-2.0) 01/14/19 16:44 Calcium 8.3 mg/dL (8.4-10.2) L 01/18/19 04:35 Phosphorus 2.30 mg/dL (2.5-4.5) L D 01/18/19 04:35 Magnesium 1.70 mg/dL (1.7-2.3) 01/17/19 04:36 0.60 mg/dL (0.1-1.2) 01/17/19 04:36 AST 59 units/L (5-40) H 01/17/19 04:36 ALT 60 units/L (7-56) H 01/17/19 04:36 91 units/L (35-129) 01/17/19 04:36 30.0 umol/L (25-60) 01/15/19 04:18 296 units/L (91-180) H 01/13/19 15:43 133 units/L (30-135) 01/13/19 15:43 < 0.010 ng/mL (0.00-0.029) 01/14/19 05:19 6.3 g/dL (6.3-8.2) 01/17/19 04:36 3.1 g/dL (3.9-5) L 01/17/19 04:36 1.0 % 01/17/19 04:36 27 units/L (13-60) 01/14/19 10:43 TSH 3.070 mlU/mL (0.270-4.200) 01/13/19 15:43 HCG, Quant < 2 mIU/mL (0-4) 01/13/19 17:44 Peri (Yellow) 01/13/19 16:23 Clear (Clear) 01/13/19 16:23 6.0 (5.0-7.0) 01/13/19 16:[address] [place] [address] 1.027 (1.003-1.030) 01/13/19 16:23 100 mg/dl mg/dL (Negative) 01/13/19 16:23 Neg mg/dL (Negative) 01/13/19 16:23 20 mg/dL (Negative) 01/13/19 16:23 Sm (Negative) 01/13/19 16:23 Neg (Negative) 01/13/19 16:23 Neg (Negative) 01/13/19 16:23 4.0 mg/dL (<2.0) 01/13/19 16:23 Ur Leukocyte Esterase Neg (Negative) 01/13/19 16:23 4.0 /HPF (0.0-6.0) 01/13/19 16:23 1.0 /HPF (0.0-6.0) 01/13/19 16:23 U Epithel Cells (Auto) 1.0 /HPF (0-13.0) 01/13/19 16:23 2+ /HPF 01/13/19 16:23 Salicylates < 0.3 mg/dL (2.8-20.0) L 01/13/19 15:43 Presumptive negative 01/13/19 16:23 Presumptive negative 01/13/19 16:23 Acetaminophen < 5.0 ug/mL (10.0-30.0) L 01/13/19 15:43 Ur Barbiturates Screen Presumptive negative 01/13/19 16:23 Ur Phencyclidine Scrn Presumptive negative 01/13/19 16:23 Ur Amphetamines Screen Presumptive negative 01/13/19 16:23 U Benzodiazepines Scrn Presumptive negative 01/13/19 16:23 Presumptive negative 01/13/19 16:23 U Marijuana (THC) Screen Presumptive negative 01/13/19 16:23 Disclamer 01/13/19 16:23 Plasma/Serum Alcohol < 0.01 % (0-0.07) 01/13/19 15:43 Active Medications - Current Medications Current Medications: Generic Name Dose Route Start Last Admin Trade Name Freq PRN Reason Stop Dose Admin Acetaminophen 650 mg 01/13/19 19:52 Tylenol [place] Q4H PRN Pain, Mild (1-3)/ Fever>100.5 Albuterol 2.5 mg 01/13/19 19:42 Proventil IH Q3HRT PRN Shortness Of Breath Levetiracetam 1,000 mg/ 110 mls @ 400 mls/hr 01/13/19 22:00 01/18/19 10:08 Dextrose IV 400 mls/hr Q12HR JOLIE Administration Dextrose/Sodium Chloride 1,000 mls @ 75 mls/hr 01/16/19 17:00 01/18/19 10:08 D5/0.45ns IV 75 mls/hr DIRECT JOLIE Administration Sodium Phosphate 30 mmol/ 510 mls @ 125 mls/hr 01/18/19 07:26 01/18/19 10:08 Sodium Chloride IV 01/18/19 11:30 125 mls/hr ONCE ONE Administration Lorazepam 2 mg 01/13/19 19:48 01/17/19 21:19 Ativan IV 2 mg Q4H PRN Administration Agitation; seizure Morphine Sulfate 2 mg 01/13/19 19:42 08/04/19 06:01 Morphine IV 2 mg Q4H PRN Administration Pain, Moderate (4-6) Ondansetron HCl 4 mg 01/13/19 19:42 Zofran IV Q8H PRN Nausea And Vomiting Pantoprazole Sodium 40 mg 01/17/19 10:00 01/18/19 10:09 Protonix IV 40 mg QDAY JOLIE Administration Sodium Chloride 10 ml 01/13/19 22:00 01/18/19 10:09 Sodium Chloride Flush Syringe 10 Ml IV 10 ml BID JOLIE Administration Sodium Chloride 10 ml 01/13/19 19:42 Sodium Chloride Flush Syringe 10 Ml IV PRN PRN LINE FLUSH
[2019-01-19 07:30] LABS: BUN/Creatinine Ratio 15; Blood Urea Nitrogen 6 mg/dL (7-17); Calcium 8.8 mg/dL (8.4-10.2); Hemolysis Index 156
[2019-01-19 08:21] LABS: Hematocrit 33.4 % (30.3-42.9); Hemoglobin 11.4 gm/dl (10.1-14.3); Mean Corpuscular HGB Conc 34 % (30-34); Mean Corpuscular Volume 85 fl (79-97); Platelet Count 230 K/mm3 (140-440); Red Blood Count 3.93 M/mm3 (3.65-5.03); Red Cell Distribution Width 14.8 % (13.2-15.2)
[2019-01-19] MEDS: MORPHINE IV PRN ×2 (08:24→21:28)
[2019-01-19] MEDS ORDERED: MAGNESIUM SULFATE 4GM/100ML 4 GM/100 ML BAG IV ONE (09:00)
[2019-01-19] MEDS: D5NS 1,000 ML IV SCH ×2 (10:43→23:58)
[2019-01-19] MEDS: PROTONIX IV SCH (10:48)
[2019-01-19] MEDS: KEPPRA 1,000 MG in D5W 100 ML IV SCH ×2 (10:48→23:47)
[2019-01-19] MEDS: SODIUM CHLORIDE FLUSH SYRINGE 10 ML IV SCH ×2 (12:42→21:34)
[2019-01-19] MEDS ORDERED: SIMPLE SYRUP FEEDTUBE PRN ×2 (14:44)
[2019-01-19] MEDS ORDERED: SODIUM BICARBONATE FEEDTUBE PRN (14:44)
[2019-01-19] MEDS ORDERED: PANCREAZE DR 10,500 UNIT FEEDTUBE PRN (14:44)
--- NOTE | 2019-01-19 15:15 | Progress Note ---
Assessment and Plan Assessment and plan: Patient is 38-year-old female with unknown past medical history presents to [facility] ED via [facility] transportation services with complaints of altered mental status. Patient has been an inmate at [facility] since July of this year. According to EMS patient has been officially released from [facility] as of day of presentation to ED. Review of medical records shows that patient was transferred from [facility] to [facility] for further evaluation of possible dehydration, lethargy, and not verbally responding. At the [facility] she was tachycardic with heart rate of 131 bpm, had coffee ground emesis, and profoundly noted confusion. She was seen and evaluated in ED. She had witnessed seizures in ED, put on Keppra iv. also had coffe ground emesis, encephalopathy, hypokalemia. Also though to have possible sepsis. She was started on iv Antibiotic, iv fluids, Protonix, admitted to [facility]. She was seen by Neurology, GI Physician, ID physician. ID P edyta ruled out sepsis so Antibiotics discontinued. She has SIRS. She was very lethargic, improved but still non verbal, only mumbles. She was seen by neurology. MRI ordered today. Also medical records from nursing home ordered. No family available, baseline unknown SIRS -Patient seen by ID Physician, -Sepsis ruled out -Antibiotics discontinued Cholelithiasis -Seen on CT abdomen and pelvis -no acute infection Upper GI bleed -Patient noted to have coffee-ground emesis on admission -Was NPO, now on Pureed diet -NG tube -Continue Protonix -GI consulted, evaluated patient, signed off H/H stable. No need for EGD Acute hepatic encephalopathy -Hyperammonemia , now resolved --Received lactulose -CT abdomen/pelvis showed normal liver -Continue to monitor hepatic function -Status epilepticus -?? Hx Seizure disorders -Witnessed seizure in ED -Termination of seizure with administration of IV Ativan -IV Ativan prn -IV Keppra 1gm BID -Seizure precautions initiated -Neuro checks -Neurology following Hypokalemia now resolved after large doses given Hypomagnesemia Replace and recheck Hypophosphatemia Replete Lactic acidosis -Lactic acid on admission 14.10 -on IV Abx -on IVF -continue to monitor DVT PPX -SCds only because coffee ground emesis prognosis guarded History Interval history: Patient still non verbal Not eating much Hospitalist Physical - Physical exam Narrative exam: Gen: Not in acute distress, lying in bed HEENT: Normocephalic, atraumatic Neck: supple, no JVD Heart: S1 and S2 reg, no murmurs, rubs or gallop Lungs: Clear to auscultation, no wheeze Abd: soft, non tender, non distended, normal BS, Ext: No edema, no clubbing, no cyanosis Neuro: Lethargic, opens eyes, follows commands, less confused. moves all ext mumbles few words - Constitutional Vitals: Temp Pulse Resp BP Pulse Ox 99.1 F 128 H 18 119/78 99 01/19/19 11:34 01/19/19 11:34 01/19/19 11:34 01/19/19 11:33 01/19/19 11:34 General appearance: Present: no acute distress, other (opens eyes, lying in bed with NGT) Results - Labs CBC & Chem 7: 01/19/19 07:39 01/19/19 05:34 Labs: Laboratory Last Values WBC 5.8 K/mm3 (4.5-11.0) 01/19/19 07:39 RBC 3.93 M/mm3 (3.65-5.03) 01/19/19 07:39 Hgb 11.4 gm/dl (10.1-14.3) 01/19/19 07:39 Hct 33.4 % (30.3-42.9) 01/19/19 07:39 MCV 85 fl (79-97) 01/19/19 07:39 MCH 29 pg (28-32) 01/19/19 07:39 MCHC 34 % (30-34) 01/19/19 07:39 RDW 14.8 % (13.2-15.2) 01/19/19 07:39 Plt Count 230 K/mm3 (140-440) 01/19/19 07:39 Lymph % (Auto) 10.8 % (13.4-35.0) L 01/14/19 08:22 [place] % (Auto) 7.4 % (0.0-7.3) H 01/14/19 08:22 Eos % (Auto) 0.1 % (0.0-4.3) 01/14/19 08:22 Baso % (Auto) 0.3 % (0.0-1.8) 01/14/19 08:22 Lymph # 0.9 K/mm3 (1.2-5.4) L 01/14/19 08:22 [place] # 0.6 K/mm3 (0.0-0.8) 01/14/19 08:22 Eos # 0.0 K/mm3 (0.0-0.4) 01/14/19 08:22 Baso # 0.0 K/mm3 (0.0-0.1) 01/14/19 08:22 Seg Neutrophils % 81.4 % (40.0-70.0) H 01/14/19 08:22 Seg Neutrophils # 6.5 K/mm3 (1.8-7.7) 01/14/19 08:22 PT 17.6 Sec. (12.2-14.9) H 01/15/19 04:18 INR 1.48 (0.87-1.13) H 01/15/19 04:18 APTT 29.2 Sec. (24.2-36.6) 01/13/19 17:44 POC ABG pH 7.371 (7.35-7.45) 01/13/19 18:03 POC ABG pO2 142 (80-105) H 01/13/19 18:03 POC ABG HCO3 10.6 (22-26 mml/L) 01/13/19 18:03 POC ABG Total CO2 11 (23-27mmol/L) 01/13/19 18:03 POC ABG O2 Sat 99 01/13/19 18:03 POC ABG Base Excess -15 ((-2) - (+3)mmol/L) 01/13/19 18:03 32 % 01/13/19 18:03 Sodium 131 mmol/L (137-145) L 01/19/19 05:34 Potassium 4.2 mmol/L (3.6-5.0) 01/19/19 05:34 Chloride 97.0 mmol/L (98-107) L 01/19/19 05:34 Carbon Dioxide 18 mmol/L (22-30) L 01/19/19 05:34 20 mmol/L 01/19/19 05:34 BUN 6 mg/dL (7-17) L 01/19/19 05:34 0.4 mg/dL (0.7-1.2) L 01/19/19 05:34 Estimated GFR > 60 ml/min 01/19/19 05:34 15 % 01/19/19 05:34 Glucose 119 mg/dL (65-100) H 01/19/19 05:34 POC Glucose 117 (70-105) H 01/19/19 09:22 Lactic Acid 1.90 mmol/L (0.7-2.0) 01/14/19 16:44 Calcium 8.8 mg/dL (8.4-10.2) 01/19/19 05:34 Phosphorus 3.20 mg/dL (2.5-4.5) D 01/19/19 05:34 Magnesium 1.40 mg/dL (1.7-2.3) L 01/19/19 05:34 0.60 mg/dL (0.1-1.2) 01/17/19 04:36 AST 59 units/L (5-40) H 01/17/19 04:36 ALT 60 units/L (7-56) H 01/17/19 04:36 91 units/L (35-129) 01/17/19 04:36 30.0 umol/L (25-60) 01/15/19 04:18 296 units/L (91-180) H 01/13/19 15:43 133 units/L (30-135) 01/13/19 15:43 < 0.010 ng/mL (0.00-0.029) 01/14/19 05:19 6.3 g/dL (6.3-8.2) 01/17/19 04:36 3.1 g/dL (3.9-5) L 01/17/19 04:36 1.0 % 01/17/19 04:36 27 units/L (13-60) 01/14/19 10:43 TSH 3.070 mlU/mL (0.270-4.200) 01/13/19 15:43 HCG, Quant < 2 mIU/mL (0-4) 01/13/19 17:44 Peri (Yellow) 01/13/19 16:23 Clear (Clear) 01/13/19 16:23 6.0 (5.0-7.0) 01/13/19 16:23 Ur Specific [place] 1.027 (1.003-1.030) 01/13/19 16:23 100 mg/dl mg/dL (Negative) 01/13/19 16:23 Neg mg/dL (Negative) 01/13/19 16:23 20 mg/dL (Negative) 01/13/19 16:23 Sm (Negative) 01/13/19 16:23 Neg (Negative) 01/13/19 16:23 Neg (Negative) 01/13/19 16:23 4.0 mg/dL (<2.0) 01/13/19 16:23 Ur Leukocyte Esterase Neg (Negative) 01/13/19 16:23 4.0 /HPF (0.0-6.0) 01/13/19 16:23 1.0 /HPF (0.0-6.0) 01/13/19 16:23 U Epithel Cells (Auto) 1.0 /HPF (0-13.0) 01/13/19 16:23 2+ /HPF 01/13/19 16:23 Salicylates < 0.3 mg/dL (2.8-20.0) L 01/13/19 15:43 Presumptive negative 01/13/19 16:23 Presumptive negative 01/13/19 16:23 Acetaminophen < 5.0 ug/mL (10.0-30.0) L 01/13/19 15:43 Ur Barbiturates Screen Presumptive negative 01/13/19 16:23 Ur Phencyclidine Scrn Presumptive negative 01/13/19 16:23 Ur Amphetamines Screen Presumptive negative 01/13/19 16:23 U Benzodiazepines Scrn Presumptive negative 01/13/19 16:23 Presumptive negative 01/13/19 16:23 U Marijuana (THC) Screen Presumptive negative 01/13/19 16:23 Disclamer 01/13/19 16:23 Plasma/Serum Alcohol < 0.01 % (0-0.07) 01/13/19 15:43 Active Medications - Current Medications Current Medications: Generic Name Dose Route Start Last Admin Trade Name Freq PRN Reason Stop Dose Admin Acetaminophen 650 mg 01/13/19 19:52 Tylenol KS Q4H PRN Pain, Mild (1-3)/ Fever>100.5 Albuterol 2.5 mg 01/13/19 19:42 Proventil IH Q3HRT PRN Shortness Of Breath Lipase/Protease/Amylase 1 each 01/19/19 14:44 Pancreaze 10,500 Unit FEEDTUBE PRN PRN For Clogged Feeding Tube Levetiracetam 1,000 mg/ 110 mls @ 400 mls/hr 01/13/19 22:00 01/19/19 10:48 Dextrose IV 400 mls/hr Q12HR JOLIE Administration Dextrose/Sodium Chloride 1,000 mls @ 75 mls/hr 01/19/19 09:00 01/19/19 10:43 D5ns IV 75 mls/hr DIRECT JOLIE Administration Lorazepam 2 mg 01/13/19 19:48 01/17/19 21:19 Ativan IV 2 mg Q4H PRN Administration Agitation; seizure Morphine Sulfate 2 mg 01/13/19 19:42 01/19/19 08:24 Morphine IV 2 mg Q4H PRN Administration Pain, Moderate (4-6) Ondansetron HCl 4 mg 01/13/19 19:42 Zofran IV Q8H PRN Nausea And Vomiting Pantoprazole Sodium 40 mg 01/17/19 10:00 01/19/19 10:48 Protonix IV 40 mg QDAY JOLIE Administration Simple Syrup 15 ml 01/19/19 14:44 Simple Syrup FEEDTUBE PRN PRN Hypoglycemia Simple Syrup 30 ml 01/19/19 14:44 Simple Syrup FEEDTUBE PRN PRN Hypoglycemia Sodium Bicarbonate 325 mg 01/19/19 14:44 Sodium Bicarbonate FEEDTUBE PRN PRN For Clogged Feeding Tube Sodium Chloride 10 ml 01/13/19 22:00 01/19/19 12:42 Sodium Chloride Flush Syringe 10 Ml IV 10 ml BID JOLIE Administration Sodium Chloride 10 ml 01/13/19 19:42 Sodium Chloride Flush Syringe 10 Ml IV PRN PRN LINE FLUSH Nutrition/Malnutrition Assess - Dietary Evaluation Nutrition/Malnutrition Findings: Nutrition Notes Start: 01/18/19 13:22 Freq: Status: Active Protocol: Document 01/19/19 14:30 RM (Rec: 01/19/19 14:43 RM [id number]) Nutrition Notes Initial or Follow up Reassessment Other Pertinent Diagnosis Upper GIB,Coffee ground emesis ,Cholelithiasis,Nonverbal, Status epilepticus Current Diet Pureed Labs/Tests K 4.2 Pertinent Medications Reviewed Height 5 ft 3 in Weight 70.3 kg [place] Body Weight (kg) 52.27 BMI 27.4 Subjective/Other Information Consulted for TF recommendation. Burn Absent Trauma Absent #1 Nutrition Diagnosis Inadequate oral intake Diagnosis Progress(for reassessment Continues documentation) Is patient on ventilator? No Is Patient Ambulatory and/or Out of Bed No REE-([facility]-confined to bed) 7060.292 Calculation Used for Recommendations [facility] Additional Notes Protein Needs: 56-70g (0.8-1g/ kg) Fluid Needs: 1 ml/kcal Nutrition Intervention Nutrition Support: Jevity 1.2 at 55 ml/hr Water flush of 100 ml q 4 hrs Kcal 1,584 Protein (gm) 73 Fluid (mL) 1,065 Goal #1 TF tolerance Goal #2 Meet at least 75% of calorie and protein needs via TF Anticipated Discharge Needs: Unable to determine at this time Follow-Up By: 01/21/19 Additional Comments Follow for TF tolerance
--- NOTE | 2019-01-19 23:43 | XRay Report ---
ABDOMEN 01/13/2019 VIEW(S) INDICATION / CLINICAL INFORMATION: placement of ng tube. COMPARISON: None available. FINDINGS: TUBES / LINES: NG tube is seen with the tip in the region of the body of the stomach. BOWEL GAS PATTERN: No significant abnormality. FREE AIR / EXTRALUMINAL GAS: None seen. ADDITIONAL FINDINGS: No significant additional findings. IMPRESSION: 1. NG tube in stomach Signer Name: Kevin Torres MD Signed: 01/19/2019 11:39 PM Workstation Name: [email or web address]
[2019-01-20] MEDS ORDERED: NARCAN 0.4 MG/1 ML ONE (07:32)
--- NOTE | 2019-01-20 07:46 | Event Note ---
Date: 01/20/19 Kel Ramirez called on patient this am. Patient was found with agonal breathing and with worsening mental status changes, she was not responding to verbal stimuli and bearly to noxious stimuli. Narcan was not effective. Patient intubated by ED doctor on my request for airway protection and transferred to the ICU. [employer] and attending Notified.
[2019-01-20 07:49] LABS: Hematocrit 29.4 % (30.3-42.9); Hemoglobin 10.2 gm/dl (10.1-14.3); Mean Corpuscular HGB Conc 35 % (30-34); Mean Corpuscular Volume 85 fl (79-97); Platelet Count 192 K/mm3 (140-440); Red Blood Count 3.48 M/mm3 (3.65-5.03); Red Cell Distribution Width 14.6 % (13.2-15.2)
--- NOTE | 2019-01-20 07:54 | Event Note ---
Date: 01/20/19 I was called to see this patient secondary to a CODE BLUE being called. When I left the room, the patient had a pulse and there were no chest compressions being administered. However the patient had some bradypnea and agonal breathing. Per the nursing staff, she had decreased mental status and has essentially been nonverbal since she arrived. The hospitalist, Dr. Bolden, was at bedside and asked for the patient to be intubated and she will be transferred to the ICU. Respiratory therapy was also at bedside. The patient was placed on pulse oximetry and was 99%. She was given 40 mg of ketamine and 80 mg of succinylcholine for RSI. A Mac 3 blade, along with a 7.5 ET tube, we used intubated the patient. I had great visualization of the vocal cords. The ET tube was placed through the cords to about 24 cm at the lips and then the bulb was inflated to about 8 mL of air. There was good color change on capnography. There was bilateral breath sounds heard. A post intubation chest x-ray will be obtained. There were no obvious complications from this procedure.
[2019-01-20 08:00] LABS: BUN/Creatinine Ratio 20; Blood Urea Nitrogen 8 mg/dL (7-17)
[2019-01-20 08:01] LABS: Calcium 8.3 mg/dL (8.4-10.2); Hemolysis Index 55
--- NOTE | 2019-01-20 08:05 | XRay Report ---
. CHEST 1 VIEW INDICATION / CLINICAL INFORMATION: TUBE PLACEMENT. COMPARISON: 01/13/2019 FINDINGS: SUPPORT DEVICES: NG tube is now seen extending into the stomach. Endotracheal tube has been placed bu t the tip is low in position in the right mainstem bronchus and the tube needs withdrawn 4-5 cm. HEART / MEDIASTINUM: No significant abnormality. LUNGS / PLEURA: No significant pulmonary or pleural abnormality. No pneumothorax. ADDITIONAL FINDINGS: No significant additional findings. IMPRESSION: 1 Endotracheal tube low in position. The lungs are clear and the NG tube tip is in the stomach. Signer Name: Kevin Torres MD Signed: 01/20/2019 8:01 AM Workstation Name: [id number]
--- NOTE | 2019-01-20 09:49 | Consultation ---
History of Present Illness Consult date: 01/20/19 Requesting physician: JUANA HENSLEY History of present illness: This 38 year old female was transferred from [facility] where she has been since July for altered mental status, seizures. Had lethargy, possible dehydration, decreased speech, coffee ground emesis, possible seizure per notes. Witnessed GTC in ER. NH3 was 157 on admission, now 45. Lipase was 71, now 27. This morning patient was agonal, unresponsive. Code doc was called, patient was intubated by ER and transferred to ICU for ongoing care. I have been consulted for critical care management. Patient was seen and examined. Vitals, labs, medications, chart and imaging reviewed. Past History Past Medical History: other (unable to obtain due to patient's mentation) Past Surgical History: Other (unable to obtain due to patient's mentation) Social history: other (incarcerated from July of this year, has been officially release from incarceration per EMS report) Family history: no significant family history, other (Unable to obtain due to patient's mentation) Medications and Allergies Allergies Allergy/AdvReac Type Severity Reaction Status Date / Time Unable to Assess Allergy Verified 01/14/19 12:37 Home Medications Medication Instructions Recorded Confirmed Last Taken Type No Known Home Medications [No 01/14/19 01/14/19 Unknown History Reported Home Medications] Active Meds: Active Medications Acetaminophen (Tylenol) 650 mg SD Q4H PRN PRN Reason: Pain, Mild (1-3)/ Fever>100.5 Albuterol (Proventil) 2.5 mg IH Q3HRT PRN PRN Reason: Shortness Of Breath Lipase/Protease/Amylase (Abraham Akers 10,500 Unit) 1 each FEEDTUBE PRN PRN PRN Reason: For Clogged Feeding Tube Levetiracetam 1,000 mg/ (Dextrose) 110 mls @ 400 mls/hr IV Q12HR JOLIE Last Admin: 01/19/19 23:47 Dose: 400 mls/hr Documented by: Dextrose/Sodium Chloride (D5ns) 1,000 mls @ 75 mls/hr IV DIRECT JOLIE Last Admin: 01/19/19 23:58 Dose: 75 mls/hr Documented by: Lorazepam (Ativan) 2 mg IV Q4H PRN PRN Reason: Agitation; seizure Last Admin: 01/17/19 21:19 Dose: 2 mg Documented by: Morphine Sulfate (Morphine) 2 mg IV Q4H PRN PRN Reason: Pain, Moderate (4-6) Last Admin: 01/19/19 21:28 Dose: 2 mg Documented by: Ondansetron HCl (Zofran) 4 mg IV Q8H PRN PRN Reason: Nausea And Vomiting Pantoprazole Sodium (Protonix) 40 mg IV QDAY [facility] Last Admin: 01/19/19 10:48 Dose: 40 mg Documented by: Simple Syrup (Simple Syrup) 15 ml FEEDTUBE PRN PRN PRN Reason: Hypoglycemia Simple Syrup (Simple Syrup) 30 ml FEEDTUBE PRN PRN PRN Reason: Hypoglycemia Sodium Bicarbonate (Sodium Bicarbonate) 325 mg FEEDTUBE PRN PRN PRN Reason: For Clogged Feeding Tube Sodium Chloride (Sodium Chloride Flush Syringe 10 Ml) 10 ml IV BID [facility] Last Admin: 01/19/19 21:34 Dose: 10 ml Documented by: Sodium Chloride (Sodium Chloride Flush Syringe 10 Ml) 10 ml IV PRN PRN PRN Reason: LINE FLUSH Physical Examination Vital signs: Vital Signs Pulse Resp 149 H 31 H 01/13/19 15:30 01/13/19 15:30 Vitals reviewed. Constitutional: orally intubated ETT 7.5cm , 19cm at the lip Head, Ears, Nose: Normocephalic, atraumatic. External ears, nose normal Eyes: Conjunctivae/corneas clear. No icterus. No ptosis. Neck: Supple, no meningeal signs Oral: poor dentition Cardiovascular: S1, S2 normal. Normal rhythm Respiratory: Good air entry, clear to auscultation bilaterally GI: Soft, non-tender; bowel sounds normal. No peritoneal signs Musculoskeletal: No pedal edema, Skin: No rash or abscess Hem/Lymphatic: No palpable cervical or supraclavicular nodes. No lymphangitis Psych: no agitation Neurological: Unresponsive Results - Laboratory Findings CBC and BMP: 01/21/19 04:01 01/21/19 04:01 ABG POC ABG pH 7.597 (7.35-7.45) H 01/20/19 09:17 POC ABG pO2 312 (80-105) H 01/20/19 09:17 POC ABG HCO3 23.4 (22-26 mml/L) 01/20/19 09:17 POC ABG Total CO2 24 (23-27mmol/L) 01/20/19 09:17 POC ABG O2 Sat 100 01/20/19 09:17 PT/INR, D-dimer PT 17.6 Sec. (12.2-14.9) H 01/15/19 04:18 INR 1.48 (0.87-1.13) H 01/15/19 04:18 Abnormal lab findings: Abnormal Labs 01/13/19 01/13/19 01/13/19 15:40 15:43 15:43 WBC 13.6 H RBC Hct MCHC Lymph % (Auto) 5.4 L [place] % (Auto) Lymph # 0.7 L Seg Neutrophils % 88.6 H Seg Neutrophils # 12.0 H PT INR POC ABG pH POC ABG pO2 Sodium Potassium 2.8 L* Chloride Carbon Dioxide 9 L* D BUN 23 H Creatinine Glucose 109 H POC Glucose 109 H Lactic Acid Calcium 8.2 L Phosphorus Magnesium Total Bilirubin 1.30 H AST 46 H ALT Ammonia Lactate Dehydrogenase Total Protein Albumin 3.7 L Lipase Salicylates Acetaminophen 01/13/19 01/13/19 01/13/19 15:43 15:43 15:43 WBC RBC Hct MCHC Lymph % (Auto) [place] % (Auto) Lymph # Seg Neutrophils % Seg Neutrophils # PT INR POC ABG pH POC ABG pO2 Sodium Potassium Chloride Carbon Dioxide BUN Creatinine Glucose POC Glucose Lactic Acid 14.10 H* Calcium Phosphorus Magnesium Total Bilirubin AST ALT Ammonia 157.0 H Lactate Dehydrogenase Total Protein Albumin Lipase Salicylates < 0.3 L Acetaminophen 01/13/19 01/13/19 01/13/19 15:43 15:43 17:44 WBC RBC Hct MCHC Lymph % (Auto) [place] % (Auto) Lymph # Seg Neutrophils % Seg Neutrophils # PT 20.1 H INR 1.76 H POC ABG pH POC ABG pO2 Sodium Potassium Chloride Carbon Dioxide BUN Creatinine Glucose POC Glucose Lactic Acid Calcium Phosphorus Magnesium Total Bilirubin AST ALT Ammonia Lactate Dehydrogenase 296 H Total Protein Albumin Lipase 71 H Salicylates Acetaminophen < 5.0 L 01/13/19 01/14/19 01/14/19 18:03 05:19 08:22 WBC RBC 3.61 L Hct MCHC Lymph % (Auto) 10.8 L [place] % (Auto) 7.4 H Lymph # 0.9 L Seg Neutrophils % 81.4 H Seg Neutrophils # PT INR POC ABG pH POC ABG pO2 142 H Sodium Potassium 3.0 L Chloride Carbon Dioxide BUN Creatinine Glucose POC Glucose Lactic Acid Calcium Phosphorus Magnesium 1.50 L Total Bilirubin AST ALT Ammonia Lactate Dehydrogenase Total Protein Albumin Lipase Salicylates Acetaminophen 01/14/19 01/14/19 01/14/19 08:22 08:22 09:49 WBC RBC Hct MCHC Lymph % (Auto) [place] % (Auto) Lymph # Seg Neutrophils % Seg Neutrophils # PT INR POC ABG pH POC ABG pO2 Sodium Potassium 2.3 L* D Chloride Carbon Dioxide 21 L D BUN Creatinine 0.5 L Glucose 60 L POC Glucose Lactic Acid 2.50 H* Calcium 7.4 L Phosphorus Magnesium Total Bilirubin AST ALT Ammonia Lactate Dehydrogenase Total Protein Albumin Lipase Salicylates Acetaminophen 01/14/19 01/14/19 01/14/19 16:35 16:44 22:51 WBC RBC Hct 29.8 L MCHC Lymph % (Auto) [place] % (Auto) Lymph # Seg Neutrophils % Seg Neutrophils # PT INR POC ABG pH POC ABG pO2 Sodium Potassium 2.2 L* Chloride Carbon Dioxide BUN 4 L Creatinine 0.4 L Glucose POC Glucose 112 H Lactic Acid Calcium 7.2 L Phosphorus Magnesium Total Bilirubin AST 74 H ALT Ammonia Lactate Dehydrogenase Total Protein 5.8 L Albumin 3.1 L Lipase Salicylates Acetaminophen 01/15/19 01/15/19 01/15/19 04:18 04:18 04:18 WBC RBC 3.51 L Hct 30.0 L MCHC 36 H Lymph % (Auto) [place] % (Auto) Lymph # Seg Neutrophils % Seg Neutrophils # PT 17.6 H INR 1.48 H POC ABG pH POC ABG pO2 Sodium Potassium 2.6 L* Chloride 94.9 L Carbon Dioxide BUN 3 L Creatinine 0.3 L Glucose 104 H POC Glucose Lactic Acid Calcium 7.4 L Phosphorus Magnesium Total Bilirubin 1.50 H AST 73 H ALT Ammonia Lactate Dehydrogenase Total Protein 5.4 L Albumin 3.3 L Lipase Salicylates Acetaminophen 01/15/19 01/15/19 01/16/19 08:10 15:12 04:37 WBC 3.5 L RBC 3.58 L Hct MCHC Lymph % (Auto) [place] % (Auto) Lymph # Seg Neutrophils % Seg Neutrophils # PT INR POC ABG pH POC ABG pO2 Sodium Potassium 2.5 L* 2.8 L* Chloride Carbon Dioxide BUN Creatinine Glucose POC Glucose Lactic Acid Calcium Phosphorus Magnesium Total Bilirubin AST ALT Ammonia Lactate Dehydrogenase Total Protein Albumin Lipase Salicylates Acetaminophen 01/16/19 01/16/19 01/16/19 04:37 14:52 19:14 WBC RBC Hct MCHC Lymph % (Auto) [place] % (Auto) Lymph # Seg Neutrophils % Seg Neutrophils # PT INR POC ABG pH POC ABG pO2 Sodium Potassium 3.2 L 5.9 H D 3.5 L D Chloride Carbon Dioxide BUN 4 L Creatinine 0.4 L Glucose 134 H POC Glucose Lactic Acid Calcium 7.4 L Phosphorus 1.10 L 2.10 L D Magnesium Total Bilirubin AST 58 H ALT Ammonia Lactate Dehydrogenase Total Protein 5.6 L Albumin 2.8 L Lipase Salicylates Acetaminophen 01/17/19 01/17/19 01/18/19 04:36 04:36 04:35 WBC RBC 3.52 L Hct MCHC 35 H Lymph % (Auto) [place] % (Auto) Lymph # Seg Neutrophils % Seg Neutrophils # PT INR POC ABG pH POC ABG pO2 Sodium Potassium 3.4 L Chloride 107.2 H Carbon Dioxide 19 L BUN 4 L 4 L Creatinine 0.5 L 0.4 L Glucose 146 H 104 H POC Glucose Lactic Acid Calcium 8.1 L 8.3 L Phosphorus 2.30 L D Magnesium Total Bilirubin AST 59 H ALT 60 H Ammonia Lactate Dehydrogenase Total Protein Albumin 3.1 L Lipase Salicylates Acetaminophen 01/18/19 01/19/19 01/19/19 09:55 05:34 09:22 WBC 4.2 L RBC Hct MCHC Lymph % (Auto) [place] % (Auto) Lymph # Seg Neutrophils % Seg Neutrophils # PT INR POC ABG pH POC ABG pO2 Sodium 131 L Potassium Chloride 97.0 L Carbon Dioxide 18 L BUN 6 L Creatinine 0.4 L Glucose 119 H POC Glucose 117 H Lactic Acid Calcium Phosphorus Magnesium 1.40 L Total Bilirubin AST ALT Ammonia Lactate Dehydrogenase Total Protein Albumin Lipase Salicylates Acetaminophen 01/20/19 01/20/19 01/20/19 07:34 07:34 07:35 WBC RBC 3.48 L Hct 29.4 L MCHC 35 H Lymph % (Auto) [place] % (Auto) Lymph # Seg Neutrophils % Seg Neutrophils # PT INR POC ABG pH POC ABG pO2 Sodium 127 L Potassium Chloride 92.9 L Carbon Dioxide BUN Creatinine 0.4 L Glucose 157 H POC Glucose 145 H Lactic Acid Calcium 8.3 L Phosphorus Magnesium Total Bilirubin AST ALT Ammonia Lactate Dehydrogenase Total Protein Albumin Lipase Salicylates Acetaminophen 01/20/19 09:17 WBC RBC Hct MCHC Lymph % (Auto) [place] % (Auto) Lymph # Seg Neutrophils % Seg Neutrophils # PT INR POC ABG pH 7.597 H POC ABG pO2 312 H Sodium Potassium Chloride Carbon Dioxide BUN Creatinine Glucose POC Glucose Lactic Acid Calcium Phosphorus Magnesium Total Bilirubin AST ALT Ammonia Lactate Dehydrogenase Total Protein Albumin Lipase Salicylates Acetaminophen - Diagnostic Findings Chest x-ray: image reviewed Assessment and Plan Acute metabolic/hepatic encephalopathy Acute respiratory failure- hypoxic on MVS SIRS Cholelithiasis Upper GI bleed Status epilepticus Lactic acidosis
--- NOTE | 2019-01-20 10:11 | XRay Report ---
CHEST 1 VIEW INDICATION / CLINICAL INFORMATION: ett placement. COMPARISON: 01/20/2019 at 0746 hours FINDINGS: SUPPORT DEVICES: Endotracheal tube which has been repositioned and is now in good position., Nasogast trent tube HEART / MEDIASTINUM: No significant abnormality. LUNGS / PLEURA: No significant pulmonary or pleural abnormality. No pneumothorax. ADDITIONAL FINDINGS: No significant additional findings. IMPRESSION: ET tube has been repositioned and is now in good position. Signer Name: Jack Barriga MD FACR Signed: 01/20/2019 10:07 AM Workstation Name: [id number]
--- NOTE | 2019-01-20 11:49 | Cat Scan Report ---
CT head/brain wo con INDICATION / CLINICAL INFORMATION: 38 years Female; change in metal status. TECHNIQUE: Routine CT head without contrast. All CT scans at this location are performed using CT dos e reduction for ALARA by means of automated exposure control. COMPARISON: 01/13/2019 FINDINGS: BRAIN / INTRACRANIAL CONTENTS: There is suggestion of symmetric loss of wilson/white differentiation in the posterior frontal lobes bilaterally. This finding may be artifactual, although areas of ischemia cannot be excluded. Diffusion imaging by MRI would be helpful for further evaluation. Otherwise, no acute hemorrhage, mass effect, midline shift, hydrocephalus, or acute, large territoria l infarct. No chronic infarct or focal atrophy. Normal brain volume and ventricular/sulcal size for a ge. No significant white matter abnormality. CRANIOCERVICAL JUNCTION: No significant abnormality. ORBITS: No significant abnormality of visualized orbits. SINUSES / MASTOIDS: No significant abnormality of the visualized paranasal sinuses or mastoid air fransisco ls. ADDITIONAL FINDINGS: None. IMPRESSION: 1. Subtle areas of early ischemia in the posterior frontal lobes cannot be excluded - follow-up with diffusion imaging by MRI, as clinically warranted. 2. Otherwise, no focal mass, hemorrhage, hydrocephalus, or acute, large territorial infarct. Signer Name: Donal Machado MD, III Signed: 01/20/2019 11:45 AM Workstation Name: [email or web address]
[2019-01-20] MEDS ORDERED: NARCAN 0.4 MG/1 ML IV ONE (12:00)
--- NOTE | 2019-01-20 15:13 | Progress Note ---
Assessment and Plan Assessment and plan: Acute hypoxemic respiratory failure. Patient is status post intubation on mechanical ventilation. Pulmonary consult. SIRS -Patient seen by ID Physician, -Sepsis ruled out -Antibiotics discontinued Cholelithiasis -Seen on CT abdomen and pelvis -no acute infection Upper GI bleed -Patient noted to have coffee-ground emesis on admission -Was NPO, now on Pureed diet -NG tube -Continue Protonix -GI consulted, evaluated patient, signed off H/H stable. No need for EGD Acute hepatic encephalopathy -Hyperammonemia , now resolved --Received lactulose -CT abdomen/pelvis showed normal liver -Continue to monitor hepatic function -Status epilepticus -?? Hx Seizure disorders -Witnessed seizure in ED -Termination of seizure with administration of IV Ativan -IV Ativan prn -IV Keppra 1gm BID -Seizure precautions initiated -Neuro checks -Neurology following Hypokalemia now resolved after large doses given Hypomagnesemia Replaced Hypophosphatemia Repleted Lactic acidosis -Lactic acid on admission 14.10 -on IV Abx -on IVF -continue to monitor DVT PPX -SCds only because coffee ground emesis prognosis guarded History Interval history: Patient is 38-year-old female with unknown past medical history presents to [facility] ED via [facility] transportation services with complaints of altered mental status. Patient has been an inmate at [facility] since July of this year. According to EMS patient has been officially released from [facility] as of day of presentation to ED. Review of medical records shows that patient was transferred from [facility] to [facility] for further evaluation of possible dehydration, lethargy, and not verbally responding. At the [facility] she was tachycardic with heart rate of 131 bpm, had coffee ground emesis, and profoundly noted confusion. She was seen and evaluated in ED. She had witnessed seizures in ED, put on Keppra iv. also had coffe ground emesis, encephalopathy, hypokalemia. Also though to have possible sepsis. She was started on iv Antibiotic, iv fluids, Protonix, admitted to IMCU. She was seen by Neurology, GI Physician, ID physician. ID Physician ruled out sepsis so Antibiotics discontinued. She has SIRS. She was very lethargic, reportedly throughout the hospitalization and remained non verbal, with mumbling only. She was seen by neurology. MRI was ordered but no family to consent. Patient had deterioration in her mental status this morning with increased lethargy/somnolence with apnea. Patient was intubated and transferred to the ICU. Hospitalist Physical - Constitutional Vitals: Temp Pulse Resp BP Pulse Ox 99.6 F 124 H 14 122/83 100 01/20/19 08:00 01/20/19 14:00 01/20/19 14:00 01/20/19 14:00 01/20/19 14:00 General appearance: Present: no acute distress, other (intubated on mechanical ventilation.) - EENT Eyes: Present: PERRL, EOM intact ENT: hearing intact, clear oral mucosa, dentition normal - Neck Neck: Present: supple, normal ROM - Respiratory Respiratory effort: normal Respiratory: bilateral: CTA - Cardiovascular Rhythm: regular Heart Sounds: Present: S1 & S2. Absent: gallop, rub - Extremities Extremities: no ischemia, No edema, Full ROM - Abdominal General gastrointestinal: soft, non-tender, non-distended, normal bowel sounds - Integumentary Integumentary: Present: clear, warm, dry - Neurologic Neurologic: other (minimal response to sternal rub/noxious stimuli) Results - Labs CBC & Chem 7: 01/20/19 07:34 01/20/19 07:34 Labs: Laboratory Last Values WBC 5.1 K/mm3 (4.5-11.0) 01/20/19 07:34 RBC 3.48 M/mm3 (3.65-5.03) L 01/20/19 07:34 Hgb 10.2 gm/dl (10.1-14.3) 01/20/19 07:34 Hct 29.4 % (30.3-42.9) L 01/20/19 07:34 MCV 85 fl (79-97) 01/20/19 07:34 MCH 29 pg (28-32) 01/20/19 07:34 MCHC 35 % (30-34) H 01/20/19 07:34 RDW 14.6 % (13.2-15.2) 01/20/19 07:34 Plt Count 192 K/mm3 (140-440) 01/20/19 07:34 Lymph % (Auto) 10.8 % (13.4-35.0) L 01/14/19 08:22 [place] % (Auto) 7.4 % (0.0-7.3) H 01/14/19 08:22 Eos % (Auto) 0.1 % (0.0-4.3) 01/14/19 08:22 Baso % (Auto) 0.3 % (0.0-1.8) 01/14/19 08:22 Lymph # 0.9 K/mm3 (1.2-5.4) L 01/14/19 08:22 [place] # 0.6 K/mm3 (0.0-0.8) 01/14/19 08:22 Eos # 0.0 K/mm3 (0.0-0.4) 01/14/19 08:22 Baso # 0.0 K/mm3 (0.0-0.1) 01/14/19 08:22 Seg Neutrophils % 81.4 % (40.0-70.0) H 01/14/19 08:22 Seg Neutrophils # 6.5 K/mm3 (1.8-7.7) 01/14/19 08:22 PT 17.6 Sec. (12.2-14.9) H 01/15/19 04:18 INR 1.48 (0.87-1.13) H 01/15/19 04:18 APTT 29.2 Sec. (24.2-36.6) 01/13/19 17:44 POC ABG pH 7.597 (7.35-7.45) H 01/20/19 09:17 POC ABG pO2 312 (80-105) H 01/20/19 09:17 POC ABG HCO3 23.4 (22-26 mml/L) 01/20/19 09:17 POC ABG Total CO2 24 (23-27mmol/L) 01/20/19 09:17 POC ABG O2 Sat 100 01/20/19 09:17 POC ABG Base Excess 2 ((-2) - (+3)mmol/L) 01/20/19 09:17 60 % 01/20/19 09:17 Sodium 127 mmol/L (137-145) L 01/20/19 07:34 Potassium 3.6 mmol/L (3.6-5.0) 01/20/19 07:34 Chloride 92.9 mmol/L (98-107) L 01/20/19 07:34 Carbon Dioxide 23 mmol/L (22-30) 01/20/19 07:34 15 mmol/L 01/20/19 07:34 BUN 8 mg/dL (7-17) 01/20/19 07:34 0.4 mg/dL (0.7-1.2) L 01/20/19 07:34 Estimated GFR > 60 ml/min 01/20/19 07:34 20 % 01/20/19 07:34 Glucose 157 mg/dL (65-100) H 01/20/19 07:34 POC Glucose 145 (70-105) H 01/20/19 07:35 Lactic Acid 1.90 mmol/L (0.7-2.0) 01/14/19 16:44 Calcium 8.3 mg/dL (8.4-10.2) L 01/20/19 07:34 Phosphorus 3.20 mg/dL (2.5-4.5) D 01/19/19 05:34 Magnesium 1.90 mg/dL (1.7-2.3) 01/20/19 07:34 0.60 mg/dL (0.1-1.2) 01/17/19 04:36 AST 59 units/L (5-40) H 01/17/19 04:36 ALT 60 units/L (7-56) H 01/17/19 04:36 91 units/L (35-129) 01/17/19 04:36 30.0 umol/L (25-60) 01/15/19 04:18 296 units/L (91-180) H 01/13/19 15:43 133 units/L (30-135) 01/13/19 15:43 < 0.010 ng/mL (0.00-0.029) 01/14/19 05:19 6.3 g/dL (6.3-8.2) 01/17/19 04:36 3.1 g/dL (3.9-5) L 01/17/19 04:36 1.0 % 01/17/19 04:36 27 units/L (13-60) 01/14/19 10:43 TSH 3.070 mlU/mL (0.270-4.200) 01/13/19 15:43 HCG, Quant < 2 mIU/mL (0-4) 01/13/19 17:44 Peri (Yellow) 01/13/19 16:23 Clear (Clear) 01/13/19 16:23 6.0 (5.0-7.0) 01/13/19 16:23 Ur Specific [place] 1.027 (1.003-1.030) 01/13/19 16:23 100 mg/dl mg/dL (Negative) 01/13/19 16:23 Neg mg/dL (Negative) 01/13/19 16:23 20 mg/dL (Negative) 01/13/19 16:23 Sm (Negative) 01/13/19 16:23 Neg (Negative) 01/13/19 16:23 Neg (Negative) 01/13/19 16:23 4.0 mg/dL (<2.0) 01/13/19 16:23 Ur Leukocyte Esterase Neg (Negative) 01/13/19 16:23 4.0 /HPF (0.0-6.0) 01/13/19 16:23 1.0 /HPF (0.0-6.0) 01/13/19 16:23 U Epithel Cells (Auto) 1.0 /HPF (0-13.0) 01/13/19 16:23 2+ /HPF 01/13/19 16:23 Salicylates < 0.3 mg/dL (2.8-20.0) L 01/13/19 15:43 Presumptive negative 01/13/19 16:23 Presumptive negative 01/13/19 16:23 Acetaminophen < 5.0 ug/mL (10.0-30.0) L 01/13/19 15:43 Ur Barbiturates Screen Presumptive negative 01/13/19 16:23 Ur Phencyclidine Scrn Presumptive negative 01/13/19 16:23 Ur Amphetamines Screen Presumptive negative 01/13/19 16:23 U Benzodiazepines Scrn Presumptive negative 01/13/19 16:23 Presumptive negative 01/13/19 16:23 U Marijuana (THC) Screen Presumptive negative 01/13/19 16:23 Disclamer 01/13/19 16:23 Plasma/Serum Alcohol < 0.01 % (0-0.07) 01/13/19 15:43 Active Medications - Current Medications Current Medications: Generic Name Dose Route Start Last Admin Trade Name Freq PRN Reason Stop Dose Admin Acetaminophen 650 mg 01/13/19 19:52 Tylenol MN Q4H PRN Pain, Mild (1-3)/ Fever>100.5 Albuterol 2.5 mg 01/13/19 19:42 Proventil IH Q3HRT PRN Shortness Of Breath Lipase/Protease/Amylase 1 each 01/19/19 14:44 Pancreaze 10,500 Unit FEEDTUBE PRN PRN For Clogged Feeding Tube Levetiracetam 1,000 mg/ 110 mls @ 400 mls/hr 01/13/19 22:00 01/19/19 23:47 Dextrose IV 400 mls/hr Q12HR JOLIE Administration Dextrose/Sodium Chloride 1,000 mls @ 75 mls/hr 01/19/19 09:00 01/19/19 23:58 D5ns IV 75 mls/hr DIRECT JOLIE Administration Lorazepam 2 mg 01/13/19 19:48 01/17/19 21:19 Ativan IV 2 mg Q4H PRN Administration Agitation; seizure Morphine Sulfate 2 mg 01/13/19 19:42 01/19/19 21:28 Morphine IV 2 mg Q4H PRN Administration Pain, Moderate (4-6) Ondansetron HCl 4 mg 01/13/19 19:42 Zofran IV Q8H PRN Nausea And Vomiting Pantoprazole Sodium 40 mg 01/17/19 10:00 01/19/19 10:48 Protonix IV 40 mg QDAY JOLIE Administration Simple Syrup 15 ml 01/19/19 14:44 Simple Syrup FEEDTUBE PRN PRN Hypoglycemia Simple Syrup 30 ml 01/19/19 14:44 Simple Syrup FEEDTUBE PRN PRN Hypoglycemia Sodium Bicarbonate 325 mg 01/19/19 14:44 Sodium Bicarbonate FEEDTUBE PRN PRN For Clogged Feeding Tube Sodium Chloride 10 ml 01/13/19 22:00 01/19/19 21:34 Sodium Chloride Flush Syringe 10 Ml IV 10 ml BID JOLIE Administration Sodium Chloride 10 ml 01/13/19 19:42 Sodium Chloride Flush Syringe 10 Ml IV PRN PRN LINE FLUSH Nutrition/Malnutrition Assess - Dietary Evaluation Nutrition/Malnutrition Findings: Nutrition Notes Start: 01/18/19 13:22 Freq: Status: Active Protocol: Document 01/19/19 14:30 RM (Rec: 01/19/19 14:43 RM [id number]) Nutrition Notes Initial or Follow up Reassessment Other Pertinent Diagnosis Upper GIB,Coffee ground emesis ,Cholelithiasis,Nonverbal, Status epilepticus Current Diet Pureed Labs/Tests K 4.2 Pertinent Medications Reviewed Height 5 ft 3 in Weight 70.3 kg [place] Body Weight (kg) 52.27 BMI 27.4 Subjective/Other Information Consulted for TF recommendation. Burn Absent Trauma Absent #1 Nutrition Diagnosis Inadequate oral intake Diagnosis Progress(for reassessment Continues documentation) Is patient on ventilator? No Is Patient Ambulatory and/or Out of Bed No REE-([facility]-confined to bed) 2681.061 Calculation Used for Recommendations [facility] Additional Notes Protein Needs: 56-70g (0.8-1g/ kg) Fluid Needs: 1 ml/kcal Nutrition Intervention Nutrition Support: Jevity 1.2 at 55 ml/hr Water flush of 100 ml q 4 hrs Kcal 1,584 Protein (gm) 73 Fluid (mL) 1,065 Goal #1 TF tolerance Goal #2 Meet at least 75% of calorie and protein needs via TF Anticipated Discharge Needs: Unable to determine at this time Follow-Up By: 01/21/19 Additional Comments Follow for TF tolerance
[2019-01-20] MEDS: KEPPRA 1,000 MG in D5W 100 ML IV SCH ×2 (15:48→21:11)
[2019-01-20] MEDS: PROTONIX IV SCH (15:48)
[2019-01-20] MEDS: SODIUM CHLORIDE FLUSH SYRINGE 10 ML IV SCH ×2 (15:48→21:11)
--- NOTE | 2019-01-20 16:08 | XRay Report ---
ABDOMEN 1 VIEW(S) INDICATION / CLINICAL INFORMATION: NGT placement confirmation post intubation. COMPARISON: 01/19/2019 FINDINGS: TUBES / LINES: A nasogastric tube terminates in the fundus of the stomach. BOWEL GAS PATTERN: No significant abnormality. FREE AIR / EXTRALUMINAL GAS: None seen. ADDITIONAL FINDINGS: No significant additional findings. IMPRESSION: No significant abnormality. The nasogastric tube terminates in the fundus of the stomach. Signer Name: Gareth Mehta Jr, MD Signed: 01/20/2019 4:03 PM Workstation Name: [id number]
[2019-01-20] MEDS: D5NS 1,000 ML IV SCH (16:52)
[2019-01-20] MEDS: ATIVAN IV PRN (17:48)
[2019-01-20] MEDS ORDERED: KETALAR ONE (22:53)
[2019-01-20] MEDS ORDERED: QUELICIN ONE (22:53)
[2019-01-21 04:37] LABS: BUN/Creatinine Ratio 30; Blood Urea Nitrogen 9 mg/dL (7-17); Calcium 7.7 mg/dL (8.4-10.2); Hemolysis Index 19
[2019-01-21 04:54] LABS: Hematocrit 26.5 % (30.3-42.9); Hemoglobin 9.3 gm/dl (10.1-14.3); Red Blood Count 3.12 M/mm3 (3.65-5.03)
[2019-01-21 04:55] LABS: Basophils % (Auto) 0.4 % (0.0-1.8); Eosinophils % (Auto) 0.2 % (0.0-4.3); Lymphocytes % (Auto) 13.9 % (13.4-35.0); Mean Corpuscular HGB Conc 35 % (30-34); Mean Corpuscular Volume 85 fl (79-97); Mean Platelet Volume 8.3 fl (6-12); Monocytes # (Auto) 0.4 K/mm3 (0.0-0.8); Platelet Count 147 K/mm3 (140-440); Red Cell Distribution Width 14.3 % (13.2-15.2)
[2019-01-21] MEDS: D5NS 1,000 ML IV SCH (06:12)
--- NOTE | 2019-01-21 08:28 | Progress Note ---
Assessment and Plan Acute metabolic/hepatic encephalopathy Acute respiratory failure- hypoxic on MVS SIRS Cholelithiasis Upper GI bleed Status epilepticus Lactic acidosis Subjective Date of service: 01/21/19 Principal diagnosis: seizures Objective Vital Signs - 12hr 01/20/19 01/20/19 01/20/19 21:00 21:40 22:00 Temperature Pulse Rate 125 H 127 H 119 H Pulse Rate [ 121 H From Monitor] Respiratory 14 14 14 Rate Blood Pressure 106/71 111/68 O2 Sat by Pulse 96 100 83 L Oximetry 01/20/19 01/20/19 01/20/19 22:59 23:00 23:14 Temperature Pulse Rate 120 H 120 H 121 H Pulse Rate [ From Monitor] Respiratory 14 14 14 Rate Blood Pressure 110/71 118/75 118/75 O2 Sat by Pulse 100 100 100 Oximetry 01/20/19 01/20/19 01/21/19 23:15 23:30 00:00 Temperature 99.1 F Pulse Rate 127 H 121 H Pulse Rate [ 121 H From Monitor] Respiratory 14 14 Rate Blood Pressure 103/62 O2 Sat by Pulse 100 100 Oximetry 01/21/19 01/21/19 01/21/19 00:14 00:50 01:00 Temperature Pulse Rate 121 H 122 H 121 H Pulse Rate [ 120 H From Monitor] Respiratory 14 14 Rate Blood Pressure 110/65 101/63 O2 Sat by Pulse 100 100 100 Oximetry 01/21/19 01/21/19 01/21/19 01:12 02:00 02:30 Temperature Pulse Rate 121 H 118 H Pulse Rate [ 119 H From Monitor] Respiratory 14 14 14 Rate Blood Pressure 103/65 O2 Sat by Pulse 100 100 100 Oximetry 01/21/19 01/21/19 01/21/19 03:00 03:21 03:45 Temperature Pulse Rate 118 H 119 H 119 H Pulse Rate [ 119 H From Monitor] Respiratory 14 14 Rate Blood Pressure 108/63 108/63 O2 Sat by Pulse 100 100 100 Oximetry 01/21/19 01/21/19 01/21/19 04:00 04:26 05:00 Temperature 99.0 F Pulse Rate 117 H 119 H 116 H Pulse Rate [ 119 H From Monitor] Respiratory 14 14 14 Rate Blood Pressure 93/69 111/73 O2 Sat by Pulse 99 100 100 Oximetry 01/21/19 01/21/19 01/21/19 05:26 06:00 06:37 Temperature Pulse Rate 116 H 115 H 115 H Pulse Rate [ From Monitor] Respiratory 14 14 Rate Blood Pressure 117/81 109/66 O2 Sat by Pulse 100 100 100 Oximetry 01/21/19 01/21/19 07:20 08:00 Temperature 98.1 F Pulse Rate 115 H Pulse Rate [ From Monitor] Respiratory 1 L Rate Blood Pressure 114/69 O2 Sat by Pulse 100 Oximetry CBC and BMP: 01/21/19 04:01 01/21/19 04:01 ABG, PT/INR, D-dimer: ABG POC ABG pH 7.444 (7.35-7.45) 01/21/19 05:35 POC ABG pCO2 31.9 (35-45) L 01/21/19 05:35 POC ABG pO2 131 (80-105) H 01/21/19 05:35 POC ABG HCO3 21.8 (22-26 mml/L) 01/21/19 05:35 POC ABG Total CO2 23 (23-27mmol/L) 01/21/19 05:35 POC ABG O2 Sat 99 01/21/19 05:35 PT/INR, D-dimer PT 17.6 Sec. (12.2-14.9) H 01/15/19 04:18 INR 1.48 (0.87-1.13) H 01/15/19 04:18 Abnormal lab findings: Abnormal Labs 01/13/19 01/13/19 01/13/19 15:40 15:43 15:43 WBC 13.6 H RBC Hgb Hct MCHC Lymph % (Auto) 5.4 L [place] % (Auto) Lymph # 0.7 L Seg Neutrophils % 88.6 H Seg Neutrophils # 12.0 H PT INR POC ABG pH POC ABG pCO2 POC ABG pO2 Sodium Potassium 2.8 L* Chloride Carbon Dioxide 9 L* D BUN 23 H Creatinine Glucose 109 H POC Glucose 109 H Lactic Acid Calcium 8.2 L Phosphorus Magnesium Total Bilirubin 1.30 H AST 46 H ALT Ammonia Lactate Dehydrogenase Total Protein Albumin 3.7 L Lipase Salicylates Acetaminophen 01/13/19 01/13/19 01/13/19 15:43 15:43 15:43 WBC RBC Hgb Hct MCHC Lymph % (Auto) [place] % (Auto) Lymph # Seg Neutrophils % Seg Neutrophils # PT INR POC ABG pH POC ABG pCO2 POC ABG pO2 Sodium Potassium Chloride Carbon Dioxide BUN Creatinine Glucose POC Glucose Lactic Acid 14.10 H* Calcium Phosphorus Magnesium Total Bilirubin AST ALT Ammonia 157.0 H Lactate Dehydrogenase Total Protein Albumin Lipase Salicylates < 0.3 L Acetaminophen 01/13/19 01/13/19 01/13/19 15:43 15:43 17:44 WBC RBC Hgb Hct MCHC Lymph % (Auto) [place] % (Auto) Lymph # Seg Neutrophils % Seg Neutrophils # PT 20.1 H INR 1.76 H POC ABG pH POC ABG pCO2 POC ABG pO2 Sodium Potassium Chloride Carbon Dioxide BUN Creatinine Glucose POC Glucose Lactic Acid Calcium Phosphorus Magnesium Total Bilirubin AST ALT Ammonia Lactate Dehydrogenase 296 H Total Protein Albumin Lipase 71 H Salicylates Acetaminophen < 5.0 L 01/13/19 01/14/19 01/14/19 18:03 05:19 08:22 WBC RBC 3.61 L Hgb Hct MCHC Lymph % (Auto) 10.8 L [place] % (Auto) 7.4 H Lymph # 0.9 L Seg Neutrophils % 81.4 H Seg Neutrophils # PT INR POC ABG pH POC ABG pCO2 POC ABG pO2 142 H Sodium Potassium 3.0 L Chloride Carbon Dioxide BUN Creatinine Glucose POC Glucose Lactic Acid Calcium Phosphorus Magnesium 1.50 L Total Bilirubin AST ALT Ammonia Lactate Dehydrogenase Total Protein Albumin Lipase Salicylates Acetaminophen 01/14/19 01/14/19 01/14/19 08:22 08:22 09:49 WBC RBC Hgb Hct MCHC Lymph % (Auto) [place] % (Auto) Lymph # Seg Neutrophils % Seg Neutrophils # PT INR POC ABG pH POC ABG pCO2 POC ABG pO2 Sodium Potassium 2.3 L* D Chloride Carbon Dioxide 21 L D BUN Creatinine 0.5 L Glucose 60 L POC Glucose Lactic Acid 2.50 H* Calcium 7.4 L Phosphorus Magnesium Total Bilirubin AST ALT Ammonia Lactate Dehydrogenase Total Protein Albumin Lipase Salicylates Acetaminophen 01/14/19 01/14/19 01/14/19 16:35 16:44 22:51 WBC RBC Hgb Hct 29.8 L MCHC Lymph % (Auto) [place] % (Auto) Lymph # Seg Neutrophils % Seg Neutrophils # PT INR POC ABG pH POC ABG pCO2 POC ABG pO2 Sodium Potassium 2.2 L* Chloride Carbon Dioxide BUN 4 L Creatinine 0.4 L Glucose POC Glucose 112 H Lactic Acid Calcium 7.2 L Phosphorus Magnesium Total Bilirubin AST 74 H ALT Ammonia Lactate Dehydrogenase Total Protein 5.8 L Albumin 3.1 L Lipase Salicylates Acetaminophen 01/15/19 01/15/19 01/15/19 04:18 04:18 04:18 WBC RBC 3.51 L Hgb Hct 30.0 L MCHC 36 H Lymph % (Auto) [place] % (Auto) Lymph # Seg Neutrophils % Seg Neutrophils # PT 17.6 H INR 1.48 H POC ABG pH POC ABG pCO2 POC ABG pO2 Sodium Potassium 2.6 L* Chloride 94.9 L Carbon Dioxide BUN 3 L Creatinine 0.3 L Glucose 104 H POC Glucose Lactic Acid Calcium 7.4 L Phosphorus Magnesium Total Bilirubin 1.50 H AST 73 H ALT Ammonia Lactate Dehydrogenase Total Protein 5.4 L Albumin 3.3 L Lipase Salicylates Acetaminophen 01/15/19 01/15/19 01/16/19 08:10 15:12 04:37 WBC 3.5 L RBC 3.58 L Hgb Hct MCHC Lymph % (Auto) [place] % (Auto) Lymph # Seg Neutrophils % Seg Neutrophils # PT INR POC ABG pH POC ABG pCO2 POC ABG pO2 Sodium Potassium 2.5 L* 2.8 L* Chloride Carbon Dioxide BUN Creatinine Glucose POC Glucose Lactic Acid Calcium Phosphorus Magnesium Total Bilirubin AST ALT Ammonia Lactate Dehydrogenase Total Protein Albumin Lipase Salicylates Acetaminophen 01/16/19 01/16/19 01/16/19 04:37 14:52 19:14 WBC RBC Hgb Hct MCHC Lymph % (Auto) [place] % (Auto) Lymph # Seg Neutrophils % Seg Neutrophils # PT INR POC ABG pH POC ABG pCO2 POC ABG pO2 Sodium Potassium 3.2 L 5.9 H D 3.5 L D Chloride Carbon Dioxide BUN 4 L Creatinine 0.4 L Glucose 134 H POC Glucose Lactic Acid Calcium 7.4 L Phosphorus 1.10 L 2.10 L D Magnesium Total Bilirubin AST 58 H ALT Ammonia Lactate Dehydrogenase Total Protein 5.6 L Albumin 2.8 L Lipase Salicylates Acetaminophen 01/17/19 01/17/19 01/18/19 04:36 04:36 04:35 WBC RBC 3.52 L Hgb Hct MCHC 35 H Lymph % (Auto) [place] % (Auto) Lymph # Seg Neutrophils % Seg Neutrophils # PT INR POC ABG pH POC ABG pCO2 POC ABG pO2 Sodium Potassium 3.4 L Chloride 107.2 H Carbon Dioxide 19 L BUN 4 L 4 L Creatinine 0.5 L 0.4 L Glucose 146 H 104 H POC Glucose Lactic Acid Calcium 8.1 L 8.3 L Phosphorus 2.30 L D Magnesium Total Bilirubin AST 59 H ALT 60 H Ammonia Lactate Dehydrogenase Total Protein Albumin 3.1 L Lipase Salicylates Acetaminophen 01/18/19 01/19/19 01/19/19 09:55 05:34 09:22 WBC 4.2 L RBC Hgb Hct MCHC Lymph % (Auto) [place] % (Auto) Lymph # Seg Neutrophils % Seg Neutrophils # PT INR POC ABG pH POC ABG pCO2 POC ABG pO2 Sodium 131 L Potassium Chloride 97.0 L Carbon Dioxide 18 L BUN 6 L Creatinine 0.4 L Glucose 119 H POC Glucose 117 H Lactic Acid Calcium Phosphorus Magnesium 1.40 L Total Bilirubin AST ALT Ammonia Lactate Dehydrogenase Total Protein Albumin Lipase Salicylates Acetaminophen 01/20/19 01/20/19 01/20/19 07:34 07:34 07:35 WBC RBC 3.48 L Hgb Hct 29.4 L MCHC 35 H Lymph % (Auto) [place] % (Auto) Lymph # Seg Neutrophils % Seg Neutrophils # PT INR POC ABG pH POC ABG pCO2 POC ABG pO2 Sodium 127 L Potassium Chloride 92.9 L Carbon Dioxide BUN Creatinine 0.4 L Glucose 157 H POC Glucose 145 H Lactic Acid Calcium 8.3 L Phosphorus Magnesium Total Bilirubin AST ALT Ammonia Lactate Dehydrogenase Total Protein Albumin Lipase Salicylates Acetaminophen 01/20/19 01/20/19 01/20/19 09:17 11:52 18:40 WBC RBC Hgb Hct MCHC Lymph % (Auto) [place] % (Auto) Lymph # Seg Neutrophils % Seg Neutrophils # PT INR POC ABG pH 7.597 H POC ABG pCO2 POC ABG pO2 312 H Sodium Potassium Chloride Carbon Dioxide BUN Creatinine Glucose POC Glucose 133 H 157 H Lactic Acid Calcium Phosphorus Magnesium Total Bilirubin AST ALT Ammonia Lactate Dehydrogenase Total Protein Albumin Lipase Salicylates Acetaminophen 01/20/19 01/20/19 01/21/19 21:25 22:44 03:30 WBC RBC Hgb Hct MCHC Lymph % (Auto) [place] % (Auto) Lymph # Seg Neutrophils % Seg Neutrophils # PT INR POC ABG pH 7.513 H POC ABG pCO2 POC ABG pO2 171 H Sodium Potassium Chloride Carbon Dioxide BUN Creatinine Glucose POC Glucose 174 H Lactic Acid Calcium Phosphorus Magnesium Total Bilirubin AST ALT Ammonia 66.0 H Lactate Dehydrogenase Total Protein Albumin Lipase Salicylates Acetaminophen 01/21/19 01/21/19 01/21/19 04:01 04:01 05:35 WBC RBC 3.12 L Hgb 9.3 L Hct 26.5 L MCHC 35 H Lymph % (Auto) [place] % (Auto) Lymph # 1.0 L Seg Neutrophils % 80.5 H Seg Neutrophils # PT INR POC ABG pH POC ABG pCO2 31.9 L POC ABG pO2 131 H Sodium 129 L Potassium Chloride 95.8 L Carbon Dioxide 21 L BUN Creatinine 0.3 L Glucose 145 H POC Glucose Lactic Acid Calcium 7.7 L Phosphorus Magnesium Total Bilirubin AST ALT Ammonia Lactate Dehydrogenase Total Protein Albumin Lipase Salicylates Acetaminophen 01/21/19 07:44 WBC RBC Hgb Hct MCHC Lymph % (Auto) [place] % (Auto) Lymph # Seg Neutrophils % Seg Neutrophils # PT INR POC ABG pH POC ABG pCO2 POC ABG pO2 Sodium Potassium Chloride Carbon Dioxide BUN Creatinine Glucose POC Glucose 153 H Lactic Acid Calcium Phosphorus Magnesium Total Bilirubin AST ALT Ammonia Lactate Dehydrogenase Total Protein Albumin Lipase Salicylates Acetaminophen
[2019-01-21] MEDS: KEPPRA 1,000 MG in D5W 100 ML IV SCH (10:13)
[2019-01-21] MEDS: CEPHULAC PO SCH ×3 (10:13→14:25)
[2019-01-21] MEDS: PREVACID SOLUTAB FEEDTUBE SCH (10:13)
[2019-01-21] MEDS: LOVENOX SUB-Q SCH (10:13)
[2019-01-21] MEDS: SODIUM CHLORIDE FLUSH SYRINGE 10 ML IV SCH (10:14)
--- NOTE | 2019-01-21 13:58 | Progress Note ---
Assessment and Plan Assessment and plan: Acute hypoxemic respiratory failure. Patient is status post intubation on mechanical ventilation. Pulmonary consult. SIRS -ID following, -Sepsis ruled out -Antibiotics discontinued Cholelithiasis -Seen on CT abdomen and pelvis -no acute infection Upper GI bleed -Patient noted to have coffee-ground emesis on admission -Was NPO, now on Pureed diet -NG tube -Continue Protonix -GI consulted, evaluated patient, signed off H/H stable. No need for EGD Acute toxic/metabolic/hepatic encephalopathy -Received lactulose -CT abdomen/pelvis showed normal liver -Continue to monitor hepatic function -Recheck ammonia levels -Status epilepticus -?? Hx Seizure disorders -IV Ativan prn -IV Keppra 1gm BID -Seizure precautions initiated -Neuro checks -Neurology following Hypokalemia now resolved after large doses given Hypomagnesemia Replaced Hypophosphatemia Repleted Lactic acidosis -Lactic acid on admission 14.10 -on IV Abx -on IVF -continue to monitor DVT PPX -SCds only because coffee ground emesis prognosis guarded History Interval history: Patient is 38-year-old female with unknown past medical history presents to [facility] ED via [facility] transportation services with complaints of altered mental status. Patient has been an inmate at [facility] since July of this year. According to EMS patient has been officially released from [facility] as of day of presentation to ED. Review of medical records shows that patient was transferred from [facility] to [facility] for further evaluation of possible dehydration, lethargy, and not verbally responding. At the [facility] she was tachycardic with heart rate of 131 bpm, had coffee ground emesis, and profoundly noted confusion. She was seen and evaluated in ED. She had witnessed seizures in ED, put on Keppra iv. also had coffe ground emesis, encephalopathy, hypokalemia. Also though to have possible sepsis. She was started on iv Antibiotic, iv fluids, Protonix, admitted to IMCU. She was seen by Neurology, GI Physician, ID physician. ID P edyta ruled out sepsis so Antibiotics discontinued. She has SIRS. She was very lethargic, reportedly throughout the hospitalization and remained non verbal, with mumbling only. She was seen by neurology. MRI was ordered but no family to consent. Patient had deterioration in her mental status this morning with increased lethargy/somnolence with apnea. Patient was intubated and transferred to the ICU. Hospitalist Physical - Constitutional Vitals: Temp Pulse Resp BP Pulse Ox 98.9 F 113 H 17 104/66 100 01/21/19 12:00 01/21/19 12:15 01/21/19 12:15 01/21/19 12:15 01/21/19 12:15 General appearance: Present: no acute distress, other (intubated on mechanical ventilation.) - EENT Eyes: Present: PERRL, EOM intact ENT: hearing intact, clear oral mucosa, dentition normal - Neck Neck: Present: supple, normal ROM - Respiratory Respiratory effort: normal Respiratory: bilateral: CTA - Cardiovascular Rhythm: regular Heart Sounds: Present: S1 & S2. Absent: gallop, rub - Extremities Extremities: no ischemia, No edema, Full ROM - Abdominal General gastrointestinal: soft, non-tender, non-distended, normal bowel sounds - Integumentary Integumentary: Present: clear, warm, dry - Neurologic Neurologic: CNII-XII intact, moves all extremities Results - Labs CBC & Chem 7: 01/21/19 04:01 01/21/19 04:01 Labs: Laboratory Last Values WBC 7.4 K/mm3 (4.5-11.0) 01/21/19 04:01 RBC 3.12 M/mm3 (3.65-5.03) L 01/21/19 04:01 Hgb 9.3 gm/dl (10.1-14.3) L 01/21/19 04:01 Hct 26.5 % (30.3-42.9) L 01/21/19 04:01 MCV 85 fl (79-97) 01/21/19 04:01 MCH 30 pg (28-32) 01/21/19 04:01 MCHC 35 % (30-34) H 01/21/19 04:01 RDW 14.3 % (13.2-15.2) 01/21/19 04:01 Plt Count 147 K/mm3 (140-440) 01/21/19 04:01 Lymph % (Auto) 13.9 % (13.4-35.0) 01/21/19 04:01 [place] % (Auto) 5.0 % (0.0-7.3) 01/21/19 04:01 Eos % (Auto) 0.2 % (0.0-4.3) 01/21/19 04:01 Baso % (Auto) 0.4 % (0.0-1.8) 01/21/19 04:01 Lymph # 1.0 K/mm3 (1.2-5.4) L 01/21/19 04:01 [place] # 0.4 K/mm3 (0.0-0.8) 01/21/19 04:01 Eos # 0.0 K/mm3 (0.0-0.4) 01/21/19 04:01 Baso # 0.0 K/mm3 (0.0-0.1) 01/21/19 04:01 Seg Neutrophils % 80.5 % (40.0-70.0) H 01/21/19 04:01 Seg Neutrophils # 5.9 K/mm3 (1.8-7.7) 01/21/19 04:01 PT 17.6 Sec. (12.2-14.9) H 01/15/19 04:18 INR 1.48 (0.87-1.13) H 01/15/19 04:18 APTT 29.2 Sec. (24.2-36.6) 01/13/19 17:44 POC ABG pH 7.444 (7.35-7.45) 01/21/19 05:35 POC ABG pCO2 31.9 (35-45) L 01/21/19 05:35 POC ABG pO2 131 (80-105) H 01/21/19 05:35 POC ABG HCO3 21.8 (22-26 mml/L) 01/21/19 05:35 POC ABG Total CO2 23 (23-27mmol/L) 01/21/19 05:35 POC ABG O2 Sat 99 01/21/19 05:35 POC ABG Base Excess -2 ((-2) - (+3)mmol/L) 01/21/19 05:35 30 % 01/21/19 05:35 Sodium 129 mmol/L (137-145) L 01/21/19 04:01 Potassium 3.8 mmol/L (3.6-5.0) 01/21/19 04:01 Chloride 95.8 mmol/L (98-107) L 01/21/19 04:01 Carbon Dioxide 21 mmol/L (22-30) L 01/21/19 04:01 16 mmol/L 01/21/19 04:01 BUN 9 mg/dL (7-17) 01/21/19 04:01 0.3 mg/dL (0.7-1.2) L 01/21/19 04:01 Estimated GFR > 60 ml/min 01/21/19 04:01 30 % 01/21/19 04:01 Glucose 145 mg/dL (65-100) H 01/21/19 04:01 POC Glucose 176 (70-105) H 01/21/19 11:30 Lactic Acid 1.90 mmol/L (0.7-2.0) 01/14/19 16:44 Calcium 7.7 mg/dL (8.4-10.2) L 01/21/19 04:01 Phosphorus 3.20 mg/dL (2.5-4.5) D 01/19/19 05:34 Magnesium 1.90 mg/dL (1.7-2.3) 01/20/19 07:34 0.60 mg/dL (0.1-1.2) 01/17/19 04:36 AST 59 units/L (5-40) H 01/17/19 04:36 ALT 60 units/L (7-56) H 01/17/19 04:36 91 units/L (35-129) 01/17/19 04:36 66.0 umol/L (25-60) H 01/20/19 22:44 296 units/L (91-180) H 01/13/19 15:43 133 units/L (30-135) 01/13/19 15:43 < 0.010 ng/mL (0.00-0.029) 01/14/19 05:19 6.3 g/dL (6.3-8.2) 01/17/19 04:36 3.1 g/dL (3.9-5) L 01/17/19 04:36 1.0 % 01/17/19 04:36 27 units/L (13-60) 01/14/19 10:43 TSH 3.070 mlU/mL (0.270-4.200) 01/13/19 15:43 HCG, Quant < 2 mIU/mL (0-4) 01/13/19 17:44 Peri (Yellow) 01/13/19 16:23 Clear (Clear) 01/13/19 16:23 6.0 (5.0-7.0) 01/13/19 16:23 Ur Specific [place]ard 1.027 (1.003-1.030) 01/13/19 16:23 100 mg/dl mg/dL (Negative) 01/13/19 16:23 Neg mg/dL (Negative) 01/13/19 16:23 20 mg/dL (Negative) 01/13/19 16:23 Sm (Negative) 01/13/19 16:23 Neg (Negative) 01/13/19 16:23 Neg (Negative) 01/13/19 16:23 4.0 mg/dL (<2.0) 01/13/19 16:23 Ur Leukocyte Esterase Neg (Negative) 01/13/19 16:23 4.0 /HPF (0.0-6.0) 01/13/19 16:23 1.0 /HPF (0.0-6.0) 01/13/19 16:23 U Epithel Cells (Auto) 1.0 /HPF (0-13.0) 01/13/19 16:23 2+ /HPF 01/13/19 16:23 Salicylates < 0.3 mg/dL (2.8-20.0) L 01/13/19 15:43 Presumptive negative 01/13/19 16:23 Presumptive negative 01/13/19 16:23 Acetaminophen < 5.0 ug/mL (10.0-30.0) L 01/13/19 15:43 Ur Barbiturates Screen Presumptive negative 01/13/19 16:23 Ur Phencyclidine Scrn Presumptive negative 01/13/19 16:23 Ur Amphetamines Screen Presumptive negative 01/13/19 16:23 U Benzodiazepines Scrn Presumptive negative 01/13/19 16:23 Presumptive negative 01/13/19 16:23 U Marijuana (THC) Screen Presumptive negative 01/13/19 16:23 Disclamer 01/13/19 16:23 Plasma/Serum Alcohol < 0.01 % (0-0.07) 01/13/19 15:43 Active Medications - Current Medications Current Medications: Generic Name Dose Route Start Last Admin Trade Name Freq PRN Reason Stop Dose Admin Acetaminophen 650 mg 01/13/19 19:52 Tylenol DC Q4H PRN Pain, Mild (1-3)/ Fever>100.5 Albuterol 2.5 mg 01/13/19 19:42 Proventil IH Q3HRT PRN Shortness Of Breath Lipase/Protease/Amylase 1 each 01/19/19 14:44 Pancreazimelda Akers 10,500 Unit FEEDTUBE PRN PRN For Clogged Feeding Tube Enoxaparin Sodium 40 mg 01/21/19 10:00 01/21/19 10:13 Lovenox SUB-Q 40 mg QDAY@1000 JOLIE Administration Levetiracetam 1,000 mg/ 110 mls @ 400 mls/hr 01/13/19 22:00 01/21/19 10:13 Dextrose IV 01/21/19 23:59 400 mls/hr Q12HR JOLIE Administration Lansoprazole 30 mg 01/21/19 10:00 01/21/19 10:13 Prevacid Solutab FEEDTUBE 30 mg QDAY JOLIE Administration Levetiracetam 1,000 mg 01/22/19 10:00 Keppra PO BID JOLIE Lorazepam 2 mg 01/13/19 19:48 01/20/19 17:48 Ativan IV 2 mg Q4H PRN Administration Agitation; seizure Morphine Sulfate 2 mg 01/13/19 19:42 01/19/19 21:28 Morphine IV 2 mg Q4H PRN Administration Pain, Moderate (4-6) Ondansetron HCl 4 mg 01/13/19 19:42 Zofran IV Q8H PRN Nausea And Vomiting Simple Syrup 15 ml 01/19/19 14:44 Simple Syrup FEEDTUBE PRN PRN Hypoglycemia Simple Syrup 30 ml 01/19/19 14:44 Simple Syrup FEEDTUBE PRN PRN Hypoglycemia Sodium Bicarbonate 325 mg 01/19/19 14:44 Sodium Bicarbonate FEEDTUBE PRN PRN For Clogged Feeding Tube Sodium Chloride 10 ml 01/13/19 22:00 01/21/19 10:14 Sodium Chloride Flush Syringe 10 Ml IV 10 ml BID JOLIE Administration Sodium Chloride 10 ml 01/13/19 19:42 Sodium Chloride Flush Syringe 10 Ml IV PRN PRN LINE FLUSH Nutrition/Malnutrition Assess - Dietary Evaluation Nutrition/Malnutrition Findings: Nutrition Notes Start: 01/18/19 13:22 Freq: Status: Active Protocol: Document 01/19/19 14:30 RM (Rec: 01/19/19 14:43 RM [id number]) Nutrition Notes Initial or Follow up Reassessment Other Pertinent Diagnosis Upper GIB,Coffee ground emesis ,Cholelithiasis,Nonverbal, Status epilepticus Current Diet Pureed Labs/Tests K 4.2 Pertinent Medications Reviewed Height 5 ft 3 in Weight 70.3 kg [place] Body Weight (kg) 52.27 BMI 27.4 Subjective/Other Information Consulted for TF recommendation. Burn Absent Trauma Absent #1 Nutrition Diagnosis Inadequate oral intake Diagnosis Progress(for reassessment Continues documentation) Is patient on ventilator? No Is Patient Ambulatory and/or Out of Bed No REE-([facility]-confined to bed) 5976.133 Calculation Used for Recommendations [facility] Additional Notes Protein Needs: 56-70g (0.8-1g/ kg) Fluid Needs: 1 ml/kcal Nutrition Intervention Nutrition Support: Jevity 1.2 at 55 ml/hr Water flush of 100 ml q 4 hrs Kcal 1,584 Protein (gm) 73 Fluid (mL) 1,065 Goal #1 TF tolerance Goal #2 Meet at least 75% of calorie and protein needs via TF Anticipated Discharge Needs: Unable to determine at this time Follow-Up By: 01/21/19 Additional Comments Follow for TF tolerance
[2019-01-22] MEDS: KEPPRA 1,000 MG in D5W 100 ML IV SCH (02:48)
[2019-01-22] MEDS: MORPHINE IV PRN (02:53)
[2019-01-22] MEDS ORDERED: NACL 0.9% 500 ML IV ONE (03:30)
[2019-01-22] MEDS ORDERED: ADRENALIN IV ONE (03:55)
[2019-01-22] MEDS ORDERED: ADRENALIN ONE (03:55)
[2019-01-22 07:45] LABS: Basophils % (Auto) 0.2 % (0.0-1.8); Eosinophils % (Auto) 0.1 % (0.0-4.3); Hematocrit 31.2 % (30.3-42.9); Hemoglobin 10.6 gm/dl (10.1-14.3); Lymphocytes # (Auto) 1.2 K/mm3 (1.2-5.4); Mean Corpuscular HGB Conc 34 % (30-34); Mean Corpuscular Volume 86 fl (79-97); Monocytes # (Auto) 0.5 K/mm3 (0.0-0.8); Platelet Count 150 K/mm3 (140-440); Red Blood Count 3.64 M/mm3 (3.65-5.03)
[2019-01-22 08:02] LABS: Albumin 2.2 g/dL (3.9-5); Calcium 7.2 mg/dL (8.4-10.2)
[2019-01-22] MEDS: NEO-SYNEPHRINE 100 MG in NACL 0.9% 90 ML IV SCH ×4 (08:58→21:44)
[2019-01-22] MEDS: LEVOPHED DRIP 4 MG/NS 250 ML 4 MG/250 ML BAG IV SCH ×3 (08:59→14:26)
[2019-01-22] MEDS: Vasostrict 20 UNIT in NACL 0.9% 100 ML IV SCH ×2 (09:37→17:35)
[2019-01-22] MEDS: PREVACID SOLUTAB FEEDTUBE SCH (10:00)
[2019-01-22] MEDS: KEPPRA PO SCH ×2 (10:00→22:45)
[2019-01-22] MEDS: SODIUM CHLORIDE FLUSH SYRINGE 10 ML IV SCH ×2 (10:00→21:07)
[2019-01-22] MEDS: POTASSIUM CHLORIDE FEEDTUBE SCH ×3 (10:10→15:09)
[2019-01-22] MEDS: HumaLOG SUB-Q SCH ×3 (10:10→18:15)
[2019-01-22] MEDS: LOVENOX SUB-Q SCH (10:13)
--- NOTE | 2019-01-22 10:42 | XRay Report ---
ABDOMEN 1 VIEW(S) INDICATION / CLINICAL INFORMATION: NGT placement. COMPARISON: 01/20/2019 FINDINGS: TUBES / LINES: The nasogastric tube is coiled in the mid stomach. BOWEL GAS PATTERN: There is moderate gas throughout small and large bowel loops suggestive of an ileu s. FREE AIR / EXTRALUMINAL GAS: None seen. ADDITIONAL FINDINGS: No significant additional findings. IMPRESSION: The nasogastric tube is coiled in the mid stomach. Mild diffuse ileus is suspected. Signer Name: Gareth Mehta Jr, MD Signed: 01/22/2019 10:37 AM Workstation Name: [id number]
[2019-01-22] MEDS ORDERED: NACL 0.9% 1000 ML 2,000 ML IV SCH (11:00)
[2019-01-22] MEDS ORDERED: ADRENALIN 8 MG in NACL 0.9% 250ML 242 ML IV SCH (11:00)
--- NOTE | 2019-01-22 11:18 | Progress Note ---
Assessment and Plan Acute metabolic/hepatic encephalopathy Acute respiratory failure- hypoxic on MVS SIRS Cholelithiasis Upper GI bleed Status epilepticus Lactic acidosis - hyperventilate in short term re: severe metabolic acidosis - avoid hyperchloremic component; begin D5W with 3 amps bicarbonate per liter started @ 150 mls/hr - get surgery consult re: ? acute abdomen (KUB suggests bowel obstruction vs severe ileus) - gentle volume resuscitation re: low EF on rapid scan - albumin 50 gms 25% IV bolus - begin dobutamine at 5 mics/kg/min (NO TITRATION) - wean FiO2 to keep O2 sats > 90% - get bilateral lower extremity arterial dopplers re: reduced pedal pulses and cold legs - get bilateral lower extremity venous dopplers re: VTE - get lactate and CRP levels; trend to aid clinical decision making - cardiology evaluation ongoing - VAP bundle addressed - continue bronchodilators with pulmonary hygiene per RT - continue lung protective strategies - keep NPO for now - continue antiinfective's per ID rec's (de-escalate based on clinical and microbiologic data) - continue lovenox for VTE prophylaxis, monitor platelet counts. - continue to monitor for bleeding - continue mobility protocols to prevent pressure ulcers - Cardio-protective measures - continue to avoid nephrotoxins, adjust all medications for GFR, CrcL - wean vasopressors to keep MAP > 65 mmHg (adding vasopressin) - continue chronic disease med's per attending - daily SAT's and SBT assessment as tolerated - Titrate sedation to RASS 0 to -1 - continue accuchecks with glycemic control per SSI for target blood glucose 140 - 180 mg/dL acutely - Agitation management - Prevention of delirium, maintenance of sleep-wake cycle - VTE and Stress ulcer prophylaxis - continue other care per attending / other consultants .... re-evaluate in am & prn CONDITION: CRITICAL PROGNOSIS: GUARDED CODE STATUS: FULL The high probability of a clinically significant, sudden or life-threatening deterioration of the [respiratory and cardiac] system(s) required my full and direct attention, intervention and personal management. The aggregate critical care time was [60] minutes without overlap. Time includes spent on; [x] Data Review and interpretation [x] Patient assessment and monitoring of vital signs [x] Documentation [x] Medication orders and management Subjective Date of service: 01/22/19 Principal diagnosis: Acute hypoxemic resp failure; Severe Sepsis with Shock; Status Epilepticus Interval history: Patient is seen today for: Acute encephalopathy (toxic/met); Acute hypoxemic respiratory failure; Severe Sepsis with Shock; Cholelithiasis; Upper GI bleed; Status epilepticus; Lactic acidosis Seen and examined at bedside; 24hour events reviewed; nursing and respiratory care staff consulted; no adverse overnight events reported to me; resting in bed; remains on full MVS; AMS is persistent; no emesis or overt aspiration; no seizure activity but essentially obtunded; also on levophed and vasopressin and neosynephrine but remains hypotensive Objective Vital Signs - 12hr 01/21/19 01/21/19 01/22/19 23:38 23:51 00:00 Temperature 98.9 F Pulse Rate 118 H 123 H Pulse Rate [ 122 H From Monitor] Respiratory 14 12 Rate Blood Pressure 123/77 122/82 O2 Sat by Pulse 99 95 Oximetry 01/22/19 01/22/19 01/22/19 01:00 02:00 02:53 Temperature Pulse Rate 123 H 138 H Pulse Rate [ From Monitor] Respiratory 15 17 13 Rate Blood Pressure 131/80 137/101 O2 Sat by Pulse 95 97 Oximetry 01/22/19 01/22/19 01/22/19 03:01 04:00 04:01 Temperature 99.9 F H Pulse Rate 153 H 165 H Pulse Rate [ 136 H From Monitor] Respiratory 13 22 33 H Rate Blood Pressure 92/60 90/64 O2 Sat by Pulse 97 100 Oximetry 01/22/19 01/22/19 01/22/19 05:00 05:40 06:00 Temperature Pulse Rate 136 H 110 H 126 H Pulse Rate [ From Monitor] Respiratory 14 20 Rate Blood Pressure 73/31 104/80 85/46 O2 Sat by Pulse 96 98 100 Oximetry 01/22/19 01/22/19 08:00 08:07 Temperature 98.2 F Pulse Rate 147 H Pulse Rate [ From Monitor] Respiratory Rate Blood Pressure 79/49 O2 Sat by Pulse 100 Oximetry Constitutional: appears uncomfortable, other (young HM, normocephalic riding set rate on MVS) Eyes: non-icteric ENT: oropharynx moist, other (ETT 23 cm ABILIO) Neck: supple, no lymphadenopathy, no JVD Effort: mildly labored Ascultation: Bilateral: diminished breath sounds, rhonchi Percussion: Bilateral: not dull Cardiovascular: regular rate and rhythm Gastrointestinal: hypoactive bowel sounds, soft, non-tender, non-distended Integumentary: other (mottling of skin to legs) Extremities: no edema, no ischemia or petechiae, cool, other (poor pedal pulses) Neurologic: unable to assess Psychiatric: other (unable to assess re: AMS) CBC and BMP: 01/22/19 07:25 01/22/19 07:25 ABG, PT/INR, D-dimer: ABG POC ABG pH 7.319 (7.35-7.45) L 01/22/19 07:21 POC ABG pCO2 42.9 (35-45) 01/22/19 07:21 POC ABG pO2 192 (80-105) H 01/22/19 07:21 POC ABG HCO3 22.0 (22-26 mml/L) 01/22/19 07:21 POC ABG Total CO2 23 (23-27mmol/L) 01/22/19 07:21 POC ABG O2 Sat 100 01/22/19 07:21 PT/INR, D-dimer PT 17.6 Sec. (12.2-14.9) H 01/15/19 04:18 INR 1.48 (0.87-1.13) H 01/15/19 04:18 Abnormal lab findings: Abnormal Labs 01/13/19 01/13/19 01/13/19 15:40 15:43 15:43 WBC 13.6 H RBC Hgb Hct MCHC Lymph % (Auto) 5.4 L Gregg % (Auto) Lymph # 0.7 L Seg Neutrophils % 88.6 H Seg Neutrophils # 12.0 H PT INR POC ABG pH POC ABG pCO2 POC ABG pO2 Sodium Potassium 2.8 L* Chloride Carbon Dioxide 9 L* D BUN 23 H Creatinine Glucose 109 H POC Glucose 109 H Lactic Acid Calcium 8.2 L Phosphorus Magnesium Total Bilirubin 1.30 H AST 46 H ALT Alkaline Phosphatase Ammonia Lactate Dehydrogenase Total Protein Albumin 3.7 L Lipase Salicylates Acetaminophen 01/13/19 01/13/19 01/13/19 15:43 15:43 15:43 WBC RBC Hgb Hct MCHC Lymph % (Auto) Gregg % (Auto) Lymph # Seg Neutrophils % Seg Neutrophils # PT INR POC ABG pH POC ABG pCO2 POC ABG pO2 Sodium Potassium Chloride Carbon Dioxide BUN Creatinine Glucose POC Glucose Lactic Acid 14.10 H* Calcium Phosphorus Magnesium Total Bilirubin AST ALT Alkaline Phosphatase Ammonia 157.0 H Lactate Dehydrogenase Total Protein Albumin Lipase Salicylates < 0.3 L Acetaminophen 01/13/19 01/13/19 01/13/19 15:43 15:43 17:44 WBC RBC Hgb Hct MCHC Lymph % (Auto) Gregg % (Auto) Lymph # Seg Neutrophils % Seg Neutrophils # PT 20.1 H INR 1.76 H POC ABG pH POC ABG pCO2 POC ABG pO2 Sodium Potassium Chloride Carbon Dioxide BUN Creatinine Glucose POC Glucose Lactic Acid Calcium Phosphorus Magnesium Total Bilirubin AST ALT Alkaline Phosphatase Ammonia Lactate Dehydrogenase 296 H Total Protein Albumin Lipase 71 H Salicylates Acetaminophen < 5.0 L 01/13/19 01/14/19 01/14/19 18:03 05:19 08:22 WBC RBC 3.61 L Hgb Hct MCHC Lymph % (Auto) 10.8 L Gregg % (Auto) 7.4 H Lymph # 0.9 L Seg Neutrophils % 81.4 H Seg Neutrophils # PT INR POC ABG pH POC ABG pCO2 POC ABG pO2 142 H Sodium Potassium 3.0 L Chloride Carbon Dioxide BUN Creatinine Glucose POC Glucose Lactic Acid Calcium Phosphorus Magnesium 1.50 L Total Bilirubin AST ALT Alkaline Phosphatase Ammonia Lactate Dehydrogenase Total Protein Albumin Lipase Salicylates Acetaminophen 01/14/19 01/14/19 01/14/19 08:22 08:22 09:49 WBC RBC Hgb Hct MCHC Lymph % (Auto) Gregg % (Auto) Lymph # Seg Neutrophils % Seg Neutrophils # PT INR POC ABG pH POC ABG pCO2 POC ABG pO2 Sodium Potassium 2.3 L* D Chloride Carbon Dioxide 21 L D BUN Creatinine 0.5 L Glucose 60 L POC Glucose Lactic Acid 2.50 H* Calcium 7.4 L Phosphorus Magnesium Total Bilirubin AST ALT Alkaline Phosphatase Ammonia Lactate Dehydrogenase Total Protein Albumin Lipase Salicylates Acetaminophen 01/14/19 01/14/19 01/14/19 16:35 16:44 22:51 WBC RBC Hgb Hct 29.8 L MCHC Lymph % (Auto) Gregg % (Auto) Lymph # Seg Neutrophils % Seg Neutrophils # PT INR POC ABG pH POC ABG pCO2 POC ABG pO2 Sodium Potassium 2.2 L* Chloride Carbon Dioxide BUN 4 L Creatinine 0.4 L Glucose POC Glucose 112 H Lactic Acid Calcium 7.2 L Phosphorus Magnesium Total Bilirubin AST 74 H ALT Alkaline Phosphatase Ammonia Lactate Dehydrogenase Total Protein 5.8 L Albumin 3.1 L Lipase Salicylates Acetaminophen 01/15/19 01/15/19 01/15/19 04:18 04:18 04:18 WBC RBC 3.51 L Hgb Hct 30.0 L MCHC 36 H Lymph % (Auto) Gregg % (Auto) Lymph # Seg Neutrophils % Seg Neutrophils # PT 17.6 H INR 1.48 H POC ABG pH POC ABG pCO2 POC ABG pO2 Sodium Potassium 2.6 L* Chloride 94.9 L Carbon Dioxide BUN 3 L Creatinine 0.3 L Glucose 104 H POC Glucose Lactic Acid Calcium 7.4 L Phosphorus Magnesium Total Bilirubin 1.50 H AST 73 H ALT Alkaline Phosphatase Ammonia Lactate Dehydrogenase Total Protein 5.4 L Albumin 3.3 L Lipase Salicylates Acetaminophen 01/15/19 01/15/19 01/16/19 08:10 15:12 04:37 WBC 3.5 L RBC 3.58 L Hgb Hct MCHC Lymph % (Auto) Gregg % (Auto) Lymph # Seg Neutrophils % Seg Neutrophils # PT INR POC ABG pH POC ABG pCO2 POC ABG pO2 Sodium Potassium 2.5 L* 2.8 L* Chloride Carbon Dioxide BUN Creatinine Glucose POC Glucose Lactic Acid Calcium Phosphorus Magnesium Total Bilirubin AST ALT Alkaline Phosphatase Ammonia Lactate Dehydrogenase Total Protein Albumin Lipase Salicylates Acetaminophen 01/16/19 01/16/19 01/16/19 04:37 14:52 19:14 WBC RBC Hgb Hct MCHC Lymph % (Auto) Gregg % (Auto) Lymph # Seg Neutrophils % Seg Neutrophils # PT INR POC ABG pH POC ABG pCO2 POC ABG pO2 Sodium Potassium 3.2 L 5.9 H D 3.5 L D Chloride Carbon Dioxide BUN 4 L Creatinine 0.4 L Glucose 134 H POC Glucose Lactic Acid Calcium 7.4 L Phosphorus 1.10 L 2.10 L D Magnesium Total Bilirubin AST 58 H ALT Alkaline Phosphatase Ammonia Lactate Dehydrogenase Total Protein 5.6 L Albumin 2.8 L Lipase Salicylates Acetaminophen 01/17/19 01/17/19 01/18/19 04:36 04:36 04:35 WBC RBC 3.52 L Hgb Hct MCHC 35 H Lymph % (Auto) Gregg % (Auto) Lymph # Seg Neutrophils % Seg Neutrophils # PT INR POC ABG pH POC ABG pCO2 POC ABG pO2 Sodium Potassium 3.4 L Chloride 107.2 H Carbon Dioxide 19 L BUN 4 L 4 L Creatinine 0.5 L 0.4 L Glucose 146 H 104 H POC Glucose Lactic Acid Calcium 8.1 L 8.3 L Phosphorus 2.30 L D Magnesium Total Bilirubin AST 59 H ALT 60 H Alkaline Phosphatase Ammonia Lactate Dehydrogenase Total Protein Albumin 3.1 L Lipase Salicylates Acetaminophen 01/18/19 01/19/19 01/19/19 09:55 05:34 09:22 WBC 4.2 L RBC Hgb Hct MCHC Lymph % (Auto) Gregg % (Auto) Lymph # Seg Neutrophils % Seg Neutrophils # PT INR POC ABG pH POC ABG pCO2 POC ABG pO2 Sodium 131 L Potassium Chloride 97.0 L Carbon Dioxide 18 L BUN 6 L Creatinine 0.4 L Glucose 119 H POC Glucose 117 H Lactic Acid Calcium Phosphorus Magnesium 1.40 L Total Bilirubin AST ALT Alkaline Phosphatase Ammonia Lactate Dehydrogenase Total Protein Albumin Lipase Salicylates Acetaminophen 01/20/19 01/20/19 01/20/19 07:34 07:34 07:35 WBC RBC 3.48 L Hgb Hct 29.4 L MCHC 35 H Lymph % (Auto) Gregg % (Auto) Lymph # Seg Neutrophils % Seg Neutrophils # PT INR POC ABG pH POC ABG pCO2 POC ABG pO2 Sodium 127 L Potassium Chloride 92.9 L Carbon Dioxide BUN Creatinine 0.4 L Glucose 157 H POC Glucose 145 H Lactic Acid Calcium 8.3 L Phosphorus Magnesium Total Bilirubin AST ALT Alkaline Phosphatase Ammonia Lactate Dehydrogenase Total Protein Albumin Lipase Salicylates Acetaminophen 01/20/19 01/20/19 01/20/19 09:17 11:52 18:40 WBC RBC Hgb Hct MCHC Lymph % (Auto) Gregg % (Auto) Lymph # Seg Neutrophils % Seg Neutrophils # PT INR POC ABG pH 7.597 H POC ABG pCO2 POC ABG pO2 312 H Sodium Potassium Chloride Carbon Dioxide BUN Creatinine Glucose POC Glucose 133 H 157 H Lactic Acid Calcium Phosphorus Magnesium Total Bilirubin AST ALT Alkaline Phosphatase Ammonia Lactate Dehydrogenase Total Protein Albumin Lipase Salicylates Acetaminophen 01/20/19 01/20/19 01/21/19 21:25 22:44 03:30 WBC RBC Hgb Hct MCHC Lymph % (Auto) Gregg % (Auto) Lymph # Seg Neutrophils % Seg Neutrophils # PT INR POC ABG pH 7.513 H POC ABG pCO2 POC ABG pO2 171 H Sodium Potassium Chloride Carbon Dioxide BUN Creatinine Glucose POC Glucose 174 H Lactic Acid Calcium Phosphorus Magnesium Total Bilirubin AST ALT Alkaline Phosphatase Ammonia 66.0 H Lactate Dehydrogenase Total Protein Albumin Lipase Salicylates Acetaminophen 01/21/19 01/21/19 01/21/19 04:01 04:01 05:35 WBC RBC 3.12 L Hgb 9.3 L Hct 26.5 L MCHC 35 H Lymph % (Auto) Gregg % (Auto) Lymph # 1.0 L Seg Neutrophils % 80.5 H Seg Neutrophils # PT INR POC ABG pH POC ABG pCO2 31.9 L POC ABG pO2 131 H Sodium 129 L Potassium Chloride 95.8 L Carbon Dioxide 21 L BUN Creatinine 0.3 L Glucose 145 H POC Glucose Lactic Acid Calcium 7.7 L Phosphorus Magnesium Total Bilirubin AST ALT Alkaline Phosphatase Ammonia Lactate Dehydrogenase Total Protein Albumin Lipase Salicylates Acetaminophen 01/21/19 01/21/19 01/21/19 07:44 11:30 15:53 WBC RBC Hgb Hct MCHC Lymph % (Auto) Gregg % (Auto) Lymph # Seg Neutrophils % Seg Neutrophils # PT INR POC ABG pH POC ABG pCO2 POC ABG pO2 Sodium Potassium Chloride Carbon Dioxide BUN Creatinine Glucose POC Glucose 153 H 176 H 143 H Lactic Acid Calcium Phosphorus Magnesium Total Bilirubin AST ALT Alkaline Phosphatase Ammonia Lactate Dehydrogenase Total Protein Albumin Lipase Salicylates Acetaminophen 01/21/19 01/21/19 01/22/19 16:09 21:27 04:27 WBC RBC Hgb Hct MCHC Lymph % (Auto) Gregg % (Auto) Lymph # Seg Neutrophils % Seg Neutrophils # PT INR POC ABG pH POC ABG pCO2 31.4 L POC ABG pO2 139 H Sodium Potassium Chloride Carbon Dioxide BUN Creatinine Glucose POC Glucose 192 H 323 H Lactic Acid Calcium Phosphorus Magnesium Total Bilirubin AST ALT Alkaline Phosphatase Ammonia Lactate Dehydrogenase Total Protein Albumin Lipase Salicylates Acetaminophen 01/22/19 01/22/19 01/22/19 04:55 07:21 07:25 WBC RBC 3.64 L Hgb Hct MCHC Lymph % (Auto) 13.0 L Gregg % (Auto) Lymph # Seg Neutrophils % 80.7 H Seg Neutrophils # PT INR POC ABG pH 7.188 L 7.319 L POC ABG pCO2 POC ABG pO2 287 H 192 H Sodium Potassium Chloride Carbon Dioxide BUN Creatinine Glucose POC Glucose Lactic Acid Calcium Phosphorus Magnesium Total Bilirubin AST ALT Alkaline Phosphatase Ammonia Lactate Dehydrogenase Total Protein Albumin Lipase Salicylates Acetaminophen 01/22/19 01/22/19 07:25 07:46 WBC RBC Hgb Hct MCHC Lymph % (Auto) Gregg % (Auto) Lymph # Seg Neutrophils % Seg Neutrophils # PT INR POC ABG pH POC ABG pCO2 POC ABG pO2 Sodium Potassium 2.3 L* D Chloride Carbon Dioxide BUN Creatinine Glucose 206 H POC Glucose 251 H Lactic Acid Calcium 7.2 L Phosphorus Magnesium Total Bilirubin AST 85 H ALT 67 H Alkaline Phosphatase 149 H Ammonia Lactate Dehydrogenase Total Protein 5.3 L Albumin 2.2 L Lipase Salicylates Acetaminophen Chest x-ray: pending Allied health notes reviewed: nursing
[2019-01-22] MEDS ORDERED: NACL 0.9% 500 ML 500 ML ONE (11:59)
[2019-01-22] MEDS ORDERED: NACL 0.9% 1000 ML 1,000 ML IV SCH (12:00)
[2019-01-22] MEDS ORDERED: NACL 0.9% 500 ML 500 ML IV SCH (13:00)
[2019-01-22] MEDS: KCL 20MEQ/100ML 20 MEQ/100 ML BAG IV SCH ×2 (13:20→14:44)
--- NOTE | 2019-01-22 13:30 | Progress Note ---
Assessment and Plan Assessment and plan: Acute hypoxemic respiratory failure. Patient is status post intubation on mechanical ventilation. Pulmonary consult. Shock ?sepsis -Levophed drip at 25mcg/min, Neosynephrine dripat 400mcg/min -recall ID -restart IV abx -check ECHO -cardiology consult s/p cardiac arrest F/u Echo Hypokalemia replete K witn KCL runs Cholelithiasis -Seen on CT abdomen and pelvis -no acute infection Upper GI bleed -Patient noted to have coffee-ground emesis on admission -NG tube -Continue Protonix -GI consulted, evaluated patient, signed off H/H stable. No need for EGD Acute toxic/metabolic/hepatic encephalopathy -Received lactulose -CT abdomen/pelvis showed normal liver -Continue to monitor hepatic function -Recheck ammonia levels -Status epilepticus -?? Hx Seizure disorders -IV Ativan prn -IV Keppra 1gm BID -Seizure precautions initiated -Neuro checks -Neurology following Hypokalemia now resolved after large doses given Hypomagnesemia Replaced Hypophosphatemia Repleted Lactic acidosis -Lactic acid on admission 14.10 -on IV Abx -on IVF -continue to monitor DVT PPX -SCds only because coffee ground emesis prognosis guarded The high probability of a clinically significant, sudden or life threatening deterioration of the [resp, neuro and cardiac] system(s) required my full and direct attention, intervention and personal management. The aggregate critical care time was [33] minutes. This time is in addition to time spent performing reported procedures but includes the following: [x] Data Review and interpretation [x] Patient assessment and monitoring of vital signs [x] Documentation [x] Medication orders and management History Interval history: Patient is 38-year-old female with unknown past medical history presents to [facility] ED via [facility] transportation services with complaints of altered mental status. Patient has been an inmate at [facility] since July of this year. According to EMS patient has been officially released from [facility] as of day of presentation to ED. Review of medical records shows that patient was transferred from [facility] to [facility] for further evaluation of possible dehydration, lethargy, and not verbally responding. At the [facility] she was tachycardic with heart rate of 131 bpm, had coffee ground emesis, and profoundly noted confusion. She was seen and evaluated in ED. She had witnessed seizures in ED, put on Keppra iv. also had coffe ground emesis, encephalopathy, hypokalemia. Also though to have possible sepsis. She was started on iv Antibiotic, iv fluids, Protonix, admitted to IMCU. She was seen by Neurology, GI Physician, ID physician. ID Physician ruled out sepsis so Antibiotics discontinued. She has SIRS. She was very lethargic, reportedly throughout the hospitalization and remained non verbal, with mumbling only. She was seen by neurology. MRI was ordered but no family to consent. Patient had deterioration in her mental status this morning with increased lethargy/somnolence with apnea. Patient was intubated and transferred to the ICU. Hospitalist Physical - Constitutional Vitals: Temp Pulse Resp BP Pulse Ox 97.2 F L 147 H 20 79/49 100 01/22/19 12:00 01/22/19 08:07 01/22/19 06:00 01/22/19 08:07 01/22/19 08:07 General appearance: Present: no acute distress, other (intubated on mechanical ventilation.) - EENT Eyes: Present: PERRL, EOM intact ENT: hearing intact, clear oral mucosa, dentition normal - Neck Neck: Present: supple, normal ROM - Respiratory Respiratory effort: normal Respiratory: bilateral: CTA - Cardiovascular Rhythm: regular Heart Sounds: Present: S1 & S2. Absent: gallop, rub - Extremities Extremities: no ischemia, No edema, Full ROM - Abdominal General gastrointestinal: soft, non-tender, non-distended, normal bowel sounds - Integumentary Integumentary: Present: clear, warm, dry - Neurologic Neurologic: CNII-XII intact, moves all extremities Results - Labs CBC & Chem 7: 01/22/19 07:25 01/22/19 07:25 Labs: Laboratory Last Values WBC 9.0 K/mm3 (4.5-11.0) 01/22/19 07:25 RBC 3.64 M/mm3 (3.65-5.03) L 01/22/19 07:25 Hgb 10.6 gm/dl (10.1-14.3) 01/22/19 07:25 Hct 31.2 % (30.3-42.9) 01/22/19 07:25 MCV 86 fl (79-97) 01/22/19 07:25 MCH 29 pg (28-32) 01/22/19 07:25 MCHC 34 % (30-34) 01/22/19 07:25 RDW 14.0 % (13.2-15.2) 01/22/19 07:25 Plt Count 150 K/mm3 (140-440) 01/22/19 07:25 Lymph % (Auto) 13.0 % (13.4-35.0) L 01/22/19 07:25 [place] % (Auto) 6.0 % (0.0-7.3) 01/22/19 07:25 Eos % (Auto) 0.1 % (0.0-4.3) 01/22/19 07:25 Baso % (Auto) 0.2 % (0.0-1.8) 01/22/19 07:25 Lymph # 1.2 K/mm3 (1.2-5.4) 01/22/19 07:25 [place] # 0.5 K/mm3 (0.0-0.8) 01/22/19 07:25 Eos # 0.0 K/mm3 (0.0-0.4) 01/22/19 07:25 Baso # 0.0 K/mm3 (0.0-0.1) 01/22/19 07:25 Seg Neutrophils % 80.7 % (40.0-70.0) H 01/22/19 07:25 Seg Neutrophils # 7.3 K/mm3 (1.8-7.7) 01/22/19 07:25 PT 17.6 Sec. (12.2-14.9) H 01/15/19 04:18 INR 1.48 (0.87-1.13) H 01/15/19 04:18 APTT 29.2 Sec. (24.2-36.6) 01/13/19 17:44 POC ABG pH 7.319 (7.35-7.45) L 01/22/19 07:21 POC ABG pCO2 42.9 (35-45) 01/22/19 07:21 POC ABG pO2 192 (80-105) H 01/22/19 07:21 POC ABG HCO3 22.0 (22-26 mml/L) 01/22/19 07:21 POC ABG Total CO2 23 (23-27mmol/L) 01/22/19 07:21 POC ABG O2 Sat 100 01/22/19 07:21 POC ABG Base Excess -4 ((-2) - (+3)mmol/L) 01/22/19 07:21 100 % 01/22/19 07:21 Sodium 144 mmol/L (137-145) D 01/22/19 07:25 Potassium 2.3 mmol/L (3.6-5.0) L* D 01/22/19 07:25 Chloride 101.8 mmol/L (98-107) 01/22/19 07:25 Carbon Dioxide 23 mmol/L (22-30) 01/22/19 07:25 22 mmol/L 01/22/19 07:25 BUN 15 mg/dL (7-17) 01/22/19 07:25 1.2 mg/dL (0.7-1.2) D 01/22/19 07:25 Estimated GFR 50 ml/min 01/22/19 07:25 13 % 01/22/19 07:25 Glucose 206 mg/dL (65-100) H 01/22/19 07:25 POC Glucose 152 (70-105) H 01/22/19 12:02 Lactic Acid 10.10 mmol/L (0.7-2.0) H* 01/22/19 12:30 Calcium 7.2 mg/dL (8.4-10.2) L 01/22/19 07:25 Phosphorus 3.20 mg/dL (2.5-4.5) D 01/19/19 05:34 Magnesium 2.10 mg/dL (1.7-2.3) 01/22/19 07:25 0.50 mg/dL (0.1-1.2) 01/22/19 07:25 AST 85 units/L (5-40) H 01/22/19 07:25 ALT 67 units/L (7-56) H 01/22/19 07:25 149 units/L (35-129) H 01/22/19 07:25 66.0 umol/L (25-60) H 01/20/19 22:44 296 units/L (91-180) H 01/13/19 15:43 133 units/L (30-135) 01/13/19 15:43 < 0.010 ng/mL (0.00-0.029) 01/14/19 05:19 15.70 mg/dL (0.00-1.30) H 01/22/19 07:25 5.3 g/dL (6.3-8.2) L 01/22/19 07:25 2.2 g/dL (3.9-5) L 01/22/19 07:25 0.7 % 01/22/19 07:25 27 units/L (13-60) 01/14/19 10:43 TSH 3.070 mlU/mL (0.270-4.200) 01/13/19 15:43 HCG, Quant < 2 mIU/mL (0-4) 01/13/19 17:44 Peri (Yellow) 01/13/19 16:23 Clear (Clear) 01/13/19 16:23 6.0 (5.0-7.0) 01/13/19 16:23 Ur Specific [place] 1.027 (1.003-1.030) 01/13/19 16:23 100 mg/dl mg/dL (Negative) 01/13/19 16:23 Neg mg/dL (Negative) 01/13/19 16:23 20 mg/dL (Negative) 01/13/19 16:23 Sm (Negative) 01/13/19 16:23 Neg (Negative) 01/13/19 16:23 Neg (Negative) 01/13/19 16:23 4.0 mg/dL (<2.0) 01/13/19 16:23 Ur Leukocyte Esterase Neg (Negative) 01/13/19 16:23 4.0 /HPF (0.0-6.0) 01/13/19 16:23 1.0 /HPF (0.0-6.0) 01/13/19 16:23 U Epithel Cells (Auto) 1.0 /HPF (0-13.0) 01/13/19 16:23 2+ /HPF 01/13/19 16:23 Salicylates < 0.3 mg/dL (2.8-20.0) L 01/13/19 15:43 Presumptive negative 01/13/19 16:23 Presumptive negative 01/13/19 16:23 Acetaminophen < 5.0 ug/mL (10.0-30.0) L 01/13/19 15:43 Ur Barbiturates Screen Presumptive negative 01/13/19 16:23 Ur Phencyclidine Scrn Presumptive negative 01/13/19 16:23 Ur Amphetamines Screen Presumptive negative 01/13/19 16:23 U Benzodiazepines Scrn Presumptive negative 01/13/19 16:23 Presumptive negative 01/13/19 16:23 U Marijuana (THC) Screen Presumptive negative 01/13/19 16:23 Disclamer 01/13/19 16:23 Plasma/Serum Alcohol < 0.01 % (0-0.07) 01/13/19 15:43 Active Medications - Current Medications Current Medications: Generic Name Dose Route Start Last Admin Trade Name Freq PRN Reason Stop Dose Admin Acetaminophen 650 mg 01/13/19 19:52 Tylenol VT Q4H PRN Pain, Mild (1-3)/ Fever>100.5 Albuterol 2.5 mg 01/13/19 19:42 Proventil IH Q3HRT PRN Shortness Of Breath Lipase/Protease/Amylase 1 each 01/19/19 14:[address] 10,500 Unit FEEDTUBE PRN PRN For Clogged Feeding Tube Enoxaparin Sodium 40 mg 01/21/19 10:00 01/22/19 10:13 Lovenox SUB-Q 40 mg QDAY@1000 JOLIE Administration Phenylephrine HCl 100 mg/ 100 mls @ 3 mls/hr 01/22/19 05:00 01/22/19 13:19 Sodium Chloride IV 400 mcg/min TITR JOLIE 24 mls/hr Administration Protocol 50 MCG/MIN Norepinephrine 4 mg in 250 mls @ 7.5 mls/hr 01/22/19 07:00 01/22/19 11:15 Levophed Drip 4 Mg/Ns 250 Ml IV 30 mcg/min TITR JOLIE 112.5 mls/hr Administration Protocol 2 MCG/MIN Vasopressin 20 unit/ Sodium 101 mls @ 9.09 mls/hr 01/22/19 10:00 01/22/19 09:37 Chloride IV 0.03 units/min TITR JOLIE 9.09 mls/hr Administration Protocol 0.03 UNITS/MIN Epinephrine 8 mg/ Sodium 250 mls @ 3.75 mls/hr 01/22/19 11:00 Chloride IV TITR JOLIE Protocol 2 MCG/MIN Sodium Chloride 1,000 mls @ 150 mls/hr 01/22/19 12:00 01/22/19 11:10 Nacl 0.9% 1000 Ml IV 150 mls/hr DIRECT JOLIE Administration Potassium Chloride 20 meq in 100 mls @ 100 mls/hr 01/22/19 12:00 01/22/19 13:20 Kcl 20meq/100ml IV 01/22/19 13:59 100 mls/hr Q1H JOLIE Administration Sodium Chloride 500 mls @ 10 mls/hr 01/22/19 13:00 Nacl 0.9% 500 Ml IV PRN JOLIE Insulin Human Lispro 0 unit 01/22/19 09:00 01/22/19 10:10 Humalog SUB-Q 6 unit Q6HR JOLIE Administration Protocol Lansoprazole 30 mg 01/21/19 10:00 01/21/19 10:13 Prevacid Solutab FEEDTUBE 30 mg QDAY JOLIE Administration Levetiracetam 1,000 mg 01/22/19 10:00 Keppra PO BID JOLIE Lorazepam 2 mg 01/13/19 19:48 01/20/19 17:48 Ativan IV 2 mg Q4H PRN Administration Agitation; seizure Ondansetron HCl 4 mg 01/13/19 19:42 Zofran IV Q8H PRN Nausea And Vomiting Simple Syrup 15 ml 01/19/19 14:44 Simple Syrup FEEDTUBE PRN PRN Hypoglycemia Simple Syrup 30 ml 01/19/19 14:44 Simple Syrup FEEDTUBE PRN PRN Hypoglycemia Sodium Bicarbonate 325 mg 01/19/19 14:44 Sodium Bicarbonate FEEDTUBE PRN PRN For Clogged Feeding Tube Sodium Chloride 10 ml 01/13/19 22:00 01/21/19 10:14 Sodium Chloride Flush Syringe 10 Ml IV 10 ml BID JOLIE Administration Sodium Chloride 10 ml 01/13/19 19:42 Sodium Chloride Flush Syringe 10 Ml IV PRN PRN LINE FLUSH Nutrition/Malnutrition Assess - Dietary Evaluation Nutrition/Malnutrition Findings: Nutrition Notes Start: 01/18/19 13:2 2 Freq: Status: Active Protocol: Document 01/21/19 17:43 RM (Rec: 01/21/19 17:52 RM [id number]) Nutrition Notes Initial or Follow up Reassessment Other Pertinent Diagnosis Upper GIB,Coffee ground emesis ,Cholelithiasis,Nonverbal, Status epilepticus Current Diet Pureed Labs/Tests Na 129 Pertinent Medications Reviewed Height 5 ft 3 in Weight 70.3 kg Malcolm Body Weight (kg) 52.27 BMI 27.4 Subjective/Other Information Pt coded and moved to ICU. Pt on vent. Observed Jevity 1.2 infusing at 35 ml/hr. Per nurse pt is tolerating TF. Noted Na 129. IV fluid's were D/C'd today. Burn Absent Trauma Absent #1 Nutrition Diagnosis Inadequate oral intake Diagnosis Progress(for reassessment Continues documentation) Is patient on ventilator? No Is Patient Ambulatory and/or Out of Bed No REE-([facility]-confined to bed) 2057.006 Calculation Used for Recommendations [facility] Additional Notes Protein Needs: 84-140g (1.2-2g /kg) Fluid Needs: 1 ml/kcal Nutrition Intervention Nutrition Support: Osmolite 1.5 at 45 ml/hr Water flush of 150 mls q 4 hrs Kcal 1,620 Protein (gm) 68 Fluid (mL) 823 Goal #1 TF tolerance Goal #2 Meet at least 80% of calorie and protein needs via TF Anticipated Discharge Needs: Unable to determine at this time Follow-Up By: 01/23/19 Additional Comments Follow for new TF
[2019-01-22] MEDS ORDERED: ALBURX 25% (ALBUMIN) IV ONE (14:24)
--- NOTE | 2019-01-22 14:35 | Consultation ---
History of Present Illness Consult date: 01/22/19 Requesting physician: SUMIT GA History of present illness: Ms. French is a 38 y/o female with an unknown medical history who p resented to [facility] from the [facility] with altered mental status. She is previously unknown to our practice. She is intubated and unresponsive at the time of exam, so HPI obtained from the medical record. Per chart notes, she [facility] with lethargy, confusion and suspected dehydration. She was also noted to be tachycardic with HR in the 130s and had coffee ground emesis. In the ED, she experienced witnessed seizures and became encephalopathic and hypokalemic. She was started on antibiotics d/t suspected sepsis, which was subsequently ruled out. EEG negative for seizure activity. Her mental status and respiratory status subsequently deteriorated; a Code Blue was called d/t agonal breathing. She is currently intubated, unresponsive and requiring multiple pressors. Past History Past Medical History: other (unable to obtain ) Past Surgical History: Other (unable to obtain due to patient's mentation) Social history: other (incarcerated from July of this year, has been officially release from incarceration per EMS report) Family history: no significant family history, other (Unable to obtain due to patient's mentation) Medications and Allergies Allergies Allergy/AdvReac Type Severity Reaction Status Date / Time Unable to Assess Allergy Verified 01/14/19 12:37 Home Medications Medication Instructions Recorded Confirmed Last Taken Type No Known Home Medications [No 01/14/19 01/14/19 Unknown History Reported Home Medications] Active Meds: Active Medications Acetaminophen (Tylenol) 650 mg MO Q4H PRN PRN Reason: Pain, Mild (1-3)/ Fever>100.5 Albuterol (Proventil) 2.5 mg IH Q3HRT PRN PRN Reason: Shortness Of Breath Lipase/Protease/Amylase (Abraham Akers 10,500 Unit) 1 each FEEDTUBE PRN PRN PRN Reason: For Clogged Feeding Tube Enoxaparin Sodium (Lovenox) 40 mg SUB-Q QDAY@1000 JOLIE Last Admin: 01/22/19 10:13 Dose: 40 mg Documented by: Phenylephrine HCl 100 mg/ (Sodium Chloride) 100 mls @ 3 mls/hr IV TITR JOLIE; Protocol Last Admin: 01/22/19 13:19 Dose: 400 mcg/min, 24 mls/hr Documented by: Vasopressin 20 unit/ Sodium (Chloride) 101 mls @ 9.09 mls/hr IV TITR JOLIE; Protocol Last Admin: 01/22/19 09:37 Dose: 0.03 units/min, 9.09 mls/hr Documented by: Epinephrine 8 mg/ Sodium (Chloride) 250 mls @ 3.75 mls/hr IV TITR JOLIE; Protocol Sodium Chloride (Nacl 0.9% 1000 Ml) 1,000 mls @ 150 mls/hr IV DIRECT JOLIE Last Admin: 01/22/19 11:10 Dose: 150 mls/hr Documented by: Sodium Chloride (Nacl 0.9% 500 Ml) 500 mls @ 10 mls/hr IV PRN JOLIE Levofloxacin/Dextrose (Levaquin 750mg/150ml) 750 mg in 150 mls @ 100 mls/hr IV Q24HR JOLIE; Protocol Ceftriaxone Sodium (Rocephin/Ns 1 Gm/50 Ml) 1 gm in 50 mls @ 100 mls/hr IV Q24HR JOLIE; Protocol Norepinephrine 8 mg/ Sodium (Chloride) 250 mls @ 3.75 mls/hr IV TITR JOLIE; Protocol Insulin Human Lispro (Humalog) 0 unit SUB-Q Q6HR JOLIE; Protocol Last Admin: 01/22/19 10:10 Dose: 6 unit Documented by: Lansoprazole (Prevacid Solutab) 30 mg FEEDTUBE QDAY JOLIE Last Admin: 01/21/19 10:13 Dose: 30 mg Documented by: Levetiracetam (Keppra) 1,000 mg PO BID JOLIE Lorazepam (Ativan) 2 mg IV Q4H PRN PRN Reason: Agitation; seizure Last Admin: 01/20/19 17:48 Dose: 2 mg Documented by: Ondansetron HCl (Zofran) 4 mg IV Q8H PRN PRN Reason: Nausea And Vomiting Simple Syrup (Simple Syrup) 15 ml FEEDTUBE PRN PRN PRN Reason: Hypoglycemia Simple Syrup (Simple Syrup) 30 ml FEEDTUBE PRN PRN PRN Reason: Hypoglycemia Sodium Bicarbonate (Sodium Bicarbonate) 325 mg FEEDTUBE PRN PRN PRN Reason: For Clogged Feeding Tube Sodium Chloride (Sodium Chloride Flush Syringe 10 Ml) 10 ml IV BID [facility] Last Admin: 01/21/19 10:14 Dose: 10 ml Documented by: Sodium Chloride (Sodium Chloride Flush Syringe 10 Ml) 10 ml IV PRN PRN PRN Reason: LINE FLUSH Review of Systems ROS unobtainable: due to endotracheal tube Physical Examination Last Vital Signs Temp 97.2 F L 01/22/19 12:00 Pulse 136 H 01/22/19 13:30 Resp 20 01/22/19 06:00 BP 79/49 01/22/19 08:07 Pulse Ox 82 L 01/22/19 13:30 General appearance: no acute distress, other (Intubated, unresponsive ) Cardiac: Positive: Regular Rhythm, Other (Weak pulse.) Lungs: Positive: Ventilated Respirations Neuro: Positive: Other (Unresponsive ) Abdomen: Positive: Unremarkable Female genitourinary: deferred Skin: Positive: Mottled Musculoskeletal: other (No movement) Extremities: Present: Mottled (Weak pulses) Results 01/22/19 07:25 01/22/19 07:25 Cardiac Enzymes 01/22/19 Range/Units 07:25 AST 85 H (5-40) units/L CBC 01/22/19 Range/Units 07:25 WBC 9.0 (4.5-11.0) K/mm3 RBC 3.64 L (3.65-5.03) M/mm3 Hgb 10.6 (10.1-14.3) gm/dl Hct 31.2 (30.3-42.9) % Plt Count 150 (140-440) K/mm3 Lymph # 1.2 (1.2-5.4) K/mm3 [place] # 0.5 (0.0-0.8) K/mm3 Eos # 0.0 (0.0-0.4) K/mm3 Baso # 0.0 (0.0-0.1) K/mm3 Comprehensive Metabolic Panel 01/22/19 Range/Units 07:25 Sodium 144 D (137-145) mmol/L Potassium 2.3 L* D (3.6-5.0) mmol/L Chloride 101.8 (98-107) mmol/L Carbon Dioxide 23 (22-30) mmol/L BUN 15 (7-17) mg/dL Creatinine 1.2 D (0.7-1.2) mg/dL Glucose 206 H (65-100) mg/dL Calcium 7.2 L (8.4-10.2) mg/dL AST 85 H (5-40) units/L ALT 67 H (7-56) units/L Alkaline Phosphatase 149 H (35-129) units/L Total Protein 5.3 L (6.3-8.2) g/dL Albumin 2.2 L (3.9-5) g/dL - Imaging and Cardiology Echo: pending (VF noted on 01/20 ) EKG interpretations - Telemetry EKG Rhythm: Sinus Tachycardia (VF noted on 01/20) Assessment and Plan The patient is a 38 y/o female brought to the ED from the [facility] with AMS and suspected dehydration. While in the hospital, she experienced seizures, worsening mental status and a Code Blue was called for agonal breathing. She is intubated, unresponsive and on multiple pressors. Prognosis guarded at this time. Continue supportive care. s/p respiratory arrest - Per report, patient never lost pulse. Etiology unclear. Suspected cardiogenic shock - Echo shows severe left global hypokinesis - Precipitating event(s) unclear - Currently on norepinephrine and phenylephrine Acute hypoxemic respiratory failure - Intubated. pulmonary following Suspected sepsis - Etiology unclear. ID following. Leukocytosis - Possibly an acute physiologic reaction or ?sepsis. Now resolved. ? Upper GI bleed - Coffee-ground emesis on admission - GI signed off Hyperammonemia - Ammonia level 157 on admission, received lactulose. Etiology unclear as CT revealed liver WNL. Seizures - Neurology following - signed off Hypokalemia - Repleted Hypophosphatemia - Repleted Hypomagnesemia - Repleted Lactic acidosis Cholelithiasis
[2019-01-22] MEDS ORDERED: NACL 0.9% 1000 ML 1,000 ML IV ONE ×2 (15:16→20:46)
[2019-01-22] MEDS ORDERED: DOBUTREX DRIP 500MG/D5W 250ML 500 MG/250 ML BAG IV ONE (15:21)
[2019-01-22] MEDS ORDERED: NACL 0.9% 500 ML 500 ML IV ONE (15:40)
[2019-01-22] MEDS ORDERED: DOBUTREX DRIP 500MG/D5W 250ML 500 MG/250 ML BAG IV SCH (16:00)
[2019-01-22] MEDS: SODIUM BICARBONATE 150 MEQ in D5W 1,000 ML IV SCH (16:18)
--- NOTE | 2019-01-22 16:21 | Progress Note ---
Assessment and Plan Cultures: 01/13 BCx NGTD 01/13 UCx NGTD A/P: 38 yo F unknown PMHx admitted non-responsive from nursing home 1) AMS - non-verbal, normal imaging. 2) Coffee ground emesis - concern for UGIB 3) Volume depletion 4) hypokalemia 5) seizures 6) Shock - I believe this to be more cardiogenic than septic given echo findings of global hypokineses of the left wall of the heart. She is growing GNR from the ET tube, which is more likely to be colonization of the tube as opposed to true infection. Will start cefepime in the meantime given critical illness, however I don't believe it's a major component. 7) Hypoxic respiratory failure Recs - start cefepime 2g q8h - f/u sputum culture Thank you for involving us in Ms. French's care. We will continue to follow. Laya Holt MD [facility] ([facility]) C: [phone] O: [phone] F: [phone] Subjective Date of service: 01/22/19 Principal diagnosis: seizures Interval history: Called by by primary service due to increasing pressor requirements. Echo with severe global hypokinesis of the left wall. Objective - Exam Narrative Exam: Constitutional: rousable, non-verbal. Groans Head, Ears, Nose: Normocephalic, atraumatic. External ears, nose normal Eyes: Conjunctivae/corneas clear. No icterus. No ptosis. Neck: Supple, no meningeal signs Oral: poor dentition, coffee emesis evident on teeth Cardiovascular: S1, S2 normal. Normal rhythm Respiratory: Good air entry, clear to auscultation bilaterally GI: Soft, non-tender; bowel sounds normal. No peritoneal signs Musculoskeletal: No pedal edema, Skin: No rash or abscess Hem/Lymphatic: No palpable cervical or supraclavicular nodes. No lymphangitis Psych: no agitation Neurological: Disoriented, altered - Constitutional Vitals: Vital Signs Temp Pulse Resp BP Pulse Ox 97.2 F L 136 H 25 H 79/49 65 L 01/22/19 12:00 01/22/19 14:51 01/22/19 14:51 01/22/19 14:51 08/08/19 14:01 Temperature -Last 24 Hours Temperature 97.2 F Temperature 98.2 F Temperature 99.9 F Temperature 98.9 F Temperature 98.0 F - Labs CBC & Chem 7: 01/22/19 07:25 01/22/19 07:25 Labs: Abnormal lab results 01/21/19 01/21/19 01/22/19 Range/Units 15:53 21:27 04:27 RBC (3.65-5.03) M/mm3 Lymph % (Auto) (13.4-35.0) % Seg Neutrophils % (40.0-70.0) % POC ABG pH (7.35-7.45) POC ABG pO2 (80-105) Potassium (3.6-5.0) mmol/L Glucose (65-100) mg/dL POC Glucose 143 H 192 H 323 H (70-105) Lactic Acid (0.7-2.0) mmol/L Calcium (8.4-10.2) mg/dL AST (5-40) units/L ALT (7-56) units/L Alkaline Phosphatase (35-129) units/L C-Reactive Protein (0.00-1.30) mg/dL Total Protein (6.3-8.2) g/dL Albumin (3.9-5) g/dL 01/22/19 01/22/19 01/22/19 Range/Units 04:55 07:21 07:25 RBC 3.64 L (3.65-5.03) M/mm3 Lymph % (Auto) 13.0 L (13.4-35.0) % Seg Neutrophils % 80.7 H (40.0-70.0) % POC ABG pH 7.188 L 7.319 L (7.35-7.45) POC ABG pO2 287 H 192 H (80-105) Potassium (3.6-5.0) mmol/L Glucose (65-100) mg/dL POC Glucose (70-105) Lactic Acid (0.7-2.0) mmol/L Calcium (8.4-10.2) mg/dL AST (5-40) units/L ALT (7-56) units/L Alkaline Phosphatase (35-129) units/L C-Reactive Protein (0.00-1.30) mg/dL Total Protein (6.3-8.2) g/dL Albumin (3.9-5) g/dL 01/22/19 01/22/19 01/22/19 Range/Units 07:25 07:25 07:46 RBC (3.65-5.03) M/mm3 Lymph % (Auto) (13.4-35.0) % Seg Neutrophils % (40.0-70.0) % POC ABG pH (7.35-7.45) POC ABG pO2 (80-105) Potassium 2.3 L* D (3.6-5.0) mmol/L Glucose 206 H (65-100) mg/dL POC Glucose 251 H (70-105) Lactic Acid (0.7-2.0) mmol/L Calcium 7.2 L (8.4-10.2) mg/dL AST 85 H (5-40) units/L ALT 67 H (7-56) units/L Alkaline Phosphatase 149 H (35-129) units/L C-Reactive Protein 15.70 H (0.00-1.30) mg/dL Total Protein 5.3 L (6.3-8.2) g/dL Albumin 2.2 L (3.9-5) g/dL 01/22/19 01/22/19 01/22/19 Range/Units 12:02 12:30 14:56 RBC (3.65-5.03) M/mm3 Lymph % (Auto) (13.4-35.0) % Seg Neutrophils % (40.0-70.0) % POC ABG pH 6.932 L (7.35-7.45) POC ABG pO2 (80-105) Potassium (3.6-5.0) mmol/L Glucose (65-100) mg/dL POC Glucose 152 H (70-105) Lactic Acid 10.10 H* (0.7-2.0) mmol/L Calcium (8.4-10.2) mg/dL AST (5-40) units/L ALT (7-56) units/L Alkaline Phosphatase (35-129) units/L C-Reactive Protein (0.00-1.30) mg/dL Total Protein (6.3-8.2) g/dL Albumin (3.9-5) g/dL 08/08/19 Range/Units 15:03 RBC (3.65-5.03) M/mm3 Lymph % (Auto) (13.4-35.0) % Seg Neutrophils % (40.0-70.0) % POC ABG pH 7.159 L (7.35-7.45) POC ABG pO2 (80-105) Potassium (3.6-5.0) mmol/L Glucose (65-100) mg/dL POC Glucose (70-105) Lactic Acid (0.7-2.0) mmol/L Calcium (8.4-10.2) mg/dL AST (5-40) units/L ALT (7-56) units/L Alkaline Phosphatase (35-129) units/L C-Reactive Protein (0.00-1.30) mg/dL Total Protein (6.3-8.2) g/dL Albumin (3.9-5) g/dL
[2019-01-22] MEDS: LEVOPHED 8 MG in NACL 0.9% 250ML 242 ML IV SCH ×2 (16:51→20:16)
[2019-01-22] MEDS ORDERED: INTROPIN DRIP 800 MG/D5W 250 ML 800 MG/250 ML BAG IV SCH (17:00)
--- NOTE | 2019-01-22 17:06 | Consultation ---
History of Present Illness Consult date: 01/22/19 Chief complaint: unable to obtain - History of present illness History of present illness: 38 yo F who was in shelter presents to ER from [facility] after having a seizure, AMS. The patient is intubated and unresponsive so all history is obtained from chart. The patient was intubated 8/6 s/p code blue and also code today. Per notes, patient was very slow to respond to questions even when on the floor. Surgery is consulted for possible small bowel obstruction. Per nursing patient had multiple brown soft bowel movements in the last 24 hours. Past History Past Medical History: other (unable to obtain ) Past Surgical History: Other (unable to obtain due to patient's mentation) Social history: other (incarcerated from July of this year, has been officially release from incarceration per EMS report) Family history: no significant family history, other (Unable to obtain due to patient's mentation) Medications and Allergies Allergies Allergy/AdvReac Type Severity Reaction Status Date / Time Unable to Assess Allergy Verified 01/14/19 12:37 Home Medications Medication Instructions Recorded Confirmed Last Taken Type No Known Home Medications [No 01/14/19 01/14/19 Unknown History Reported Home Medications] Active Meds: Active Medications Acetaminophen (Tylenol) 650 mg WI Q4H PRN PRN Reason: Pain, Mild (1-3)/ Fever>100.5 Albuterol (Proventil) 2.5 mg IH Q3HRT PRN PRN Reason: Shortness Of Breath Lipase/Protease/Amylase (Pancreaze Dr 10,500 Unit) 1 each FEEDTUBE PRN PRN PRN Reason: For Clogged Feeding Tube Enoxaparin Sodium (Lovenox) 40 mg SUB-Q QDAY@1000 JOLIE Last Admin: 01/22/19 10:13 Dose: 40 mg Documented by: Phenylephrine HCl 100 mg/ (Sodium Chloride) 100 mls @ 3 mls/hr IV TITR JOLIE; Protocol Last Admin: 01/22/19 13:19 Dose: 400 mcg/min, 24 mls/hr Documented by: Vasopressin 20 unit/ Sodium (Chloride) 101 mls @ 9.09 mls/hr IV TITR JOLIE; Protocol Last Admin: 01/22/19 09:37 Dose: 0.03 units/min, 9.09 mls/hr Documented by: Epinephrine 8 mg/ Sodium (Chloride) 250 mls @ 3.75 mls/hr IV TITR JOLIE; Protocol Sodium Chloride (Nacl 0.9% 1000 Ml) 1,000 mls @ 150 mls/hr IV DIRECT JOLIE Last Admin: 01/22/19 11:10 Dose: 150 mls/hr Documented by: Sodium Chloride (Nacl 0.9% 500 Ml) 500 mls @ 10 mls/hr IV PRN JOLIE Last Admin: 01/22/19 13:00 Dose: 10 mls/hr Documented by: Levofloxacin/Dextrose (Levaquin 750mg/150ml) 750 mg in 150 mls @ 100 mls/hr IV Q24HR JOLIE; Protocol Norepinephrine 8 mg/ Sodium (Chloride) 250 mls @ 3.75 mls/hr IV TITR JOLIE; Protocol Last Admin: 01/22/19 16:51 Dose: 30 mcg/min, 56.25 mls/hr Documented by: Sodium Bicarbonate 150 meq/ (Dextrose) 1,150 mls @ 150 mls/hr IV DIRECT JOLIE Stop: 01/23/19 23:39 Last Admin: 01/22/19 16:18 Dose: 150 mls/hr Documented by: Dobutamine HCl/Dextrose (Dobutrex Drip 500mg/D5w 250ml) 500 mg in 250 mls @ 10.545 mls/hr IV TITR JOLIE; Protocol Last Admin: 01/22/19 15:38 Dose: 5 mcg/kg/min, 10.545 mls/hr Documented by: Dopamine HCl/Dextrose (Intropin Drip 800 Mg/D5w 250 Ml) 800 mg in 250 mls @ 2.636 mls/hr IV TITR JOLIE; Protocol Last Admin: 01/22/19 16:50 Dose: 5 mcg/kg/min, 6.591 mls/hr Documented by: Cefepime HCl (Maxipime/Ns 2 Gm/100 Ml) 2 gm in 100 mls @ 200 mls/hr IV Q8HR JOLIE; Protocol Insulin Human Lispro (Humalog) 0 unit SUB-Q Q6HR JOLIE; Protocol Last Admin: 01/22/19 12:00 Dose: Not Given Documented by: Lansoprazole (Prevacid Solutab) 30 mg FEEDTUBE QDAY JOLIE Last Admin: 01/22/19 10:00 Dose: Not Given Documented by: Levetiracetam (Keppra) 1,000 mg PO BID [facility] Last Admin: 01/22/19 10:00 Dose: Not Given Documented by: Lorazepam (Ativan) 2 mg IV Q4H PRN PRN Reason: Agitation; seizure Last Admin: 01/20/19 17:48 Dose: 2 mg Documented by: Ondansetron HCl (Zofran) 4 mg IV Q8H PRN PRN Reason: Nausea And Vomiting Simple Syrup (Simple Syrup) 15 ml FEEDTUBE PRN PRN PRN Reason: Hypoglycemia Simple Syrup (Simple Syrup) 30 ml FEEDTUBE PRN PRN PRN Reason: Hypoglycemia Sodium Bicarbonate (Sodium Bicarbonate) 325 mg FEEDTUBE PRN PRN PRN Reason: For Clogged Feeding Tube Sodium Chloride (Sodium Chloride Flush Syringe 10 Ml) 10 ml IV BID [facility] Last Admin: 01/22/19 10:00 Dose: 10 ml Documented by: Sodium Chloride (Sodium Chloride Flush Syringe 10 Ml) 10 ml IV PRN PRN PRN Reason: LINE FLUSH Review of Systems ROS unobtainable: due to endotracheal tube, due to mental status Exam Vital Signs Pulse Resp 149 H 31 H 01/13/19 15:30 01/13/19 15:30 Narrative exam: Gen: Intubated. Nonresponsive ENT: pupils fixed, not reactive. NGT with clear gastric contents CV: S1, S2+. Tachy Resp: on vent Abd; soft, NT, ND Ext; +edema : montoya with scant dark phylicia urine Results - Labs 01/22/19 07:25 01/22/19 07:25 Abnormal lab results 01/21/19 01/22/19 01/22/19 Range/Units 21:27 04:27 04:55 RBC (3.65-5.03) M/mm3 Lymph % (Auto) (13.4-35.0) % Seg Neutrophils % (40.0-70.0) % POC ABG pH 7.188 L (7.35-7.45) POC ABG pO2 287 H (80-105) Potassium (3.6-5.0) mmol/L Glucose (65-100) mg/dL POC Glucose 192 H 323 H (70-105) Lactic Acid (0.7-2.0) mmol/L Calcium (8.4-10.2) mg/dL AST (5-40) units/L ALT (7-56) units/L Alkaline Phosphatase (35-129) units/L C-Reactive Protein (0.00-1.30) mg/dL Total Protein (6.3-8.2) g/dL Albumin (3.9-5) g/dL 01/22/19 01/22/19 01/22/19 Range/Units 07:21 07:25 07:25 RBC 3.64 L (3.65-5.03) M/mm3 Lymph % (Auto) 13.0 L (13.4-35.0) % Seg Neutrophils % 80.7 H (40.0-70.0) % POC ABG pH 7.319 L (7.35-7.45) POC ABG pO2 192 H (80-105) Potassium 2.3 L* D (3.6-5.0) mmol/L Glucose 206 H (65-100) mg/dL POC Glucose (70-105) Lactic Acid (0.7-2.0) mmol/L Calcium 7.2 L (8.4-10.2) mg/dL AST 85 H (5-40) units/L ALT 67 H (7-56) units/L Alkaline Phosphatase 149 H (35-129) units/L C-Reactive Protein (0.00-1.30) mg/dL Total Protein 5.3 L (6.3-8.2) g/dL Albumin 2.2 L (3.9-5) g/dL 01/22/19 01/22/19 01/22/19 Range/Units 07:25 07:46 12:02 RBC (3.65-5.03) M/mm3 Lymph % (Auto) (13.4-35.0) % Seg Neutrophils % (40.0-70.0) % POC ABG pH (7.35-7.45) POC ABG pO2 (80-105) Potassium (3.6-5.0) mmol/L Glucose (65-100) mg/dL POC Glucose 251 H 152 H (70-105) Lactic Acid (0.7-2.0) mmol/L Calcium (8.4-10.2) mg/dL AST (5-40) units/L ALT (7-56) units/L Alkaline Phosphatase (35-129) units/L C-Reactive Protein 15.70 H (0.00-1.30) mg/dL Total Protein (6.3-8.2) g/dL Albumin (3.9-5) g/dL 01/22/19 01/22/19 01/22/19 Range/Units 12:30 14:56 15:03 RBC (3.65-5.03) M/mm3 Lymph % (Auto) (13.4-35.0) % Seg Neutrophils % (40.0-70.0) % POC ABG pH 6.932 L 7.159 L (7.35-7.45) POC ABG pO2 (80-105) Potassium (3.6-5.0) mmol/L Glucose (65-100) mg/dL POC Glucose (70-105) Lactic Acid 10.10 H* (0.7-2.0) mmol/L Calcium (8.4-10.2) mg/dL AST (5-40) units/L ALT (7-56) units/L Alkaline Phosphatase (35-129) units/L C-Reactive Protein (0.00-1.30) mg/dL Total Protein (6.3-8.2) g/dL Albumin (3.9-5) g/dL Diabetes panel 01/22/19 Range/Units 07:25 Sodium 144 D (137-145) mmol/L Potassium 2.3 L* D (3.6-5.0) mmol/L Chloride 101.8 (98-107) mmol/L Carbon Dioxide 23 (22-30) mmol/L BUN 15 (7-17) mg/dL Creatinine 1.2 D (0.7-1.2) mg/dL Glucose 206 H (65-100) mg/dL Calcium 7.2 L (8.4-10.2) mg/dL AST 85 H (5-40) units/L ALT 67 H (7-56) units/L Alkaline Phosphatase 149 H (35-129) units/L Total Protein 5.3 L (6.3-8.2) g/dL Albumin 2.2 L (3.9-5) g/dL Calcium panel 01/22/19 Range/Units 07:25 Calcium 7.2 L (8.4-10.2) mg/dL Albumin 2.2 L (3.9-5) g/dL Pituitary panel 01/22/19 Range/Units 07:25 Sodium 144 D (137-145) mmol/L Potassium 2.3 L* D (3.6-5.0) mmol/L Chloride 101.8 (98-107) mmol/L Carbon Dioxide 23 (22-30) mmol/L BUN 15 (7-17) mg/dL Creatinine 1.2 D (0.7-1.2) mg/dL Glucose 206 H (65-100) mg/dL Calcium 7.2 L (8.4-10.2) mg/dL Adrenal panel 01/22/19 Range/Units 07:25 Sodium 144 D (137-145) mmol/L Potassium 2.3 L* D (3.6-5.0) mmol/L Chloride 101.8 (98-107) mmol/L Carbon Dioxide 23 (22-30) mmol/L BUN 15 (7-17) mg/dL Creatinine 1.2 D (0.7-1.2) mg/dL Glucose 206 H (65-100) mg/dL Calcium 7.2 L (8.4-10.2) mg/dL Total Bilirubin 0.50 (0.1-1.2) mg/dL AST 85 H (5-40) units/L ALT 67 H (7-56) units/L Alkaline Phosphatase 149 H (35-129) units/L Total Protein 5.3 L (6.3-8.2) g/dL Albumin 2.2 L (3.9-5) g/dL - Imaging Chest x-ray: report reviewed, image reviewed Abdominal x-ray: report reviewed, image reviewed CT scan - abdomen: report reviewed, image reviewed CT scan - pelvis: report reviewed, image reviewed Assessment and Plan 38 yo F with 1. ileus 2. VDRF 3. s/p code blue 4. shock - multifactorial 5. seizure Plan: The patient is critically ill. She is currently on 5 pressors with no readable blood pressure. She is unresponsive on vent and currently not on sedation. Echo showed severe hypokinesis or left ventricle. At this point her prognosis is grave. Continue critical care management. Continue NGT to LIWS and aggressive IVF hydration. No family present and per nursing, unable to locate family or NOK. Patient was incarcerated and came to hospital from shelter. No surgical intervention at this time. Thank you, please call with questions.
--- NOTE | 2019-01-22 17:33 | XRay Report ---
CHEST 1 VIEW INDICATION: severe hypoxemia COMPARISON: 01/20/2019 FINDINGS: Support devices: Nasogastric tube has been advanced and is now looped in the stomach. Endotracheal tu be position unchanged. Heart: Normal and unchanged. Lungs/Pleura: There has now developed focal parenchymal density in the right perihilar region. Inspir ation is less optimal, and this could possibly be due to atelectasis, but the appearance is worrisome for developing pneumonia. IMPRESSION: 1. Question developing right perihilar pneumonia. Suggest close follow-up. Signer Name: Edward Santiago MD Signed: 01/22/2019 5:29 PM Workstation Name: [id number]
[2019-01-22] MEDS ORDERED: DECADRON IV SCH ×2 (18:00)
[2019-01-22] MEDS: MAXIPIME/NS 2 GM/100 ML 2 GM/100 ML BAG IV SCH ×2 (18:23→22:40)
[2019-01-22] MEDS ORDERED: D50W (25GM) Syringe IV PRN (18:38)
[2019-01-23] MEDS: LEVOPHED 8 MG in NACL 0.9% 250ML 242 ML IV SCH ×2 (00:10→03:34)
[2019-01-23] MEDS: SODIUM BICARBONATE 150 MEQ in D5W 1,000 ML IV SCH (00:10)
[2019-01-23] MEDS: HumaLOG SUB-Q SCH (00:15)
[2019-01-23] MEDS ORDERED: DECADRON IV SCH (02:00)
[2019-01-23] MEDS: NEO-SYNEPHRINE 100 MG in NACL 0.9% 90 ML IV SCH (02:10)
[2019-01-23 04:39] VITALS: BP 142/28
--- NOTE | 2019-01-23 05:41 | Event Note ---
CODE blue ACLS protocol was initiated there was no ROSC time of 517
[2019-01-23] MEDS ORDERED: ROCEPHIN/NS 1 GM/50 ML 1 GM/50 ML BAG IV SCH (10:00)
[2019-01-23] MEDS ORDERED: LEVAQUIN 750MG/150ML 750 MG/150 ML BAG IV SCH (10:00)
--- NOTE | 2019-01-23 14:50 | Death Summary ---
Summary - Providers Date of service: 01/23/19 Consults: 01/13/19 19:42 Consult to Physician [CONS] Routine Comment: Consulting Provider: LEVI MARIN Physician Instructions: Reason For Exam: seizure disorder, post ictal 01/13/19 19:51 Consult to Physician [CONS] Routine Comment: is aware Consulting Provider: SHONDA GIRARD Physician Instructions: Reason For Exam: ?? Upper GI bleed 01/14/19 07:55 Speech Therapy Evaluation and Treat [CONS] Routine Reason For Exam: failed bedside swallow 01/14/19 10:39 Consult to Physician [CONS] Routine Comment: md saw patient Consulting Provider: MEGHNA LAUREANO Physician Instructions: Reason For Exam: LEUKOCYTOSIS, CHOLELITHIASIS, POSS SEPSIS 01/17/19 23:29 Consult to Dietitian/Nutrition [CONS] Routine Physician Instructions: Reason For Exam: Reason for Consult: Poor oral intake 01/19/19 08:49 Occupational Therapy Evaluate and Treat [CONS] Routine Comment: Reason For Exam: generalized weakness Physical Therapy Evaluation and Treat [CONS] Routine Comment: Reason For Exam: Generalized weakness 01/19/19 09:25 Consult to Dietitian/Nutrition [CONS] Routine Physician Instructions: Reason For Exam: Reason for Consult: Write/Manage Tube Feeding 01/20/19 07:46 Consult to Physician [CONS] Routine Comment: Consulting Provider: LYNETTE PEARL Physician Instructions: Reason For Exam: AMS, 01/20/19 19:00 Consult to Wound/ET Nurse [CONS] Urgent Reason For Exam: wound eval-self lacerated tongue 01/2001/21/19 14:16 Consult to PICC Line RN [CONS] Routine Reason For Exam: IV meds Type Line:: PICC 01/22/19 13:38 Consult to Physician [CONS] Routine Comment: Consulting Provider: GUERITA DUENAS Physician Instructions: Reason For Exam: s/p cardiac arrest 01/22/19 15:25 Consult to Physician [CONS] Urgent Comment: Consulting Provider: MELISSA YOUNG Physician Instructions: Reason For Exam: evaluate for bowel obstruction Attending: SUMIT GA - summary Date of admission: 01/13/19 19:42 Date of : 01/23/19 Disposition: Ms. French is a 38 y/o female with an unknown medical history who presented to [facility] from the [facility] with altered mental status. She was seen at the [facility] with concern for dehydration, lethargy, and no verbal response. She was found to be tachycardic and had coffee ground emesis. intubated and unresponsive at the time of exam, so HPI obtained from the medical record. Per chart notes, she came from the [facility] at the [facility] with lethargy, confusion and suspected dehydration. She was also noted to be tachycardic with HR in the 130s and had coffee ground emesis. A CT head was normal, CXR normal. Abdominal CT showed cholelithiasis. Initially with leukocytosis which has since improved with hydration. In the ED, she experienced witnessed seizures and became encephalopathic and hypokalemic. She was started on antibiotics d/t suspected sepsis, which was subsequently ruled out. EEG negative for seizure activity. Her mental status and respiratory status subsequently deteriorated; a Code Blue was called d/t agonal breathing. She was intubated and placed on mechanical ventilation for respiratory failure. The patient remained unresponsive throughout the hospital stay. Patient had further deterioration with shock requiring multiple pressors. Etiology of the shot was multifactorial sepsis and cardiogenic. Echo showed severe hypokinesis or left ventricle. Attempts were made to contact the family for information. However, patient was listed at the [facility] as homeless. Dedicated summary time 35 minutes spent - Final diagnosis (1) Septic shock Note: Final diagnosis: (2) Cardiogenic shock Note: Final diagnosis: (3) Acute metabolic encephalopathy Note: Final diagnosis: (4) Cholelithiasis Note: Final diagnosis: (5) Hyperammonemia Note: Final diagnosis: (6) Lactic acidosis Note: Final diagnosis: (7) Liver disease Note: Final diagnosis: (8) Metabolic acidosis Note: Final diagnosis: (9) Seizure Note: Final diagnosis: (10) Status epilepticus Note: Final diagnosis:
[2019-01-23] MEDS ORDERED: LIDOCAINE VISCOUS 2% ONE (15:17)
[2019-01-23] MEDS ORDERED: NACL 0.9% 1000 ML ONE (15:17)
== END 2019-01-23 09:30 | DRG 871 ==
LOC: ED 15:24 → IMCU 19:42 → 4A 01-18 15:21 → CC1 01-20 08:12
PROVIDERS: ADMIT Internal Medicine; ATTEND Hospitalist
PROC: 4A033R1 Measurement of Arterial Saturation, Peripheral, Percutaneous Approach (ICD-10-PCS; principal; 2019-01-13)
PROC: 0BH17EZ Insertion of Endotracheal Airway into Trachea, Via Natural or Artificial Opening (ICD-10-PCS; 2019-01-20)
PROC: 5A1945Z Respiratory Ventilation, 24-96 Consecutive Hours (ICD-10-PCS; 2019-01-20)
PROC: 5A12012 Performance of Cardiac Output, Single, Manual (ICD-10-PCS; 2019-01-22)
PROC: 02HV33Z Insertion of Infusion Device into Superior Vena Cava, Percutaneous Approach (ICD-10-PCS; 2019-01-22)
PROC: B548ZZA Ultrasonography of Superior Vena Cava, Guidance (ICD-10-PCS; 2019-01-22)
PROC: 05HA33Z Insertion of Infusion Device into Left Brachial Vein, Percutaneous Approach (ICD-10-PCS; 2019-01-22)
DX: A41.9 Sepsis, unspecified organism (principal); G93.41 Metabolic encephalopathy; K72.00 Acute and subacute hepatic failure without coma; J96.00 Acute respiratory failure, unspecified whether with hypoxia or hypercapnia; R65.21 Severe sepsis with septic shock; E72.20 Disorder of urea cycle metabolism, unspecified; K92.2 Gastrointestinal hemorrhage, unspecified; K56.7 Ileus, unspecified; Z99.11 Dependence on respirator [ventilator] status; K80.20 Calculus of gallbladder without cholecystitis without obstruction; E87.6 Hypokalemia; E86.0 Dehydration; E83.42 Hypomagnesemia; G40.401 Other generalized epilepsy and epileptic syndromes, not intractable, with status epilepticus; E86.9 Volume depletion, unspecified; E83.39 Other disorders of phosphorus metabolism; R57.0 Cardiogenic shock
CPT/HCPCS: 36415; 36600; 70450; 71045; 74018; 74177; 80048; 80053; 80307; 80320; 81001; 82140; 82533; 82550; 82803; 82962; 83615; 83690; 83735; 84100; 84132; 84443; 84484; 84702; 85014; 85018; 85025; 85027; 85610; 85730; 86140; 87040; 87070; 87086; 87205; 92950; 93005; 93010; 93306; 94002; 94003; 95819; 96361; 96365; 96366; 96368; 96372; 96375; G0378; C9113; G0480; J0171; J0330; J0610; J0692; J0696; J1100; J1250; J1265; J1650; J1815; J1953; J2060; J2270; J2310; J2370; J3370; J3475; J3480; J7030; J7040; J7042; J7050; J7070; P9047; Q9967